=== PATIENT | male | born 1970 | race Caucasian/White ===

== ENCOUNTER 2016-08-14 11:54 | Emergency (ER) | payer SELFPAY ==
[2016-08-14 13:25] LABS: Urine Drugs of Abuse Note Disclamer
[2016-08-14 13:45] LABS: Bilirubin,Urine NEG (Negative); Blood,Urine NEG (Negative); Ketones,Urine TR mg/dL (Negative); Leukocyte Esterase,Urine NEG (Negative); Mucus,Urine FEW /HPF; Nitrite,Urine NEG (Negative); Urobilinogen,Urine < 2.0 mg/dL (<2.0); WBC,Urine < 1.0 /HPF (0.0-6.0)
[2016-08-14 14:01] LABS: Basophils % (Auto) 0.9 % (0.0-1.8); Eosinophils % (Auto) 0.7 % (0.0-4.3); Hematocrit 45.4 % (35.5-45.6); Hemoglobin 14.9 gm/dl (11.8-15.2); Mean Corpuscular HGB Conc 33 % (32-34); Mean Corpuscular Hemoglobin 32 pg (28-32); Mean Corpuscular Volume 98 fl (84-94); Platelet Count 172 K/mm3 (140-440); Red Blood Count 4.63 M/mm3 (3.65-5.03); Red Cell Distribution Width 17.6 % (13.2-15.2); White Blood Count 8.2 K/mm3 (4.5-11.0)
[2016-08-14 14:08] LABS: Anion Gap 23 mmol/L; BUN/Creatinine Ratio 12.22; Blood Urea Nitrogen 11 mg/dL (9-20); Calcium 9.8 mg/dL (8.4-10.2); Carbon Dioxide 26 mmol/L (22-30); Chloride 101.6 mmol/L (98-107); Glucose 112 mg/dL (75-100); Potassium 5.1 mmol/L (3.6-5.0); Sodium 145 mmol/L (137-145)
[2016-08-14] MEDS ORDERED: ATIVAN PO ONE (22:42)
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
[2016-08-14 23:07] VITALS: BP 161/99
== END 2016-08-14 23:35 | disposition home or self-care (01) ==
LOC: ED 11:54
DX: F10.129 Alcohol abuse with intoxication, unspecified (principal); I10 Essential (primary) hypertension; E11.9 Type 2 diabetes mellitus without complications; J45.909 Unspecified asthma, uncomplicated; F17.200 Nicotine dependence, unspecified, uncomplicated
CPT/HCPCS: 36415; 80048; 80307; 81001; 82962; 83735; 85025; 99284; G0480; 80320

== ENCOUNTER 2016-10-24 21:24 | Emergency (ER) | payer SELFPAY ==
[2016-10-24 22:15] LABS: Urine Drugs of Abuse Note Disclamer
[2016-10-24 22:26] LABS: Bilirubin,Urine NEG (Negative); Blood,Urine SM (Negative); Ketones,Urine NEG (Negative); Leukocyte Esterase,Urine NEG (Negative); Mucus,Urine FEW /HPF; Nitrite,Urine NEG (Negative); Urobilinogen,Urine < 2.0 mg/dL (<2.0); WBC,Urine < 1.0 /HPF (0.0-6.0)
[2016-10-24 22:48] LABS: Basophils % (Auto) 0.8 % (0.0-1.8); Eosinophils % (Auto) 1.9 % (0.0-4.3); Hematocrit 43.2 % (35.5-45.6); Hemoglobin 14.7 gm/dl (11.8-15.2); Mean Corpuscular HGB Conc 34 % (32-34); Mean Corpuscular Hemoglobin 34 pg (28-32); Mean Corpuscular Volume 99 fl (84-94); Platelet Count 146 K/mm3 (140-440); Red Blood Count 4.35 M/mm3 (3.65-5.03); Red Cell Distribution Width 14.6 % (13.2-15.2); White Blood Count 6.3 K/mm3 (4.5-11.0)
[2016-10-24 23:06] LABS: Anion Gap 21 mmol/L; BUN/Creatinine Ratio 21.42; Blood Urea Nitrogen 15 mg/dL (9-20); Calcium 8.4 mg/dL (8.4-10.2); Carbon Dioxide 22 mmol/L (22-30); Chloride 100.5 mmol/L (98-107); Glucose 107 mg/dL (75-100); Potassium 3.8 mmol/L (3.6-5.0); Sodium 140 mmol/L (137-145)
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
[2016-10-25 03:18] VITALS: BP 122/74
== END 2016-10-25 03:31 | disposition home or self-care (01) ==
LOC: ED 21:24
DX: F10.129 Alcohol abuse with intoxication, unspecified (principal); I10 Essential (primary) hypertension; E11.9 Type 2 diabetes mellitus without complications; J45.909 Unspecified asthma, uncomplicated; F17.200 Nicotine dependence, unspecified, uncomplicated
CPT/HCPCS: 36415; 80048; 80307; 81001; 85025; 99284; G0480; 80320

== ENCOUNTER 2016-11-05 12:07 | Emergency (ER) | payer SELFPAY ==
--- NOTE | 2016-11-05 12:35 | Emergency Department Report ---
Chief Complaint: Alcohol Stated Complaint: SEIZURE/HALLUECINATING/CHEST PAIN /MH Time Seen by Provider: 11/05/16 12:30 - HPI History of Present Illness: PT states he has a hx of ETOH abuse. PT states he thinks he was going thru withdrawal because his reported that he had a seizure. PT states his last drink of ETOH was 3-4 hours ago. PT states he wants to get help. PT states he will hallucinate if he does not drink. - ROS Review of Systems: + ETOH abuse since 2010 + cp after sz + sz - Exam Physical Exam: pt is alert and oriented in triage, no tremors noted pt denies hallucinations currently MSE screening note: Focused history and physical exam performed. Due to findings the following was ordered: ekg, ct, xr, lab ED Disposition for MSE Condition: Stable
--- NOTE | 2016-11-05 12:50 | XRay Report ---
ROUTINE CHEST, TWO VIEWS: HISTORY: chest pain. The trachea, heart, mediastinal contour, lung cisneros and bony thorax are unremarkable. IMPRESSION: Unremarkable chest x-ray.
--- NOTE | 2016-11-05 13:19 | Cat Scan Report ---
CT HEAD WITHOUT CONTRAST: HISTORY: Alcohol intoxication, mental status changes. Serial contiguous axial images were obtained through the cranium. Intravenous contrast material was not administered. The ventricles are normal in size and appearance. There is no mass effect or midline shift. No areas of abnormally increased or decreased attenuation are seen. No mass lesion is seen. The mastoid air cells and visualized portions of the sinuses are normal. IMPRESSION: Cranial CT scan within normal limits. No change since 05/24/15.
[2016-11-05 14:37] LABS: Basophils % (Auto) 1.5 % (0.0-1.8); Eosinophils % (Auto) 0.6 % (0.0-4.3); Hematocrit 46.5 % (35.5-45.6); Mean Corpuscular HGB Conc 34 % (32-34); Mean Corpuscular Hemoglobin 35 pg (28-32); Mean Corpuscular Volume 100 fl (84-94); Platelet Count 184 K/mm3 (140-440); Red Blood Count 4.63 M/mm3 (3.65-5.03); Red Cell Distribution Width 14.7 % (13.2-15.2); White Blood Count 10.7 K/mm3 (4.5-11.0)
[2016-11-05 14:39] LABS: Urine Drugs of Abuse Note Disclamer
[2016-11-05 14:45] LABS: Alanine Aminotransferase 94 units/L (7-56); Albumin 4.3 g/dL (3.9-5); Albumin/Globulin Ratio 1.2 %; Alkaline Phosphatase 66 units/L (35-129); Anion Gap 21 mmol/L; Blood Urea Nitrogen 9 mg/dL (9-20); Calcium 9.3 mg/dL (8.4-10.2); Carbon Dioxide 26 mmol/L (22-30); Chloride 96.6 mmol/L (98-107); Glucose 147 mg/dL (75-100); INR 0.8 (0.87-1.13); Lipase 144 units/L (13-60); Potassium 4.8 mmol/L (3.6-5.0); Sodium 139 mmol/L (137-145); Total Protein 7.9 g/dL (6.3-8.2)
[2016-11-05 14:52] LABS: Bacteria,Urine 1+ /HPF (Negative); Bilirubin,Urine NEG (Negative); Blood,Urine SM (Negative); Ketones,Urine NEG (Negative); Leukocyte Esterase,Urine NEG (Negative); Nitrite,Urine NEG (Negative); Urobilinogen,Urine < 2.0 mg/dL (<2.0)
[2016-11-05 14:58] LABS: RBC,Urine < 1.0 /HPF (0.0-6.0); WBC,Urine < 1.0 /HPF (0.0-6.0)
[2016-11-05 15:24] VITALS: BP 121/84
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
[2016-11-05] MEDS ORDERED: VITAMIN B-1 100 MG, FOLVITE 1 MG, INFUVITE 10 ML in NACL 0.9% 1000 ML 1,000 ML IV ONE (16:25)
== END 2016-11-05 18:34 | disposition home or self-care (01) ==
LOC: ED 12:07
DX: F10.10 Alcohol abuse, uncomplicated (principal); I10 Essential (primary) hypertension; E11.9 Type 2 diabetes mellitus without complications; J45.909 Unspecified asthma, uncomplicated; E78.00 Pure hypercholesterolemia, unspecified; F17.200 Nicotine dependence, unspecified, uncomplicated
CPT/HCPCS: 36415; 70450; 71020; 80053; 80307; 81001; 83690; 83735; 84484; 85025; 85610; 85730; 93005; 93010; 96365; 96366; 99284; G0480; J3411; J7030; 80320

== ENCOUNTER 2018-04-21 09:14 | Emergency (ER) | payer SELFPAY ==
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
[2018-04-21 10:35] LABS: Basophils # (Auto) 0.1 K/mm3 (0.0-0.1); Basophils % (Auto) 1.3 % (0.0-1.8); Eosinophils % (Auto) 0.3 % (0.0-4.3); Hematocrit 46.6 % (35.5-45.6); Hemoglobin 15.8 gm/dl (11.8-15.2); Lymphocytes # (Auto) 1.8 K/mm3 (1.2-5.4); Lymphocytes % (Auto) 23.7 % (13.4-35.0); Mean Corpuscular HGB Conc 34 % (32-34); Mean Corpuscular Volume 96 fl (84-94); Monocytes # (Auto) 0.6 K/mm3 (0.0-0.8); Monocytes % (Auto) 8.1 % (0.0-7.3); Platelet Count 206 K/mm3 (140-440); Red Blood Count 4.86 M/mm3 (3.65-5.03); Red Cell Distribution Width 14.8 % (13.2-15.2)
[2018-04-21 10:37] LABS: Color,Urine Yellow (Yellow)
[2018-04-21 10:38] LABS: Bilirubin,Urine NEG (Negative); Blood,Urine SM (Negative); Mucus,Urine FEW /HPF; Urobilinogen,Urine < 2.0 mg/dL (<2.0)
[2018-04-21 10:56] LABS: Alanine Aminotransferase 30 units/L (7-56); Albumin 4.1 g/dL (3.9-5); BUN/Creatinine Ratio 19; Blood Urea Nitrogen 17 mg/dL (9-20); Calcium 8.3 mg/dL (8.4-10.2); Hemolysis Index 25
[2018-04-21] MEDS ORDERED: VITAMIN B-1 100 MG, FOLVITE 1 MG, INFUVITE 10 ML in NACL 0.9% 1000 ML 1,000 ML IV ONE (11:06)
[2018-04-21] MEDS ORDERED: LIBRIUM PO PRN ×2 (11:10)
[2018-04-21] MEDS ORDERED: ATIVAN IV PRN (11:10)
[2018-04-21] MEDS ORDERED: ATIVAN PO PRN (11:10)
[2018-04-21 11:16] LABS: Amphetamine Screen,Urine PRESUMPTIVE NEGATIVE; Benzodiazepines Screen,Urine PRESUMPTIVE NEGATIVE; Cannabinoid Screen,Urine PRESUMPTIVE NEGATIVE; Cocaine Screen,Urine PRESUMPTIVE NEGATIVE; Methadone Screen,Urine PRESUMPTIVE NEGATIVE; Opiate Screen,Urine PRESUMPTIVE NEGATIVE
--- NOTE | 2018-04-21 11:50 | XRay Report ---
LEFT ELBOW, 3 views: History: left elbow pain. The bony architecture is intact without evidence of fracture or dislocation. No significant soft tissue abnormality is seen. IMPRESSION: Normal left elbow.
--- NOTE | 2018-04-21 11:50 | XRay Report ---
LEFT KNEE, 3 views: History: Fall, knee pain. Findings: Normal bone mineralization. Mild osteoarthritic changes are identified. No evidence for fracture, osteochondral defect or bone lesion. Large joint effusion is suspected on the lateral image. Bipartite patella is noted. IMPRESSION: Mild degenerative changes. Large joint effusion. Internal derangement is suspected MRI could be obtained. No acute bony injury is detected.
--- NOTE | 2018-04-21 13:50 | Consultation ---
History of Present Illness - Reason for Consult Consult date: 04/21/18 Reason for consult: Mental Health Evaluation Requesting physician: GINNY SAVAGE - Chief Complaint Chief complaint: "I want to stop drinking" - History of Present Psychiatric Illness 47-year-old male whop presented to the ER for ETOH. This patient is known to me. He stated that he started back drinking a couple of days ago because he was "stressed." He stated he isn't making enough money to help his with their financial obligations. He stated working out a plan with his to lessen the financial load on her. He stated that his main issue now is to stay "sober." He stated that he is willing to commit to rehab services once discharged. The patient has a hx of depression and took Remeron. He stated that he don"t like th e side effect of the medication and would like to try another antidepressant. He denies SI/HO's and AVH's. He denies erratic sleep and a poor appetite. He denies recreational drug use. Medications and Allergies Allergies Allergy/AdvReac Type Severity Reaction Status Date / Time No Known Allergies Allergy Verified 04/21/18 09:19 Home Medications Medication Instructions Recorded Confirmed Last Taken Type chlordiazePOXIDE [Librium] 25 mg PO DAILY #20 capsule 08/14/16 Unknown Rx LORazepam [Ativan] 0.5 mg PO BID PRN #14 tablet 11/05/16 Unknown Rx amLODIPine [Norvasc] 5 mg PO DAILY 02/01/18 02/01/18 Unknown History HYDROcodone/APAP 5-325 [[place] 1 each PO Q4HR PRN #12 tablet 03/10/18 Unknown Rx 5/325] Ibuprofen [Motrin] 800 mg PO Q8HR PRN #20 tablet 03/10/18 Unknown Rx Mirtazapine [Remeron] 15 mg PO QHS #20 tablet 03/24/18 Unknown Rx Active Meds: Active Medications Chlordiazepoxide HCl (Librium) 50 mg PO Q1HR PRN PRN Reason: CIWA-Ar 8-15 Chlordiazepoxide HCl (Librium) 100 mg PO Q1HR PRN PRN Reason: CIWA-Ar 16-25 Thiamine HCl 100 mg/ Folic Acid 1 mg/ Multivitamins/Minerals 10 ml/ Sodium Chloride 1,011.2 mls @ 250 mls/hr IV ONCE ONE Stop: 04/21/18 15:08 Last Admin: 04/21/18 11:17 Dose: 250 mls/hr Documented by: Lorazepam (Ativan) 4 mg PO Q1HR PRN PRN Reason: CIWA-Ar 16-25 Lorazepam (Ativan) 4 mg IV Q15MIN PRN PRN Reason: CIWA-Ar >25 Past psychiatric history - Past Medical History Past Medical History: No medical history Past Surgical History: No surgical history - past Psychiatric treatment and history psychiatric treatment history: Inpatient psy setting in the past. Hx of alcohol abuse. Denies a fam psy hx. - Social History Social history: lives with family Mental Status Exam - Vital signs Last Vital Signs Temp 98.4 F 04/21/18 09:19 Pulse 106 H 04/21/18 09:19 Resp 18 04/21/18 09:19 BP 138/85 04/21/18 09:19 Pulse Ox 98 04/21/18 09:19 - Exam Narrative exam: MSE: Appearance: calm, cooperative Behavior: regular eye contact Speech: regular rate and tone Mood: "okay" Affect: congruent to mood Thought Process: circumstantial Thought Content: denies SI/HI's and AVH's Motor Activity: ambulatory Cognition: A/O x3 Insight: fair Judgment: variable Results Result Diagrams: 04/21/18 10:26 04/21/18 10:26 Abnormal lab results 04/21/18 04/21/18 04/21/18 Range/Units 10:26 10:26 10:26 Hgb 15.8 H (11.8-15.2) gm/dl Hct 46.6 H (35.5-45.6) % MCV 96 H (84-94) fl MCH 33 H (28-32) pg [place] % (Auto) 8.1 H (0.0-7.3) % Glucose 159 H (75-100) mg/dL Calcium 8.3 L (8.4-10.2) mg/dL AST 45 H (5-40) units/L Plasma/Serum Alcohol 0.32 H (0-0.07) % All other labs normal. Assessment and Plan Assessment and plan: Impression: Hx of Depression. Alcohol Use DO. Alcohol Intoxication. Today the patient is calm and cooperative during the assessment. Recommendation/Plan: Start Zoloft 50 mg Po daily for depression. Continue CIWA. Discussed possible suicidality/medication induced tonia with the patient reference Zoloft. Discussed the importance to abstain from alcohol consumption (etoh). Dispo: Once the patient is medically clear, he can follow up with [facility] for outpatient psy services. Staffed with Dr Liv Sewell.
[2018-04-21] MEDS ORDERED: ZOLOFT PO SCH (14:00)
[2018-04-21 14:32] VITALS: BP 111/80
== END 2018-04-21 14:00 | disposition left against medical advice (07) ==
LOC: ED 09:14
DX: F32.9 Major depressive disorder, single episode, unspecified (principal); F10.129 Alcohol abuse with intoxication, unspecified; M25.562 Pain in left knee; M79.602 Pain in left arm
CPT/HCPCS: 29505; 36415; 73080; 73564; 80053; 80307; 81001; 83735; 85025; 96365; 96366; 99284; G0480; J3411; J7030; 80320

== ENCOUNTER 2018-04-22 09:07 | Emergency (ER) | payer SELFPAY ==
[2018-04-22] MEDS ORDERED: NACL 0.9% 1000 ML 1,000 ML IV ONE (10:28)
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
[2018-04-22 10:55] LABS: Basophils # (Auto) 0.1 K/mm3 (0.0-0.1); Eosinophils % (Auto) 0.2 % (0.0-4.3); Hemoglobin 15.8 gm/dl (11.8-15.2); Lymphocytes # (Auto) 1.2 K/mm3 (1.2-5.4); Lymphocytes % (Auto) 19.2 % (13.4-35.0); Mean Corpuscular HGB Conc 34 % (32-34); Mean Corpuscular Volume 94 fl (84-94); Monocytes # (Auto) 0.5 K/mm3 (0.0-0.8); Monocytes % (Auto) 8.1 % (0.0-7.3); Platelet Count 194 K/mm3 (140-440); Red Cell Distribution Width 14.6 % (13.2-15.2)
[2018-04-22] MEDS ORDERED: VITAMIN B-1 100 MG, FOLVITE 1 MG, INFUVITE 10 ML in NACL 0.9% 1000 ML 1,000 ML IV ONE (11:00)
[2018-04-22 11:02] LABS: Alanine Aminotransferase 36 units/L (7-56); Albumin 4.2 g/dL (3.9-5); BUN/Creatinine Ratio 21; Blood Urea Nitrogen 15 mg/dL (9-20); Calcium 8.2 mg/dL (8.4-10.2); Hemolysis Index 11
[2018-04-22] MEDS ORDERED: LIBRIUM PO PRN ×2 (13:27)
[2018-04-22] MEDS ORDERED: ATIVAN PO PRN (13:27)
[2018-04-22] MEDS ORDERED: ZOFRAN IV ONE ×2 (13:29→17:47)
[2018-04-22] MEDS ORDERED: TYLENOL PO ONE (13:39)
[2018-04-22 13:57] LABS: Bilirubin,Urine NEG (Negative); Blood,Urine NEG (Negative); Color,Urine Yellow (Yellow); Mucus,Urine FEW /HPF; Urobilinogen,Urine < 2.0 mg/dL (<2.0)
[2018-04-22 14:08] LABS: Amphetamine Screen,Urine PRESUMPTIVE NEGATIVE; Benzodiazepines Screen,Urine PRESUMPTIVE NEGATIVE; Cannabinoid Screen,Urine PRESUMPTIVE NEGATIVE; Cocaine Screen,Urine PRESUMPTIVE NEGATIVE; Methadone Screen,Urine PRESUMPTIVE NEGATIVE; Opiate Screen,Urine PRESUMPTIVE NEGATIVE
[2018-04-22] MEDS ORDERED: ZOFRAN ONE (17:42)
[2018-04-22] MEDS: ATIVAN IV PRN (21:06)
[2018-04-23] MEDS ORDERED: ZOFRAN IV ONE (01:46)
[2018-04-23 01:53] VITALS: BP 130/79
[2018-04-23] MEDS: ATIVAN IV PRN (01:53)
== END 2018-04-23 06:25 | disposition home or self-care (01) ==
LOC: ED 09:07
DX: F10.230 Alcohol dependence with withdrawal, uncomplicated (principal); M25.562 Pain in left knee; I10 Essential (primary) hypertension; E11.9 Type 2 diabetes mellitus without complications; J45.909 Unspecified asthma, uncomplicated; F17.200 Nicotine dependence, unspecified, uncomplicated; E78.00 Pure hypercholesterolemia, unspecified; Z98.890 Other specified postprocedural states; Z79.899 Other long term (current) drug therapy
CPT/HCPCS: 29505; 36415; 80053; 80307; 81001; 85025; 96365; 96366; 96375; 96376; 99284; G0480; J2060; J2405; J3411; J7030; 80320

== ENCOUNTER 2018-05-28 13:06 | Emergency (ER) | payer SELFPAY ==
--- NOTE | 2018-05-28 13:32 | Emergency Department Report ---
Blank Doc - Documentation Documentation: Patient is here for Detox This initial assessment diagnostic orders/clinical plan/treatment (s) is/Are subject change based on patient's health status, clinical progression and re- assessment by fellow clinical providers in the ED. Further treatment and work-up at subsequent clinical providers discretion. Patient/guardians urged not to elope from their condition may be serious if not clinically assessed and managed. Initial order include:
[2018-05-28 13:50] LABS: Basophils # (Auto) 0.1 K/mm3 (0.0-0.1); Basophils % (Auto) 1.3 % (0.0-1.8); Eosinophils # (Auto) 0.1 K/mm3 (0.0-0.4); Eosinophils % (Auto) 0.8 % (0.0-4.3); Hematocrit 42.1 % (35.5-45.6); Hemoglobin 14.4 gm/dl (11.8-15.2); Lymphocytes # (Auto) 1.1 K/mm3 (1.2-5.4); Lymphocytes % (Auto) 14.7 % (13.4-35.0); Mean Corpuscular HGB Conc 34 % (32-34); Mean Corpuscular Hemoglobin 35 pg (28-32); Mean Corpuscular Volume 101 fl (84-94); Monocytes # (Auto) 0.8 K/mm3 (0.0-0.8); Monocytes % (Auto) 10.6 % (0.0-7.3); Platelet Count 274 K/mm3 (140-440); Red Blood Count 4.16 M/mm3 (3.65-5.03); Red Cell Distribution Width 17.1 % (13.2-15.2)
[2018-05-28 14:12] LABS: Alanine Aminotransferase 114 units/L (7-56); Albumin 4.3 g/dL (3.9-5); BUN/Creatinine Ratio 9; Blood Urea Nitrogen 7 mg/dL (9-20); Calcium 9.1 mg/dL (8.4-10.2); Hemolysis Index 9
[2018-05-28] MEDS ORDERED: NACL 0.9% 1000 ML 1,000 ML IV ONE (16:03)
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
[2018-05-28] MEDS ORDERED: VITAMIN B-1 PO ONE (17:00)
[2018-05-28] MEDS ORDERED: FOLVITE 1 MG, INFUVITE 10 ML in NACL 0.9% 1000 ML 1,000 ML IV ONE (17:30)
[2018-05-28] MEDS ORDERED: ATIVAN IV PRN (19:05)
[2018-05-28] MEDS: ATIVAN PO PRN ×3 (19:50→23:36)
[2018-05-29] MEDS: ATIVAN PO PRN (03:05)
[2018-05-29 05:33] VITALS: BP 145/78
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
== END 2018-05-29 08:43 | disposition left against medical advice (07) ==
LOC: ED 13:06
DX: F10.239 Alcohol dependence with withdrawal, unspecified (principal); I10 Essential (primary) hypertension; E11.9 Type 2 diabetes mellitus without complications; E78.00 Pure hypercholesterolemia, unspecified
CPT/HCPCS: 36415; 80053; 85025; 96365; 96375; 99284; G0480; J2060; J7030; 80320

== ENCOUNTER 2018-06-06 09:18 | Emergency (ER) | payer OTHER ==
[2018-06-06 10:37] LABS: Hematocrit 42.6 % (35.5-45.6); Hemoglobin 14.5 gm/dl (11.8-15.2); Mean Corpuscular HGB Conc 34 % (32-34); Mean Corpuscular Volume 103 fl (84-94); Platelet Count 233 K/mm3 (140-440); Red Blood Count 4.13 M/mm3 (3.65-5.03); Red Cell Distribution Width 17.3 % (13.2-15.2)
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
[2018-06-06 10:52] LABS: BUN/Creatinine Ratio 13; Blood Urea Nitrogen 9 mg/dL (9-20); Calcium 8.9 mg/dL (8.4-10.2); Hemolysis Index 18
[2018-06-06] MEDS ORDERED: NACL 0.9% 1000 ML 1,000 ML ONE (11:31)
[2018-06-06 11:39] LABS: Bilirubin,Urine NEG (Negative); Blood,Urine NEG (Negative); Color,Urine Straw (Yellow); Urobilinogen,Urine < 2.0 mg/dL (<2.0); WBC,Urine < 1.0 /HPF (0.0-6.0)
[2018-06-06] MEDS ORDERED: NACL 0.9% IV ONE (11:48)
[2018-06-06 11:55] LABS: Amphetamine Screen,Urine PRESUMPTIVE NEGATIVE; Benzodiazepines Screen,Urine PRESUMPTIVE NEGATIVE; Cannabinoid Screen,Urine PRESUMPTIVE NEGATIVE; Cocaine Screen,Urine PRESUMPTIVE NEGATIVE; Methadone Screen,Urine PRESUMPTIVE NEGATIVE; Opiate Screen,Urine PRESUMPTIVE NEGATIVE
[2018-06-06] MEDS ORDERED: NACL 0.9% 1000 ML 1,000 ML IV ONE (12:12)
[2018-06-06 12:42] LABS: Total Cells Counted 100
[2018-06-06 12:43] LABS: Anisocytosis 1+; Band Neutrophils # (Manual) 0.1 K/mm3; Basophils % (Manual) 0 % (0.0-1.8); Macrocytosis 1+; Platelet Estimate Consistent w Auto
[2018-06-06] MEDS ORDERED: ATIVAN IV ONE (14:37)
[2018-06-06] MEDS ORDERED: ATIVAN ONE (14:41)
[2018-06-06] MEDS ORDERED: ATIVAN IV PRN ×2 (17:27)
[2018-06-06] MEDS: ATIVAN IV PRN ×3 (17:37→22:05)
[2018-06-07] MEDS: ATIVAN IV PRN ×4 (08:22→22:45)
[2018-06-07] MEDS ORDERED: NORVASC PO SCH (10:00)
[2018-06-07 20:04] VITALS: BP 143/97
[2018-06-07] MEDS ORDERED: HABITROL TD ONE (21:00)
[2018-06-08] MEDS: ATIVAN IV PRN (00:43)
== END 2018-06-08 02:37 ==
LOC: ED 09:18
DX: F10.129 Alcohol abuse with intoxication, unspecified (principal); R45.851 Suicidal ideations; F32.9 Major depressive disorder, single episode, unspecified; I10 Essential (primary) hypertension; E11.9 Type 2 diabetes mellitus without complications; J45.909 Unspecified asthma, uncomplicated
CPT/HCPCS: 36415; 80048; 80307; 81001; 82962; 83735; 85007; 85025; 96374; 96376; 99285; G0480; J2060; J7030; 80320

== ENCOUNTER 2018-06-25 19:09 | Emergency (ER) | payer SELFPAY ==
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
[2018-06-25] MEDS ORDERED: NACL 0.9% 1000 ML 1,000 ML IV ONE (20:22)
[2018-06-25] MEDS ORDERED: HALDOL IM ONE (20:47)
[2018-06-25] MEDS ORDERED: BENADRYL IM ONE (20:48)
[2018-06-25] MEDS ORDERED: BENADRYL ONE (20:48)
[2018-06-25] MEDS ORDERED: HALDOL ONE (20:48)
[2018-06-25 20:51] LABS: Bilirubin,Urine NEG (Negative); Blood,Urine NEG (Negative); Color,Urine Straw (Yellow); Protein,Urine <15 mg/dL mg/dL (Negative); Urobilinogen,Urine < 2.0 mg/dL (<2.0)
[2018-06-25 20:59] LABS: Amphetamine Screen,Urine PRESUMPTIVE NEGATIVE; Benzodiazepines Screen,Urine PRESUMPTIVE NEGATIVE; Cannabinoid Screen,Urine PRESUMPTIVE NEGATIVE; Cocaine Screen,Urine PRESUMPTIVE NEGATIVE; Methadone Screen,Urine PRESUMPTIVE NEGATIVE; Opiate Screen,Urine PRESUMPTIVE NEGATIVE
[2018-06-25 20:59] LABS: Basophils # (Auto) 0.1 K/mm3 (0.0-0.1); Basophils % (Auto) 1.1 % (0.0-1.8); Eosinophils # (Auto) 0.1 K/mm3 (0.0-0.4); Eosinophils % (Auto) 1.3 % (0.0-4.3); Hematocrit 43.2 % (35.5-45.6); Lymphocytes # (Auto) 2.1 K/mm3 (1.2-5.4); Lymphocytes % (Auto) 27.3 % (13.4-35.0); Mean Corpuscular HGB Conc 35 % (32-34); Mean Corpuscular Hemoglobin 35 pg (28-32); Mean Corpuscular Volume 101 fl (84-94); Monocytes # (Auto) 0.7 K/mm3 (0.0-0.8); Monocytes % (Auto) 8.5 % (0.0-7.3); Platelet Count 441 K/mm3 (140-440); Red Cell Distribution Width 15.6 % (13.2-15.2)
[2018-06-25] MEDS ORDERED: VITAMIN B-1 PO ONE (21:00)
[2018-06-25 21:14] LABS: BUN/Creatinine Ratio 10; Blood Urea Nitrogen 7 mg/dL (9-20)
[2018-06-25 21:15] LABS: Alanine Aminotransferase 44 units/L (7-56); Albumin 4.4 g/dL (3.9-5); Calcium 9.2 mg/dL (8.4-10.2); Hemolysis Index 13
[2018-06-25] MEDS ORDERED: MAGNESIUM SULFATE IV ONE (21:15)
[2018-06-25] MEDS ORDERED: FOLVITE IV ONE (21:15)
[2018-06-25] MEDS ORDERED: INFUVITE IV ONE (21:15)
[2018-06-25] MEDS ORDERED: VITAMIN B1 IV ONE (21:15)
[2018-06-25] MEDS ORDERED: [UNRECOGNIZED DRUG - OTHER] IV ONE (21:15)
--- NOTE | 2018-06-26 01:25 | XRay Report ---
PROCEDURE: XR RIBS UNI W PA CHEST 3+V RT TECHNIQUE: A PA view of the chest was obtained along with 3 views of the right ribs. HISTORY: right rib pain after fall COMPARISONS: 11/05/2016 FINDINGS: There is no evidence of acute right-sided rib fracture. There is no pneumothorax. There is minimal at electasis versus scarring in the left lung base. The heart size is normal. Pleural fluid is not seen. IMPRESSION: No evidence of acute right-sided rib fracture. Minimal atelectasis versus scarring left lung base. No pneumothorax.. This document is electronically signed by Corey Shaw MD., June 26 2018 01:23:24 AM ET
[2018-06-26] MEDS: BENADRYL IM PRN ×2 (07:25→13:46)
[2018-06-26] MEDS: HALDOL IM PRN ×2 (07:25→16:59)
[2018-06-26] MEDS ORDERED: MOTRIN PO ONE (09:30)
[2018-06-26] MEDS ORDERED: ATIVAN IV PRN ×3 (20:47)
[2018-06-27] MEDS ORDERED: MOTRIN PO ONE ×2 (12:54→13:00)
[2018-06-27] MEDS ORDERED: TYLENOL PO ONE (20:44)
[2018-06-28] MEDS ORDERED: MOTRIN PO ONE (01:19)
[2018-06-28 14:31] VITALS: BP 129/99
--- NOTE | 2018-06-28 14:47 | Consultation ---
History of Present Illness - Reason for Consult Consult date: 06/28/18 Reason for consult: Mental Health Evaluation Requesting physician: UNRULY HERNÁNDEZ - Chief Complaint Chief complaint: "I was never suicidal" - History of Present Psychiatric Illness 48 y.o. male who presented to the ER for SI's. This patient is known to me. Today the patient is calm and cooperative during the assessment. He stated that he was misunderstood when he stated something about "dying." He stated that he told the "doctor" that he was having right side pain. He stated that he said he felt like he was going to "" because of the pain. He is adamant that he didn't say he was suicidal. He stated that he came to the ER for the pain he was experiencing. He stated that he must stop drinking (etoh) and that's a priority. He denies SI/HI's and AVH's. He denies being depressed. He denies recreational drug use. Medications and Allergies Allergies Allergy/AdvReac Type Severity Reaction Status Date / Time No Known Allergies Allergy Verified 04/21/18 09:19 Home Medications Medication Instructions Recorded Confirmed Last Taken Type amLODIPine [Norvasc] 5 mg PO DAILY 02/01/18 06/26/18 Unknown History Active Meds: Active Medications Diphenhydramine HCl (Benadryl) 50 mg IM Q6H PRN PRN Reason: Agitation Last Admin: 06/26/18 13:46 Dose: 50 mg Documented by: Haloperidol Lactate (Haldol) 5 mg IM Q8H PRN PRN Reason: Agitation Last Admin: 06/26/18 16:59 Dose: 5 mg Documented by: Lorazepam (Ativan) 2 mg IV Q1HR PRN PRN Reason: CIWA-Ar 8-15 Last Admin: 06/28/18 01:14 Dose: 2 mg Documented by: Lorazepam (Ativan) 4 mg IV Q1HR PRN PRN Reason: CIWA-Ar 16-25 Last Admin: 06/26/18 21:29 Dose: 4 mg Documented by: Lorazepam (Ativan) 4 mg IV Q15MIN PRN PRN Reason: CIWA-Ar >25 Past psychiatric history - Past Medical History Past Medical History: No medical history Past Surgical History: No surgical history - past Psychiatric treatment and history psychiatric treatment history: Hx of alcohol abuse, depression, and a previous suicide attempt. Denies a fam psy hx. - Social History Social history: lives with family Mental Status Exam - Vital signs Last Vital Signs Temp 98.5 F 06/28/18 14:30 Pulse 100 H 06/28/18 14:30 Resp 17 06/28/18 14:30 BP 129/99 06/28/18 14:30 Pulse Ox 96 06/28/18 14:30 - Exam Narrative exam: MSE: Appearance: calm, cooperative Behavior: regular eye contact Speech: regular rate and tone Mood: "okay" Affect: congruent to mood Thought Process: linear Thought Content: denies SI/HI's with AVH's Motor Activity: ambulatory Cognition: A/Ox 3 Insight: appropriate Judgment: appropriate Results Result Diagrams: 06/25/18 20:52 06/25/18 20:52 All other labs normal. Assessment and Plan Assessment and plan: Impression:Alcohol Use DO. Hx of Depression. Today the patient is calm and cooperative during the assessment. The patient is no threat to self. Recommendation/Plan: Rescind 1013. The do not need a prescription. Discussed the importance to abstain from alcohol consumption (etoh). Dispo: The patient can follow up with [facility] for outpatient psy services. Will staff with Dr Liv Sewell.
== END 2018-06-28 16:53 | disposition home or self-care (01) ==
LOC: ED 19:09 → EEVIPCON 19:09 → ED 06-28 16:53
DX: F10.129 Alcohol abuse with intoxication, unspecified (principal); I10 Essential (primary) hypertension; E11.9 Type 2 diabetes mellitus without complications; J45.909 Unspecified asthma, uncomplicated; F17.200 Nicotine dependence, unspecified, uncomplicated; E78.00 Pure hypercholesterolemia, unspecified
CPT/HCPCS: 36415; 71101; 80053; 80307; 81001; 85025; 96365; 96372; 96375; 96376; 99285; G0480; J1200; J1630; J2060; J3411; J3475; J7030; 80320

== ENCOUNTER 2018-07-08 12:34 | Emergency (ER) | payer SELFPAY ==
[2018-07-08 12:54] VITALS: BP 117/74
--- NOTE | 2018-07-08 12:54 | Emergency Department Report ---
Blank Doc - Documentation Documentation: This is a 48-year-old male that presents with alcohol detox. Denies any SI/HI. This initial assessment/diagnostic orders/clinical plan/treatment(s) is/are subject to change based on patient's health status, clinical progression and re- assessment by fellow clinical providers in the ED. Further treatment and workup at subsequent clinical providers discretion. Patient/guardians urged not to elope from the ED as their condition may be serious if not clinically assessed and managed. Initial orders include: 1- Patient sent to [facility] for further evaluation and treatment 2- labs 3- UA
[2018-07-08 13:16] LABS: Basophils # (Auto) 0.2 K/mm3 (0.0-0.1); Basophils % (Auto) 1.5 % (0.0-1.8); Eosinophils # (Auto) 0.2 K/mm3 (0.0-0.4); Eosinophils % (Auto) 1.6 % (0.0-4.3); Hemoglobin 15.7 gm/dl (11.8-15.2); Lymphocytes % (Auto) 17.7 % (13.4-35.0); Mean Corpuscular HGB Conc 35 % (32-34); Mean Corpuscular Volume 101 fl (84-94); Monocytes # (Auto) 0.7 K/mm3 (0.0-0.8); Monocytes % (Auto) 6.4 % (0.0-7.3); Platelet Count 342 K/mm3 (140-440); Red Blood Count 4.47 M/mm3 (3.65-5.03); Red Cell Distribution Width 14.8 % (13.2-15.2)
[2018-07-08 13:36] LABS: BUN/Creatinine Ratio 13; Blood Urea Nitrogen 9 mg/dL (9-20); Calcium 9.2 mg/dL (8.4-10.2); Hemolysis Index 8
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
== END 2018-07-08 15:25 | disposition home or self-care (01) ==
LOC: ED 12:34
DX: F10.129 Alcohol abuse with intoxication, unspecified (principal); F10.20 Alcohol dependence, uncomplicated; I10 Essential (primary) hypertension; E11.9 Type 2 diabetes mellitus without complications; F32.9 Major depressive disorder, single episode, unspecified; J45.909 Unspecified asthma, uncomplicated; E78.00 Pure hypercholesterolemia, unspecified; F17.200 Nicotine dependence, unspecified, uncomplicated; Y90.1 Blood alcohol level of 20-39 mg/100 ml
CPT/HCPCS: 36415; 80048; 85025; 99284; G0480; 80320

== ENCOUNTER 2018-07-14 10:43 | Emergency (ER) | payer SELFPAY ==
[2018-07-14 11:27] LABS: Basophils # (Auto) 0.1 K/mm3 (0.0-0.1); Basophils % (Auto) 1.4 % (0.0-1.8); Eosinophils % (Auto) 0.6 % (0.0-4.3); Hematocrit 42.5 % (35.5-45.6); Hemoglobin 14.6 gm/dl (11.8-15.2); Lymphocytes # (Auto) 1.1 K/mm3 (1.2-5.4); Lymphocytes % (Auto) 15.4 % (13.4-35.0); Mean Corpuscular HGB Conc 34 % (32-34); Mean Corpuscular Volume 101 fl (84-94); Monocytes # (Auto) 0.5 K/mm3 (0.0-0.8); Monocytes % (Auto) 7.3 % (0.0-7.3); Platelet Count 234 K/mm3 (140-440); Red Blood Count 4.23 M/mm3 (3.65-5.03); Red Cell Distribution Width 14.4 % (13.2-15.2)
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
[2018-07-14 11:52] LABS: Alanine Aminotransferase 33 units/L (7-56); Albumin 3.9 g/dL (3.9-5); BUN/Creatinine Ratio 10; Blood Urea Nitrogen 6 mg/dL (9-20); Calcium 8.8 mg/dL (8.4-10.2); Hemolysis Index 8
[2018-07-14] MEDS ORDERED: VITAMIN B-1 100 MG, FOLVITE 1 MG, INFUVITE 10 ML in NACL 0.9% 1000 ML 1,000 ML IV ONE (12:00)
[2018-07-14] MEDS ORDERED: NACL 0.9% 1000 ML 1,000 ML IV ONE (12:07)
[2018-07-14] MEDS ORDERED: ZOFRAN ONE (13:32)
[2018-07-14] MEDS ORDERED: ZOFRAN IV ONE (13:38)
[2018-07-14 14:39] LABS: Bilirubin,Urine NEG (Negative); Blood,Urine SM (Negative); Color,Urine Straw (Yellow); RBC,Urine < 1.0 /HPF (0.0-6.0); Urobilinogen,Urine < 2.0 mg/dL (<2.0)
[2018-07-14 14:51] LABS: WBC,Urine < 1.0 /HPF (0.0-6.0)
[2018-07-14 14:51] LABS: Amphetamine Screen,Urine PRESUMPTIVE NEGATIVE; Benzodiazepines Screen,Urine PRESUMPTIVE NEGATIVE; Cannabinoid Screen,Urine PRESUMPTIVE NEGATIVE; Cocaine Screen,Urine PRESUMPTIVE NEGATIVE; Methadone Screen,Urine PRESUMPTIVE NEGATIVE; Opiate Screen,Urine PRESUMPTIVE NEGATIVE
[2018-07-14] MEDS ORDERED: ATIVAN IV PRN ×3 (15:54)
[2018-07-14 20:45] VITALS: BP 145/98
--- NOTE | 2018-07-15 13:39 | Consultation ---
History of Present Illness - Reason for Consult Consult date: 07/15/18 Reason for consult: Initial Psychiatric Evaluation - History of Present Psychiatric Illness Patient not seen. Patient transferred to a psychiatric facility. Medications and Allergies Allergies Allergy/AdvReac Type Severity Reaction Status Date / Time No Known Allergies Allergy Verified 07/14/18 11:01 Home Medications Medication Instructions Recorded Confirmed Last Taken Type amLODIPine [Norvasc] 5 mg PO DAILY 02/01/18 06/26/18 Unknown History Mental Status Exam - Vital signs Last Vital Signs Temp 97.6 F 07/14/18 10:59 Pulse 88 07/14/18 17:20 Resp 20 07/14/18 17:20 BP 145/98 07/14/18 17:20 Pulse Ox 96 07/14/18 17:20 Results Result Diagrams: 07/14/18 11:13 07/14/18 11:13 All other labs normal.
== END 2018-07-14 17:35 | disposition home or self-care (01) ==
LOC: ED 10:43
DX: F10.120 Alcohol abuse with intoxication, uncomplicated (principal); J45.909 Unspecified asthma, uncomplicated; I10 Essential (primary) hypertension; E78.00 Pure hypercholesterolemia, unspecified; E11.9 Type 2 diabetes mellitus without complications; F17.200 Nicotine dependence, unspecified, uncomplicated
CPT/HCPCS: 36415; 80048; 80053; 80307; 81001; 83690; 85025; 96365; 96366; 96375; 99284; G0480; J2405; J3411; J7030; 80320

== ENCOUNTER 2018-09-09 21:27 | Emergency (ER) | payer SELFPAY ==
--- NOTE | 2018-09-09 21:35 | Emergency Department Report ---
Blank Doc - Documentation Documentation: This is a 48-year-old male that presents with ETOH. This initial assessment/diagnostic orders/clinical plan/treatment(s) is/are subject to change based on patient's health status, clinical progression and re- assessment by fellow clinical providers in the ED. Further treatment and workup at subsequent clinical providers discretion. Patient/guardians urged not to elope from the ED as their condition may be serious if not clinically assessed and managed. Initial orders include: 1- Patient sent to MAIN ED for further evaluation and treatment 2- labs 3- UA
[2018-09-09 22:18] LABS: Basophils % (Auto) 0.6 % (0.0-1.8); Eosinophils # (Auto) 0.1 K/mm3 (0.0-0.4); Eosinophils % (Auto) 1.1 % (0.0-4.3); Hematocrit 41.2 % (35.5-45.6); Hemoglobin 14.1 gm/dl (11.8-15.2); Lymphocytes % (Auto) 15.6 % (13.4-35.0); Mean Corpuscular HGB Conc 34 % (32-34); Mean Corpuscular Volume 100 fl (84-94); Monocytes # (Auto) 0.3 K/mm3 (0.0-0.8); Monocytes % (Auto) 5.1 % (0.0-7.3); Platelet Count 223 K/mm3 (140-440); Red Blood Count 4.13 M/mm3 (3.65-5.03); Red Cell Distribution Width 16.8 % (13.2-15.2)
[2018-09-09 22:24] LABS: Bilirubin,Urine NEG (Negative); Blood,Urine NEG (Negative); Color,Urine Straw (Yellow); Protein,Urine <15 mg/dL mg/dL (Negative); Urobilinogen,Urine < 2.0 mg/dL (<2.0)
[2018-09-09 22:32] LABS: WBC,Urine < 1.0 /HPF (0.0-6.0)
[2018-09-09 22:33] LABS: Amphetamine Screen,Urine PRESUMPTIVE NEGATIVE; Benzodiazepines Screen,Urine PRESUMPTIVE NEGATIVE; Cannabinoid Screen,Urine PRESUMPTIVE NEGATIVE; Cocaine Screen,Urine PRESUMPTIVE NEGATIVE; Methadone Screen,Urine PRESUMPTIVE NEGATIVE; Opiate Screen,Urine PRESUMPTIVE NEGATIVE
[2018-09-09 22:33] LABS: Alanine Aminotransferase 35 units/L (7-56); Albumin 4.1 g/dL (3.9-5); BUN/Creatinine Ratio 9; Blood Urea Nitrogen 7 mg/dL (9-20); Calcium 9.2 mg/dL (8.4-10.2); Hemolysis Index 4
[2018-09-10] MEDS ORDERED: ATIVAN PO PRN (01:06)
[2018-09-10] MEDS ORDERED: LIBRIUM PO PRN ×2 (01:06)
[2018-09-10] MEDS ORDERED: HALDOL IM PRN (01:08)
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
[2018-09-10] MEDS: ATIVAN PO PRN ×3 (08:26→21:33)
--- NOTE | 2018-09-10 09:33 | Consultation ---
History of Present Illness - Reason for Consult Consult date: 09/10/18 Reason for consult: Mental Health Evaluation Requesting physician: HOLA MARQUEZ - Chief Complaint Chief complaint: "I was drunk" - History of Present Psychiatric Illness 48 y.o. male who presented to the ER for alcohol intoxication. This patient is known to me. Today the patient was calm during the assessment. He stated that he just decided to drink prior to coming to the ER> He denies any triggers why he decided to drink (etoh). He stated that he did a 5 day residential treatment weeks ago. He stated that the treatment went well, but again he relapsed. He denies SI/HI's and AVH's. He denies being depressed, a p oor appetite, and erratic sleep. He denies any side effects of his medication. Medications and Allergies Allergies Allergy/AdvReac Type Severity Reaction Status Date / Time No Known Allergies Allergy Verified 07/14/18 11:01 Home Medications Medication Instructions Recorded Confirmed Last Taken Type amLODIPine [Norvasc] 5 mg PO DAILY 02/01/18 08/15/18 Unknown History FLUoxetine [PROzac] 20 mg PO QDAY #15 capsule 08/18/18 Unknown Rx Active Meds: Active Medications Amlodipine Besylate (Norvasc) 5 mg PO DAILY NICOL Fluoxetine HCl (Prozac) 20 mg PO QDAY NICOL Haloperidol Lactate (Haldol) 5 mg IM Q6HR PRN PRN Reason: Agitation Lorazepam (Ativan) 4 mg PO Q1HR PRN PRN Reason: ZACARIAS-Rustam 16-25 Last Admin: 09/10/18 06:06 Dose: 4 mg Documented by: Lorazepam (Ativan) 2 mg PO Q1HR PRN PRN Reason: DEEPAKWA-Rustam 8-15 Last Admin: 09/10/18 08:26 Dose: 2 mg Documented by: Past psychiatric history - Past Medical History Past Medical History: No medical history Past Surgical History: No surgical history - past Psychiatric treatment and history psychiatric treatment history: Hx of depression and alcohol abuse. Denies a fam psy hx. - Social History Social history: lives with family Mental Status Exam - Vital signs Last Vital Signs Temp 99 F 09/10/18 07:30 Pulse 109 H 09/10/18 07:30 Resp 20 09/10/18 07:30 BP 128/92 09/10/18 07:30 Pulse Ox 98 09/10/18 07:30 - Exam Narrative exam: MSE: Appearance: calm Behavior: regular eye contact Speech: regular rate and loud tone Mood: "okay" Affect: congruent to mood Thought Process: circumstantial Thought Content: denies SI/HI's and AVH's Motor Activity: ambulatory Cognition: A/O x3 Insight: variable to fair Judgment: variable to fair Results Result Diagrams: 09/09/18 21:53 09/09/18 21:53 Abnormal lab results 09/09/18 09/09/18 09/09/18 Range/Units 21:53 21:53 21:53 MCV 100 H (84-94) fl MCH 34 H (28-32) pg RDW 16.8 H (13.2-15.2) % Lymph # 1.0 L (1.2-5.4) K/mm3 Seg Neutrophils % 77.6 H (40.0-70.0) % BUN 7 L (9-20) mg/dL Glucose 156 H (75-100) mg/dL AST 56 H (5-40) units/L Total Creatine Kinase (55-170) units/L Salicylates (2.8-20.0) mg/dL Acetaminophen (10.0-30.0) ug/mL Plasma/Serum Alcohol 0.39 H (0-0.07) % 09/10/18 09/10/18 09/10/18 Range/Units 00:00 00:00 00:00 MCV (84-94) fl MCH (28-32) pg RDW (13.2-15.2) % Lymph # (1.2-5.4) K/mm3 Seg Neutrophils % (40.0-70.0) % BUN (9-20) mg/dL Glucose (75-100) mg/dL AST (5-40) units/L Total Creatine Kinase 765 H (55-170) units/L Salicylates < 0.3 L (2.8-20.0) mg/dL Acetaminophen < 5.0 L (10.0-30.0) ug/mL Plasma/Serum Alcohol (0-0.07) % All other labs normal. Assessment and Plan Assessment and plan: Impression: Alcohol Use DO. Hx of Depression. Today the patient was calm during the assessment. Mild tremors noted (etoh). Recommendation/Plan: Reevaluate the patient's 2013 in 24 hours. Continue CIWA. Continue home medication Prozac 20 mg PO daily for depression. Discussed possible suicidality/medication induced tonia with the patient reference Prozac, he verbalized understanding. Discussed the importance to abstain from alcohol consumption (etoh). Dispo: If the patient's 2013 is rescinded in 24 hours, he can follow up with [facility] for outpatient rehab services. Will staff staff with Dr Liv Sewell.
[2018-09-10] MEDS ORDERED: NORVASC PO SCH (10:00)
[2018-09-10] MEDS ORDERED: PROzac PO SCH (10:00)
[2018-09-11] MEDS ORDERED: ZOFRAN ODT ONE (08:01)
[2018-09-11 08:05] VITALS: BP 140/100
--- NOTE | 2018-09-11 09:47 | Progress Note ---
Subjective - Reason for Consult Consult date: 09/11/18 Reason for consult: Psychiatry Follow-up - Chief Complaint Chief complaint: "I am ready to go" 48 y.o. male who presented to the ER for alcohol intoxication. This patient is known to me. Today the patient was calm during the assessment. he stated that he feel "okay" and plan to stop drinking (etoh). He stated that he is "serious now" and will continue rehab services when discharged. He denies SI/HI's and AVH's. He denies any side effects of his medication. Mental Status Exam - Vital signs Last Vital Signs Temp 98.3 F 09/11/18 08:04 Pulse 87 09/11/18 08:04 Resp 16 09/11/18 08:04 BP 140/100 09/11/18 08:04 Pulse Ox 99 09/11/18 08:04 - Exam Narrative exam: MSE: Appearance: calm, cooperative Behavior: regular eye contact Speech: regular rate and loud tone Mood: "okay" Affect: congruent to mood Thought Process: linear Thought Content: denies SI/HI's and AVH's Motor Activity: ambulatory Cognition: A/O x3 Insight: appropriate Judgment: appropriate Assessment and Plan Impression: Alcohol Use DO. Hx of Depression. Today the patient was calm during the assessment. Mild tremors noted (etoh). Recommendation/Plan: Rescind 2012. Continue Prozac 20 mg PO daily for d epression. Discussed possible suicidality/medication induced tonia with the patient reference Prozac, he verbalized understanding. Discussed the importance to abstain from alcohol consumption (etoh), he verbalized understanding. Dispo: The patient cam follow up at [facility] for outpatient rehab services. Will staff with Dr Liv Sewell.
--- NOTE | 2018-09-11 09:57 | Event Note ---
Date: 09/11/18 Clinical course is reviewed and appreciated. The patient does not appear to be in any acute distress. He is walking with a steady gait, alert and oriented, clinically sober at this time, and exhibits decision-making capacity. Psychiatric recommendations are reviewed and appreciated. I will discharge patient with as needed Librium, multivitamins with folic acid, we'll defer to outpatient primary care doctor to continue Prozac. Vital Signs 09/09/18 09/10/18 09/10/18 21:34 02:04 02:31 Temperature 98.1 F 98 F Pulse Rate 106 H 96 H Respiratory 18 16 20 Rate Blood Pressure 116/81 Blood Pressure 122/83 [Right] O2 Sat by Pulse 98 99 97 Oximetry 09/10/18 09/10/18 09/10/18 06:05 07:30 09:38 Temperature 99 F Pulse Rate 118 H 109 H 105 H Respiratory 18 20 Rate Blood Pressure 150/95 Blood Pressure 137/89 128/92 [Right] O2 Sat by Pulse 98 98 Oximetry 09/10/18 09/10/18 09/10/18 10:04 14:09 16:00 Temperature 98.8 F Pulse Rate 97 H 99 H Respiratory 20 20 18 Rate Blood Pressure Blood Pressure 158/97 124/74 [Right] O2 Sat by Pulse 98 94 99 Oximetry 09/10/18 09/10/18 09/11/18 18:15 20:00 02:00 Temperature 98.5 F 98.8 F 98.7 F Pulse Rate 107 H 98 H 100 H Respiratory 16 16 16 Rate Blood Pressure Blood Pressure 128/79 145/102 158/103 [Right] O2 Sat by Pulse 99 96 98 Oximetry 09/11/18 08:04 Temperature 98.3 F Pulse Rate 87 Respiratory 16 Rate Blood Pressure Blood Pressure 140/100 [Right] O2 Sat by Pulse 99 Oximetry Lab Results 09/09/18 09/09/18 09/09/18 Range/Units 21:53 21:53 21:53 WBC 6.1 (4.5-11.0) K/mm3 RBC 4.13 (3.65-5.03) M/mm3 Hgb 14.1 (11.8-15.2) gm/dl Hct 41.2 (35.5-45.6) % MCV 100 H (84-94) fl MCH 34 H (28-32) pg MCHC 34 (32-34) % RDW 16.8 H (13.2-15.2) % Plt Count 223 (140-440) K/mm3 Lymph % (Auto) 15.6 (13.4-35.0) % [place] % (Auto) 5.1 (0.0-7.3) % Eos % (Auto) 1.1 (0.0-4.3) % Baso % (Auto) 0.6 (0.0-1.8) % Lymph # 1.0 L (1.2-5.4) K/mm3 [place] # 0.3 (0.0-0.8) K/mm3 Eos # 0.1 (0.0-0.4) K/mm3 Baso # 0.0 (0.0-0.1) K/mm3 Seg Neutrophils % 77.6 H (40.0-70.0) % Seg Neutrophils # 4.8 (1.8-7.7) K/mm3 Sodium 140 (137-145) mmol/L Potassium 4.1 (3.6-5.0) mmol/L Chloride 99.5 (98-107) mmol/L Carbon Dioxide 28 (22-30) mmol/L Anion Gap 17 mmol/L BUN 7 L (9-20) mg/dL Creatinine 0.8 (0.8-1.5) mg/dL Estimated GFR > 60 ml/min BUN/Creatinine Ratio 9 % Glucose 156 H (75-100) mg/dL Calcium 9.2 (8.4-10.2) mg/dL Magnesium (1.7-2.3) mg/dL Total Bilirubin 0.20 (0.1-1.2) mg/dL AST 56 H (5-40) units/L ALT 35 (7-56) units/L Alkaline Phosphatase 86 (35-129) units/L Total Creatine Kinase (55-170) units/L Total Protein 8.1 (6.3-8.2) g/dL Albumin 4.1 (3.9-5) g/dL Albumin/Globulin Ratio 1.0 % Urine Color (Yellow) Urine Turbidity (Clear) Urine pH (5.0-7.0) Ur Specific [place] (1.003-1.030) Urine Protein (Negative) mg/dL Urine Glucose (UA) (Negative) mg/dL Urine Ketones (Negative) mg/dL Urine Blood (Negative) Urine Nitrite (Negative) Urine Bilirubin (Negative) Urine Urobilinogen (<2.0) mg/dL Ur Leukocyte Esterase (Negative) Urine WBC (Auto) (0.0-6.0) /HPF Urine RBC (Auto) (0.0-6.0) /HPF Salicylates (2.8-20.0) mg/dL Urine Opiates Screen Urine Methadone Screen Acetaminophen (10.0-30.0) ug/mL Ur Barbiturates Screen Ur Phencyclidine Scrn Ur Amphetamines Screen U Benzodiazepines Scrn Urine Cocaine Screen U Marijuana (THC) Screen Drugs of Abuse Note Plasma/Serum Alcohol 0.39 H (0-0.07) % 09/09/18 09/09/18 09/10/18 Range/Units 22:05 22:05 00:00 WBC (4.5-11.0) K/mm3 RBC (3.65-5.03) M/mm3 Hgb (11.8-15.2) gm/dl Hct (35.5-45.6) % MCV (84-94) fl MCH (28-32) pg MCHC (32-34) % RDW (13.2-15.2) % Plt Count (140-440) K/mm3 Lymph % (Auto) (13.4-35.0) % [place] % (Auto) (0.0-7.3) % Eos % (Auto) (0.0-4.3) % Baso % (Auto) (0.0-1.8) % Lymph # (1.2-5.4) K/mm3 [place] # (0.0-0.8) K/mm3 Eos # (0.0-0.4) K/mm3 Baso # (0.0-0.1) K/mm3 Seg Neutrophils % (40.0-70.0) % Seg Neutrophils # (1.8-7.7) K/mm3 Sodium (137-145) mmol/L Potassium (3.6-5.0) mmol/L Chloride (98-107) mmol/L Carbon Dioxide (22-30) mmol/L Anion Gap mmol/L BUN (9-20) mg/dL Creatinine (0.8-1.5) mg/dL Estimated GFR ml/min BUN/Creatinine Ratio % Glucose (75-100) mg/dL Calcium (8.4-10.2) mg/dL Magnesium 2.10 (1.7-2.3) mg/dL Total Bilirubin (0.1-1.2) mg/dL AST (5-40) units/L ALT (7-56) units/L Alkaline Phosphatase (35-129) units/L Total Creatine Kinase 765 H (55-170) units/L Total Protein (6.3-8.2) g/dL Albumin (3.9-5) g/dL Albumin/Globulin Ratio % Urine Color Straw (Yellow) Urine Turbidity Clear (Clear) Urine pH 6.0 (5.0-7.0) Ur Specific [place] 1.004 (1.003-1.030) Urine Protein <15 mg/dl (Negative) mg/dL Urine Glucose (UA) Neg (Negative) mg/dL Urine Ketones Neg (Negative) mg/dL Urine Blood Neg (Negative) Urine Nitrite Neg (Negative) Urine Bilirubin Neg (Negative) Urine Urobilinogen < 2.0 (<2.0) mg/dL Ur Leukocyte Esterase Neg (Negative) Urine WBC (Auto) < 1.0 (0.0-6.0) /HPF Urine RBC (Auto) 2.0 (0.0-6.0) /HPF Salicylates (2.8-20.0) mg/dL Urine Opiates Screen Presumptive negative Urine Methadone Screen Presumptive negative Acetaminophen (10.0-30.0) ug/mL Ur Barbiturates Screen Presumptive negative Ur Phencyclidine Scrn Presumptive negative Ur Amphetamines Screen Presumptive negative U Benzodiazepines Scrn Presumptive negative Urine Cocaine Screen Presumptive negative U Marijuana (THC) Screen Presumptive negative Drugs of Abuse Note Disclamer Plasma/Serum Alcohol (0-0.07) % 09/10/18 09/10/18 09/11/18 Range/Units 00:00 00:00 08:36 WBC (4.5-11.0) K/mm3 RBC (3.65-5.03) M/mm3 Hgb (11.8-15.2) gm/dl Hct (35.5-45.6) % MCV (84-94) fl MCH (28-32) pg MCHC (32-34) % RDW (13.2-15.2) % Plt Count (140-440) K/mm3 Lymph % (Auto) (13.4-35.0) % [place] % (Auto) (0.0-7.3) % Eos % (Auto) (0.0-4.3) % Baso % (Auto) (0.0-1.8) % Lymph # (1.2-5.4) K/mm3 [place] # (0.0-0.8) K/mm3 Eos # (0.0-0.4) K/mm3 Baso # (0.0-0.1) K/mm3 Seg Neutrophils % (40.0-70.0) % Seg Neutrophils # (1.8-7.7) K/mm3 Sodium (137-145) mmol/L Potassium (3.6-5.0) mmol/L Chloride (98-107) mmol/L Carbon Dioxide (22-30) mmol/L Anion Gap mmol/L BUN (9-20) mg/dL Creatinine (0.8-1.5) mg/dL Estimated GFR ml/min BUN/Creatinine Ratio % Glucose (75-100) mg/dL Calcium (8.4-10.2) mg/dL Magnesium (1.7-2.3) mg/dL Total Bilirubin (0.1-1.2) mg/dL AST (5-40) units/L ALT (7-56) units/L Alkaline Phosphatase (35-129) units/L Total Creatine Kinase (55-170) units/L Total Protein (6.3-8.2) g/dL Albumin (3.9-5) g/dL Albumin/Globulin Ratio % Urine Color (Yellow) Urine Turbidity (Clear) Urine pH (5.0-7.0) Ur Specific [place] (1.003-1.030) Urine Protein (Negative) mg/dL Urine Glucose (UA) (Negative) mg/dL Urine Ketones (Negative) mg/dL Urine Blood (Negative) Urine Nitrite (Negative) Urine Bilirubin (Negative) Urine Urobilinogen (<2.0) mg/dL Ur Leukocyte Esterase (Negative) Urine WBC (Auto) (0.0-6.0) /HPF Urine RBC (Auto) (0.0-6.0) /HPF Salicylates < 0.3 L (2.8-20.0) mg/dL Urine Opiates Screen Urine Methadone Screen Acetaminophen < 5.0 L (10.0-30.0) ug/mL Ur Barbiturates Screen Ur Phencyclidine Scrn Ur Amphetamines Screen U Benzodiazepines Scrn Urine Cocaine Screen U Marijuana (THC) Screen Drugs of Abuse Note Plasma/Serum Alcohol < 0.01 (0-0.07) %
== END 2018-09-11 10:20 | disposition home or self-care (01) ==
LOC: EEVIPCON 21:27 → ED 21:27
DX: F10.129 Alcohol abuse with intoxication, unspecified (principal); M79.662 Pain in left lower leg; M79.661 Pain in right lower leg; I10 Essential (primary) hypertension; E11.9 Type 2 diabetes mellitus without complications; J45.909 Unspecified asthma, uncomplicated; E78.00 Pure hypercholesterolemia, unspecified; F17.200 Nicotine dependence, unspecified, uncomplicated; Z98.890 Other specified postprocedural states
CPT/HCPCS: 36415; 80053; 80307; 81001; 82550; 83735; 85025; G0480; 80320; Q0162

== ENCOUNTER 2018-09-27 13:16 | Emergency (ER) | payer OTHER ==
[2018-09-27] MEDS ORDERED: ZOFRAN IV ONE (13:51)
[2018-09-27] MEDS ORDERED: NACL 0.9% 1000 ML 1,000 ML IV ONE (13:51)
[2018-09-27] MEDS ORDERED: ATIVAN PO ONE (13:51)
[2018-09-27] MEDS ORDERED: KEPPRA 1,000 MG/NS 0.75% 100ML 1,000 MG/100 ML BAG IV ONE (14:02)
[2018-09-27 15:07] LABS: Basophils # (Auto) 0.1 K/mm3 (0.0-0.1); Basophils % (Auto) 0.6 % (0.0-1.8); Eosinophils % (Auto) 0.2 % (0.0-4.3); Hematocrit 40.8 % (35.5-45.6); Hemoglobin 13.9 gm/dl (11.8-15.2); Lymphocytes # (Auto) 0.6 K/mm3 (1.2-5.4); Lymphocytes % (Auto) 5.7 % (13.4-35.0); Mean Corpuscular HGB Conc 34 % (32-34); Mean Corpuscular Volume 101 fl (84-94); Monocytes # (Auto) 0.8 K/mm3 (0.0-0.8); Monocytes % (Auto) 7.7 % (0.0-7.3); Platelet Count 203 K/mm3 (140-440); Red Blood Count 4.04 M/mm3 (3.65-5.03); Red Cell Distribution Width 16.5 % (13.2-15.2)
[2018-09-27 15:24] LABS: BUN/Creatinine Ratio 14; Blood Urea Nitrogen 13 mg/dL (9-20); Calcium 8.7 mg/dL (8.4-10.2); Hemolysis Index 17
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
[2018-09-27 18:42] VITALS: BP 137/91
== END 2018-09-27 18:42 | disposition home or self-care (01) ==
LOC: ED 13:16
DX: F10.230 Alcohol dependence with withdrawal, uncomplicated (principal); I10 Essential (primary) hypertension; F17.200 Nicotine dependence, unspecified, uncomplicated; E11.9 Type 2 diabetes mellitus without complications; J45.909 Unspecified asthma, uncomplicated; E78.00 Pure hypercholesterolemia, unspecified; Z98.890 Other specified postprocedural states; Z79.899 Other long term (current) drug therapy
CPT/HCPCS: 36415; 80048; 85025; 96374; 96375; 99284; G0480; J1953; J2405; J7030; 80320

== ENCOUNTER 2019-03-12 03:46 | Emergency (ER) | payer SELFPAY ==
[2019-03-12] MEDS ORDERED: LORazepam 2 MG/ML VIAL IV PRN ×2 (04:28)
[2019-03-12] MEDS ORDERED: THIAMINE 100 MG, FOLIC ACID 1 MG, MULTIPLE VITAMIN INJ, ADULT 10 ML in SODIUM CHLORIDE ... IV ONE (04:29)
[2019-03-12] MEDS ORDERED: ONDANSETRON 4 MG/2 ML INJ IV ONE (04:29)
[2019-03-12] MEDS ORDERED: PANTOPRAZOLE 40 MG INJ IV ONE (04:29)
[2019-03-12 04:38] LABS: Hematocrit 43.2 % (35.5-45.6); Hemoglobin 14.7 gm/dl (11.8-15.2); Mean Corpuscular HGB Conc 34 % (32-34); Mean Corpuscular Volume 101 fl (84-94); Platelet Count 203 K/mm3 (140-440); Red Blood Count 4.28 M/mm3 (3.65-5.03)
[2019-03-12 04:49] LABS: BUN/Creatinine Ratio 16; Blood Urea Nitrogen 13 mg/dL (9-20); Calcium 8.4 mg/dL (8.4-10.2); Hemolysis Index 6
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
[2019-03-12 05:52] LABS: Alanine Aminotransferase 67 units/L (7-56); Albumin 3.9 g/dL (3.9-5)
[2019-03-12 06:00] LABS: Bilirubin,Direct < 0.2 mg/dL (0-0.2)
[2019-03-12] MEDS: LORazepam 2 MG/ML VIAL IV PRN ×3 (06:25→12:24)
[2019-03-12] MEDS ORDERED: METOCLOPRAMIDE 10 MG/2 ML INJ IV ONE (14:54)
[2019-03-12 14:55] VITALS: BP 137/100
== END 2019-03-12 17:44 | disposition left against medical advice (07) ==
LOC: ED 03:46
DX: F10.10 Alcohol abuse, uncomplicated (principal); I10 Essential (primary) hypertension; E11.9 Type 2 diabetes mellitus without complications; J45.909 Unspecified asthma, uncomplicated; F17.200 Nicotine dependence, unspecified, uncomplicated; Z98.890 Other specified postprocedural states; Z79.899 Other long term (current) drug therapy
CPT/HCPCS: 36415; 80048; 80076; 83690; 85027; 96365; 96366; 96375; 99284; J2060; J2765; J3411; J7030; 80320; G0480

== ENCOUNTER 2019-05-07 06:21 | Emergency (ER) | payer SELFPAY ==
[2019-05-07 06:37] VITALS: BP 134/90
[2019-05-07] MEDS ORDERED: LORazepam 2 MG/ML VIAL IV ONE (07:47)
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
[2019-05-07] MEDS ORDERED: THIAMINE 100 MG, FOLIC ACID 1 MG, MULTIPLE VITAMIN INJ, ADULT 10 ML in SODIUM CHLORIDE ... IV ONE (08:00)
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
[2019-05-07 09:04] LABS: Basophils % (Auto) 0.9 % (0.0-1.8); Eosinophils # (Auto) 0.1 K/mm3 (0.0-0.4); Eosinophils % (Auto) 1.2 % (0.0-4.3); Hematocrit 42.8 % (35.5-45.6); Hemoglobin 14.4 gm/dl (11.8-15.2); Lymphocytes # (Auto) 0.6 K/mm3 (1.2-5.4); Lymphocytes % (Auto) 11.1 % (13.4-35.0); Mean Corpuscular HGB Conc 34 % (32-34); Mean Corpuscular Volume 101 fl (84-94); Monocytes # (Auto) 0.6 K/mm3 (0.0-0.8); Platelet Count 282 K/mm3 (140-440); Red Blood Count 4.22 M/mm3 (3.65-5.03); Red Cell Distribution Width 15.3 % (13.2-15.2)
[2019-05-07 09:22] LABS: BUN/Creatinine Ratio 11; Blood Urea Nitrogen 9 mg/dL (9-20); Calcium 9.3 mg/dL (8.4-10.2); Hemolysis Index 14
[2019-05-07 09:23] LABS: INR 0.85 (0.87-1.13)
[2019-05-07 09:24] LABS: Partial Thromboplastin Time 26.4 Sec. (24.2-36.6)
[2019-05-07 09:25] LABS: Creatine Kinase MB 7.3 ng/mL (0.0-4.0)
[2019-05-07 09:28] LABS: Alanine Aminotransferase 48 units/L (7-56); Albumin 4.3 g/dL (3.9-5)
[2019-05-07 09:37] LABS: Bilirubin,Direct < 0.2 mg/dL (0-0.2)
[2019-05-07] MEDS ORDERED: ONDANSETRON 4 MG/2 ML INJ ONE (11:19)
[2019-05-07] MEDS ORDERED: ONDANSETRON 4 MG/2 ML INJ IV ONE (11:19)
== END 2019-05-07 13:03 | disposition home or self-care (01) ==
LOC: ED 06:21
DX: S02.2XXA Fracture of nasal bones, initial encounter for closed fracture (principal); F10.239 Alcohol dependence with withdrawal, unspecified; F19.230 Other psychoactive substance dependence with withdrawal, uncomplicated; I10 Essential (primary) hypertension; E11.9 Type 2 diabetes mellitus without complications; J45.909 Unspecified asthma, uncomplicated; E78.5 Hyperlipidemia, unspecified; F17.200 Nicotine dependence, unspecified, uncomplicated; X58.XXXA Exposure to other specified factors, initial encounter; Y93.89 Activity, other specified; Y92.89 Other specified places as the place of occurrence of the external cause; Y99.8 Other external cause status
CPT/HCPCS: 36415; 70450; 70486; 72125; 80048; 80076; 82550; 82553; 83735; 85025; 85610; 85730; 96365; 96366; 96375; 99284; J2060; J2405; J3411; J7030; 80320; G0480

== ENCOUNTER 2019-07-24 15:47 | Emergency (ER) | payer SELFPAY ==
[2019-07-24] MEDS ORDERED: SODIUM CHLORIDE 0.9% 1000 ML 1,000 ML IV ONE (16:32)
[2019-07-24] MEDS ORDERED: diazePAM 10 MG/2 ML SYRINGE IV ONE (16:33)
[2019-07-24] MEDS ORDERED: SODIUM CHLORIDE 0.9% IRR 500 ML BOTTLE IR ONE (16:33)
[2019-07-24] MEDS ORDERED: BACITRACIN ZINC OINT 28.4 GM TP STA (16:33)
[2019-07-24] MEDS ORDERED: DEXTROSE 50% IN WATER (25GM) 50 ML SYRINGE IV PRN (16:33)
[2019-07-24] MEDS ORDERED: DEXTROSE 50% IN WATER (25GM) 50 ML VIAL IV PRN (16:33)
[2019-07-24] MEDS ORDERED: LORazepam 2 MG/ML VIAL IV PRN ×2 (16:33)
[2019-07-24] MEDS ORDERED: TETANUS,DIPH,PERTUSS(ACELL) VACCINE 0.5 ML SYRINGE IM ONE (16:33)
[2019-07-24] MEDS ORDERED: levETIRAcetam 1000 MG/NS 0.75% 1,000 MG/100 ML BAG IV ONE (16:35)
[2019-07-24] MEDS ORDERED: ONDANSETRON 4 MG ODT TAB PO PRN (16:35)
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
[2019-07-24] MEDS ORDERED: RABIES VACCINE, HUMAN DIPLOID/PF 2.5 UNIT/ML VIAL IM ONE (16:41)
[2019-07-24 16:52] LABS: Bilirubin,Urine NEG (Negative); Blood,Urine SM (Negative); Color,Urine Straw (Yellow); Mucus,Urine FEW /HPF; Urobilinogen,Urine < 2.0 mg/dL (<2.0)
[2019-07-24] MEDS ORDERED: LORazepam 2 MG/ML VIAL IM PRN (16:54)
[2019-07-24] MEDS ORDERED: HALOPERIDOL LACTATE 5 MG/1 ML INJ IM PRN (16:54)
[2019-07-24 16:59] LABS: Amphetamine Screen,Urine PRESUMPTIVE NEGATIVE; Benzodiazepines Screen,Urine PRESUMPTIVE NEGATIVE; Cannabinoid Screen,Urine PRESUMPTIVE NEGATIVE; Cocaine Screen,Urine PRESUMPTIVE NEGATIVE; Methadone Screen,Urine PRESUMPTIVE NEGATIVE; Opiate Screen,Urine PRESUMPTIVE NEGATIVE
[2019-07-24] MEDS: LORazepam 2 MG/ML VIAL IV PRN ×2 (17:00→20:11)
[2019-07-24] MEDS ORDERED: D5W/0.45% NACL 1,000 ML IV SCH (17:00)
[2019-07-24] MEDS ORDERED: RABIES IMMUNE GLOBULIN P/F 300 UNIT/ML INJ 5 ML IM ONE (17:04)
[2019-07-24 17:06] LABS: BUN/Creatinine Ratio 13; Blood Urea Nitrogen 9 mg/dL (9-20); Calcium 8.9 mg/dL (8.4-10.2); Hemolysis Index 8
[2019-07-24 17:07] LABS: Hematocrit 39.3 % (35.5-45.6); Hemoglobin 13.5 gm/dl (11.8-15.2); Mean Corpuscular HGB Conc 34 % (32-34); Mean Corpuscular Volume 102 fl (84-94); Platelet Count 169 K/mm3 (140-440); Red Blood Count 3.85 M/mm3 (3.65-5.03); Red Cell Distribution Width 15.3 % (13.2-15.2)
--- NOTE | 2019-07-24 17:11 | XRay Report ---
CHEST 1 VIEW INDICATION / CLINICAL INFORMATION: History of seizure, alcohol intoxication, altered. COMPARISON: 11/05/2016 FINDINGS: SUPPORT DEVICES: None. HEART / MEDIASTINUM: No significant abnormality. LUNGS / PLEURA: No significant pulmonary or pleural abnormality. No pneumothorax. ADDITIONAL FINDINGS: No significant additional findings. IMPRESSION: 1. No acute findings. Signer Name: Contreras Latham MD Signed: 07/24/2019 5:07 PM Workstation Name: [id number]
--- NOTE | 2019-07-24 17:13 | XRay Report ---
BILATERAL HANDS, 6 VIEWS 07/24/2019 INDICATION / CLINICAL INFORMATION: Bilateral hand wound. COMPARISON: None available. FINDINGS: No skeletal abnormality. No radiopaque soft tissue foreign bodies. Signer Name: Contreras Latham MD Signed: 07/24/2019 5:09 PM Workstation Name: [id number]
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
[2019-07-24] MEDS ORDERED: levETIRAcetam 500 MG TAB PO SCH (22:00)
[2019-07-25 01:28] VITALS: BP 123/78
[2019-07-25] MEDS ORDERED: amLODIPine 5 MG TAB PO SCH (10:00)
[2019-07-25] MEDS ORDERED: MULTIVITAMINS ,THERAPEUTIC TAB PO SCH (10:00)
== END 2019-07-25 01:30 | disposition home or self-care (01) ==
LOC: ED 15:47
DX: S61.239A Puncture wound without foreign body of unspecified finger without damage to nail, initial encounter (principal); F10.129 Alcohol abuse with intoxication, unspecified; I10 Essential (primary) hypertension; E11.9 Type 2 diabetes mellitus without complications; E78.00 Pure hypercholesterolemia, unspecified; F17.200 Nicotine dependence, unspecified, uncomplicated; Z98.890 Other specified postprocedural states; Z79.899 Other long term (current) drug therapy; W54.0XXA Bitten by dog, initial encounter; Y93.89 Activity, other specified; Y92.89 Other specified places as the place of occurrence of the external cause; Y99.8 Other external cause status
CPT/HCPCS: 36415; 70450; 71045; 72125; 73130; 80048; 80307; 81001; 82550; 82962; 83735; 85027; 90375; 90471; 90472; 90675; 90715; 93005; 96365; 96372; 96375; 99285; J1630; J1953; J2060; J3360; J7030; 80320; G0480; Q0162

== ENCOUNTER 2020-07-17 10:50 | Inpatient (IN) | payer OTHER ==
[2020-07-17] MEDS ORDERED: LORazepam 2 MG/ML VIAL IV PRN ×3 (11:12)
[2020-07-17] MEDS ORDERED: chlordiazePOXIDE 25 MG CAP PO PRN (11:12)
[2020-07-17] MEDS ORDERED: dexAMETHasone 4 MG/ML VIAL IV ONE (11:14)
[2020-07-17] MEDS ORDERED: levETIRAcetam 1000 MG/NS 0.75% 1,000 MG/100 ML BAG IV ONE ×2 (11:15→22:40)
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
[2020-07-17] MEDS ORDERED: THIAMINE 100 MG, FOLIC ACID 1 MG, MULTIPLE VITAMIN INJ, ADULT 10 ML in SODIUM CHLORIDE ... IV ONE (12:00)
[2020-07-17 12:23] LABS: Basophils % (Auto) 0.3 % (0.0-1.8); Hematocrit 34.7 % (35.5-45.6); Hemoglobin 11.9 gm/dl (11.8-15.2); Lymphocytes # (Auto) 0.6 K/mm3 (1.2-5.4); Lymphocytes % (Auto) 9.5 % (13.4-35.0); Mean Corpuscular HGB Conc 34 % (32-34); Mean Corpuscular Volume 89 fl (84-94); Monocytes # (Auto) 0.7 K/mm3 (0.0-0.8); Monocytes % (Auto) 11.5 % (0.0-7.3); Platelet Count 227 K/mm3 (140-440); Red Blood Count 3.89 M/mm3 (3.65-5.03); Red Cell Distribution Width 13.7 % (13.2-15.2)
[2020-07-17 12:33] LABS: INR 0.98 (0.87-1.13)
[2020-07-17 12:36] LABS: Partial Thromboplastin Time 35.3 Sec. (24.2-36.6)
--- NOTE | 2020-07-17 12:49 | XRay Report ---
XR chest 1V ap INDICATION / CLINICAL INFORMATION: Dyspnea COMPARISON: 10/23/2019 FINDINGS: SUPPORT DEVICES: None. HEART / MEDIASTINUM: No significant abnormality. LUNGS / PLEURA: Peribronchial no other septal thickening. Costophrenic sulci are sharp. No pneumothor ax. ADDITIONAL FINDINGS: No significant additional findings. IMPRESSION: 1. Findings most consistent with interstitial edema. Signer Name: Tristan Concepcion MD Signed: 07/17/2020 12:45 PM Workstation Name: [employer]
[2020-07-17 13:06] LABS: Alanine Aminotransferase 21 units/L (7-56); Albumin 3.6 g/dL (3.9-5); BUN/Creatinine Ratio 11; Blood Urea Nitrogen 10 mg/dL (9-20); Hemolysis Index 5
--- NOTE | 2020-07-17 13:07 | History and Physical Report ---
History of Present Illness Chief complaint: I am having problems breathing History of present illness: 50 YO Male with HTN, HLD, ETOH Dependence, Nicotine Dependence, Seizure Disorder, DM, Mild Intermittent Asthma presents to ED for evaluation. Patient reports "I am having problems breathing". Patient states that he had experienced fatigue, malaise, generalized weakness, shortness of breath, decreased exercise tolerance over the past 1 week with persistently worsening symptoms over the same timeframe. Patient is currently in the custody of law enforcement and was transported to [facility] for further care and evaluation of the aforementioned symptoms. The patient was seen and evaluated in the emergency department. All lab and imaging studies reviewed. Patient found to have a pulse oximetry of 86% on room air which is consistent with acute hypoxemic respiratory failure. Patient underwent chest x-ray which revealed bilateral pneumonia. Patient found to have sepsis. Patient admitted to medical floor and initiated on sepsis protocol as well as pneumonia protocol, as well as coronavirus protocol. Patient knowledges subjective fever but denies chills, chest pain, palpitation, skin rash, recent ill contacts. Patient underwent coronavirus test and was found to be positive. Prior admission on 11/11/2019 reviewed. All medication listed at time of admission has been reconciled. Past History Past Medical History: hypertension, hyperlipidemia, other (See HPI) Past Surgical History: Other (Leg surgery) Social history: , smoking, alcohol abuse Family history: diabetes, hypertension Medications and Allergies Allergies Allergy/AdvReac Type Severity Reaction Status Date / Time No Known Allergies Allergy Verified 07/14/18 11:01 Home Medications Medication Instructions Recorded Confirmed Last Taken Type FLUoxetine [PROzac] 20 mg PO QDAY #15 capsule 08/18/18 11/10/19 Unknown Rx diazePAM TAB [Valium] 5 mg PO TID PRN #10 tablet 09/27/18 11/10/19 Unknown Rx Lisa Root [Lisa] 250 mg PO QID PRN #30 capsule 03/12/19 11/10/19 Unknown Rx Ondansetron [Zofran Odt] 4 mg PO Q8HR PRN #20 tab.rapdis 03/12/19 11/10/19 Unknown Rx Multivitamin with Folic Acid [[facility]vs 400 mcg PO QDAY #30 tablet 07/24/19 11/10/19 Unknown Rx One Daily Essential Tablet] amLODIPine 5 mg PO DAILY #30 07/24/19 11/10/19 Unknown Rx chlordiazePOXIDE [Librium] 25 mg PO Q6H PRN #30 capsule 07/24/19 11/10/19 U nknown Rx levETIRAcetam [Keppra TAB] 500 mg PO BID #30 tablet 07/24/19 11/10/19 Unknown Rx levETIRAcetam [Keppra TAB] 500 mg PO BID #60 tablet 09/23/19 11/10/19 Unknown Rx Amoxicillin/Potassium Clav 1 each PO BID #14 tablet 11/12/19 Unknown Rx [Augmentin 875-125 Tablet] Rabies Vacc, Human Diploid/Pf 2.5 unit IM ONCE #3 vial 11/12/19 Unknown Rx [Imovax Rabies Vaccine Vial] Active Meds: Active Medications Chlordiazepoxide HCl (Chlordiazepoxide 25 Mg Cap) 50 mg PO Q1HR PRN PRN Reason: CIWA-Ar 8-15 Thiamine HCl 100 mg/ Folic Acid 1 mg/ Multivitamins/Minerals 10 ml/ Sodium Chloride 1,011.2 mls @ 250 mls/hr IV ONCE ONE Stop: 07/17/20 16:02 Lorazepam (Lorazepam 2 Mg/Ml Vial) 2 mg IV Q1HR PRN PRN Reason: CIWA-Ar 8-15 Lorazepam (Lorazepam 2 Mg/Ml Vial) 4 mg IV Q1HR PRN PRN Reason: CIWA-Ar 16-25 Lorazepam (Lorazepam 2 Mg/Ml Vial) 4 mg IV Q15MIN PRN PRN Reason: CIWA-Ar >25 Review of Systems Constitutional: fever, fatigue, weakness, malaise, no weight loss, no weight gain Ears, nose, mouth and throat: no ear pain, no ear discharge, no tinnitis, no decreased hearing, no nasal congestion, no nasal discharge Cardiovascular: no chest pain, no orthopnea, no palpitations, no edema Respiratory: cough, shortness of breath Gastrointestinal: no abdominal pain, no nausea, no vomiting, no diarrhea, no change in bowel habits Genitourinary Male: no hematuria, no flank pain, no discharge, no urinary frequency, no urinary hesitancy, no genital pain Rectal: no pain, no incontinence, no bleeding Musculoskeletal: no neck stiffness, no neck pain, no arm numbness/tingling, no low back pain, no shooting leg pain Integumentary: no rash, no pruritis, no redness, no sores, no wounds, no boils Neurological: no head injury, no transient paralysis, no weakness, no numbness, no tingling Psychiatric: no anxiety, no change in sleep habits, no sleep disturbances, no hypersomnia, no change in appetite, no suicidal ideation, no disorientation Endocrine: no cold intolerance, no heat intolerance, no polyphagia, no excessive thirst, no polydipsia, no polyuria, no nocturia, no excessive sweating Hematologic/Lymphatic: no easy bruising, no easy bleeding Allergic/Immunologic: no allergic rhinitis, no wheezing Exam - Constitutional Vitals: Temp Pulse Resp BP Pulse Ox 100.8 F H 105 H 28 H 112/77 93 07/17/20 11:00 07/17/20 11:00 07/17/20 12:40 07/17/20 11:00 07/17/20 12:40 General appearance: Present: mild distress - EENT Eyes: Present: PERRL ENT: hearing intact, clear oral mucosa - Neck Neck: Present: supple, normal ROM - Respiratory Respiratory effort: normal Respiratory: bilateral: CTA - Cardiovascular Heart Sounds: Present: S1 & S2. Absent: rub, click - Extremities Extremities: pulses symmetrical, No edema Peripheral Pulses: within normal limits - Abdominal General gastrointestinal: Present: soft, non-tender, non-distended, normal bowel sounds Male genitourinary: Present: normal - Integumentary Integumentary: Present: clear, warm, dry - Musculoskeletal Musculoskeletal: gait normal, strength equal bilaterally - Psychiatric Psychiatric: appropriate mood/affect, intact judgment & insight - Neurologic Neurologic: CNII-XII intact, moves all extremities HEART Score - HEART Score Troponin: Troponin T < 0.010 ng/mL (0.00-0.029) 07/17/20 11:41 Results - Labs CBC & Chem 7: 07/17/20 11:41 07/17/20 11:41 Labs: Abnormal lab results 07/17/20 07/17/20 Range/Units 11:41 11:41 Hct 34.7 L (35.5-45.6) % Lymph % (Auto) 9.5 L (13.4-35.0) % [place] % (Auto) 11.5 H (0.0-7.3) % Lymph # (Auto) 0.6 L (1.2-5.4) K/mm3 Seg Neutrophils % 78.7 H (40.0-70.0) % D-Dimer 1683.35 H (0-234) ng/mlDDU Assessment and Plan - Patient Problems (1) Sepsis Current Visit: Yes Status: Acute Plan to address problem: Sepsis protocol: Chest x-ray, CBC, CMP, urinalysis, blood culture, IV antibiotic therapy, monitor urine output every shift, monitor fluid balance, serial lactic acid level, maintain mean arterial pressure greater than or equal to 65, encourage free water intake. Hold IV fluid resuscitation due to suspected coronavirus infection in an effort to avoid flash pulmonary edema and worsening respiratory function. (2) Acute hypoxemic respiratory failure Current Visit: Yes Status: Acute Plan to address problem: Supplemental oxygen, pulse oximetry, chest x-ray, nebulizer therapy, prone positioning while in bed, early ambulation. (3) Nicotine dependence Current Visit: Yes Status: Acute Qualifiers: Nicotine product type: cigarettes Substance use status: in withdrawal Qualified Code(s): F17.213 - Nicotine dependence, cigarettes, with withdrawal Plan to address problem: Smoking cessation counseling, supportive care, behavior change counseling, +15 minutes. (4) Alcohol dependence Current Visit: Yes Status: Acute Plan to address problem: Thiamine, folic acid, multivitamin therapy, patient does not exhibit signs or symptoms of withdrawal. Patient last ingestion of alcohol was over 10 days ago. Behavior change counseling, +15 minutes. (5) Pneumonia Current Visit: Yes Status: Acute Plan to address problem: Pneumonia protocol: Chest x-ray, CBC, CMP, IV antibiotic therapy. Supplemental oxygen, pulse oximetry, nebulizer therapy, blood culture. (6) Suspected 2019 novel coronavirus infection Current Visit: Yes Status: Acute Plan to address problem: Coronavirus protocol: Contact precautions, aspiration precautions, supplemental oxygen, pulse oximetry, nebulizer therapy, IV steroid therapy, IV antibiotic therapy, vitamin C therapy, vitamin D therapy, zinc therapy, prophylactic anticoagulation (7) Hypertension Current Visit: Yes Status: Acute Qualifiers: Hypertension type: essential hypertension Qualified Code(s): I10 - Essential (primary) hypertension Plan to address problem: Monitor blood pressure every shift, continue medical management. (8) Diabetes Current Visit: Yes Status: Acute Plan to address problem: Consistent carbohydrate diet, insulin protocol, hypoglycemia protocol, Accu- Chek, (9) Hyperlipidemia Current Visit: Yes Status: Acute Qualifiers: Hyperlipidemia type: mixed hyperlipidemia Qualified Code(s): E78.2 - Mixed hyperlipidemia Plan to address problem: Low-cholesterol diet, supportive care. Continue medical management (10) Seizure disorder Current Visit: Yes Status: Acute Plan to address problem: Continue antiepileptic therapy. Seizure precaution. Supportive care. (11) DVT prophylaxis Current Visit: Yes Status: Acute Plan to address problem: SCD to bilateral lower extremities while in bed, continue prophylactic anticoagulation
[2020-07-17] MEDS ORDERED: ONDANSETRON 4 MG/2 ML INJ IV PRN (13:10)
[2020-07-17] MEDS ORDERED: SODIUM CHLORIDE 0.9% 1000 ML IV SOLN IV ONE (13:10)
[2020-07-17] MEDS ORDERED: ALBUTEROL 2.5 MG/3 ML NEBU IH PRN (13:10)
[2020-07-17] MEDS ORDERED: ACETAMINOPHEN 325 MG TAB PO PRN ×2 (13:10)
[2020-07-17] MEDS ORDERED: ACETAMINOPHEN 325 MG TAB PO ONE (13:14)
[2020-07-17] MEDS ORDERED: MULTIVITAMINS ,THERAPEUTIC TAB PO ONE (13:14)
[2020-07-17] MEDS ORDERED: THIAMINE 100 MG TAB PO ONE (13:14)
[2020-07-17] MEDS ORDERED: cefTRIAXone/NS 2 GM/100 ML 2 GM/100 ML BAG IV SCH (14:00)
[2020-07-17] MEDS ORDERED: AZITHROMYCIN/NS 500 MG/250 ML 500 MG/250 ML BAG IV SCH (14:00)
--- NOTE | 2020-07-17 14:39 | Consultation ---
History of Present Illness - Reason for Consult Consult date: 07/17/20 - History of Present Illness 50-year-old man past medical history hypertension, hyperlipidemia, alcohol dependence, seizures, diabetes, asthma presented to the hospital with shortness of breath. He also notes associated cough, chest wall tightness, fatigue. He tested positive for Covid as an outpatient. Otherwise no acute issues. Required oxygen on presentation. Febrile to 100.8 with a white count 6.4. Normal renal function, normal procalcitonin. Blood cultures no growth so far. Currently on ceftriaxone and azithromycin. On 5 L nasal cannula. Imaging personally reviewed: Chest x-ray: Possible interstitial edema. Review of systems: Deferred to reduce to the risk of transmission of COVID-19 Past History Past Medical History: diabetes, hypertension, hyperlipidemia Past Surgical History: No surgical history Social history: no significant social history Family history: no significant family history Medications and Allergies Allergies Allergy/AdvReac Type Severity Reaction Status Date / Time No Known Allergies Allergy Verified 07/14/18 11:01 Home Medications Medication Instructions Recorded Confirmed Last Taken Type FLUoxetine [PROzac] 20 mg PO QDAY #15 capsule 08/18/18 11/10/19 Unknown Rx diazePAM TAB [Valium] 5 mg PO TID PRN #10 tablet 09/27/18 11/10/19 Unknown Rx Lisa Root [Lisa] 250 mg PO QID PRN #30 capsule 03/12/19 11/10/19 Unknown Rx Ondansetron [Zofran Odt] 4 mg PO Q8HR PRN #20 tab.rapdis 03/12/19 11/10/19 Unknown Rx Multivitamin with Folic Acid [[facility]vs 400 mcg PO QDAY #30 tablet 07/24/19 11/10/19 Unknown Rx One Daily Essential Tablet] amLODIPine 5 mg PO DAILY #30 07/24/19 11/10/19 Unknown Rx chlordiazePOXIDE [Librium] 25 mg PO Q6H PRN #30 capsule 07/24/19 11/10/19 Unknown Rx levETIRAcetam [Keppra TAB] 500 mg PO BID #30 tablet 07/24/19 11/10/19 Unknown Rx levETIRAcetam [Keppra TAB] 500 mg PO BID #60 tablet 09/23/19 11/10/19 Unknown Rx Amoxicillin/Potassium Clav 1 each PO BID #14 tablet 11/12/19 Unknown Rx [Augmentin 875-870 Tablet] Rabies Vacc, Human Diploid/Pf 2.5 unit IM ONCE #3 vial 11/12/19 Unknown Rx [Imovax Rabies Vaccine Vial] Active Meds: Active Medications Acetaminophen (Acetaminophen 325 Mg Tab) 650 mg PO Q4H PRN PRN Reason: Pain MILD(1-3)/Fever >100.5/RUCKER Albuterol (Albuterol 2.5 Mg/3 Ml Nebu) 2.5 mg IH Q4HRT PRN PRN Reason: Shortness Of Breath Ascorbic Acid (Ascorbic Acid 500 Mg Tab) 500 mg PO BID NICOL Chlordiazepoxide HCl (Chlordiazepoxide 25 Mg Cap) 50 mg PO Q1HR PRN PRN Reason: CIWA-Ar 8-15 Cholecalciferol (Cholecalciferol (Vit D3) 1000 Unit (25 Mcg) Tab) 1,000 unit PO QDAY NICOL Famotidine (Famotidine 10 Mg Tab) 10 mg PO BID NICOL Folic Acid (Folic Acid 1 Mg Tab) 1 mg PO QDAY NICOL Heparin Sodium (Porcine) (Heparin 5,000 Unit/1 Ml Vial) 5,000 unit SUB-Q Q12HR NICOL Hydromorphone HCl (Hydromorphone 1 Mg/1 Ml Inj) 0.25 mg IV Q4H PRN PRN Reason: Pain, Moderate (4-6) Thiamine HCl 100 mg/ Folic Acid 1 mg/ Multivitamins/Minerals 10 ml/ Sodium Chloride 1,011.2 mls @ 250 mls/hr IV ONCE ONE Stop: 07/17/20 16:02 Ceftriaxone Sodium (Rocephin/Ns 2 Gm/100 Ml) 2 gm in 100 mls @ 200 mls/hr IV Q24H NICOL; Protocol Azithromycin (Zithromax/Ns) 500 mg in 250 mls @ 250 mls/hr IV Q24H NICOL; Protocol Lorazepam (Lorazepam 2 Mg/Ml Vial) 2 mg IV Q1HR PRN PRN Reason: CIWA-Ar 8-15 Lorazepam (Lorazepam 2 Mg/Ml Vial) 4 mg IV Q1HR PRN PRN Reason: CIWA-Ar 16-25 Lorazepam (Lorazepam 2 Mg/Ml Vial) 4 mg IV Q15MIN PRN PRN Reason: CIWA-Ar >25 Methylprednisolone Sodium Succinate (Methylprednisolone Sod Succinate 40 Mg/1 Ml Inj) 40 mg IV Q8H NICOL Ondansetron HCl (Ondansetron 4 Mg/2 Ml Inj) 4 mg IV Q8H PRN PRN Reason: Nausea And Vomiting Sodium Chloride (Sodium Chloride 0.9% 10 Ml Flush Syringe) 10 ml IV BID NICOL Sodium Chloride (Sodium Chloride 0.9% 10 Ml Flush Syringe) 10 ml IV PRN PRN PRN Reason: LINE FLUSH Zinc Sulfate (Zinc Sulfate 220 Mg Cap) 220 mg PO BID NICOL Physical Examination - Physical Exam Narrative exam: Physical exam deferred to reduce risk of transmission of COVID-19. Please refer to primary team's note. - Constitutional Vitals: Vital Signs Temp Pulse Resp BP Pulse Ox 100.8 F H 105 H 28 H 112/77 93 07/17/20 11:00 07/17/20 11:00 07/17/20 12:40 07/17/20 11:00 07/17/20 12:40 Temperature -Last 24 Hours Temperature 100.8 F Temperature 100.8 F Results - Labs CBC & Chem 7: 07/17/20 11:41 07/17/20 11:41 Labs: Abnormal lab results 07/17/20 07/17/20 07/17/20 Range/Units 11:41 11:41 11:41 Hct 34.7 L (35.5-45.6) % Lymph % (Auto) 9.5 L (13.4-35.0) % [place] % (Auto) 11.5 H (0.0-7.3) % Lymph # (Auto) 0.6 L (1.2-5.4) K/mm3 Seg Neutrophils % 78.7 H (40.0-70.0) % D-Dimer (0-234) ng/mlDDU Sodium 134 L (137-145) mmol/L Carbon Dioxide 19 L (22-30) mmol/L Ferritin (30.0-300.0) ng/mL Lactate Dehydrogenase (91-180) units/L C-Reactive Protein (0.00-1.30) mg/dL Albumin 3.6 L (3.9-5) g/dL Salicylates < 0.3 L (2.8-20.0) mg/dL Acetaminophen (10.0-30.0) ug/mL Valproic Acid < 2.8 L (50-100) ug/mL 07/17/20 07/17/20 07/17/20 Range/Units 11:41 11:41 11:41 Hct (35.5-45.6) % Lymph % (Auto) (13.4-35.0) % [place] % (Auto) (0.0-7.3) % Lymph # (Auto) (1.2-5.4) K/mm3 Seg Neutrophils % (40.0-70.0) % D-Dimer 1683.35 H (0-234) ng/mlDDU Sodium (137-145) mmol/L Carbon Dioxide (22-30) mmol/L Ferritin 694.9 H (30.0-300.0) ng/mL Lactate Dehydrogenase 391 H (91-180) units/L C-Reactive Protein 19.10 H (0.00-1.30) mg/dL Albumin (3.9-5) g/dL Salicylates (2.8-20.0) mg/dL Acetaminophen (10.0-30.0) ug/mL Valproic Acid (50-100) ug/mL 07/17/20 Range/Units 11:41 Hct (35.5-45.6) % Lymph % (Auto) (13.4-35.0) % [place] % (Auto) (0.0-7.3) % Lymph # (Auto) (1.2-5.4) K/mm3 Seg Neutrophils % (40.0-70.0) % D-Dimer (0-234) ng/mlDDU Sodium (137-145) mmol/L Carbon Dioxide (22-30) mmol/L Ferritin (30.0-300.0) ng/mL Lactate Dehydrogenase (91-180) units/L C-Reactive Protein (0.00-1.30) mg/dL Albumin (3.9-5) g/dL Salicylates (2.8-20.0) mg/dL Acetaminophen 5.0 L (10.0-30.0) ug/mL Valproic Acid (50-100) ug/mL Assessment and Plan Cultures: Blood culture no growth so far Covid PCR: Positive as outpatient, pending as inpatient. A/P: 50-year-old man past medical history hypertension, hyperlipidemia, alcohol dependence, seizures, diabetes, asthma admitted with COVID-19. #COVID-19 pneumonia: Patient presented with a week of symptoms, chest x-ray with diffuse bilateral infiltrates. Inflammatory markers elevated. #Acute hypoxemic respiratory failure: Likely secondary to COVID-19 infection. Currently on 5L NC #Diabetes: tight glycemic control for best outcomes. #Asthma Recs: -Dexamethasone 6 mg IV/PO daily for 10 days -Remdesivir 200 mg IV q day x 1 followed by 100 mg IV q day x 4 days -Obtain q48-72h inflammatory markers - ferritin, Ddimer, CRP, LDH -Stopped empiric antibiotics given normal procalcitonin -Anticoagulation per hospital protocol -Proning as able Thank you for the consult, we will continue to follow. MD [facility] ([facility] O: [phone] F: [phone]
[2020-07-17] MEDS ORDERED: REMDESIVIR 100 MG VIAL IV ONE (16:00)
[2020-07-17] MEDS ORDERED: REMDESIVIR 200 MG in SODIUM CHLORIDE 0.9% 250ML 250 ML IV ONE (16:00)
[2020-07-17] MEDS: FOLIC ACID 1 MG TAB PO SCH (17:55)
[2020-07-17] MEDS: SODIUM CHLORIDE 0.9% 50 ML IVPB IV SCH (17:56)
[2020-07-17] MEDS: methylPREDNISolone Sod Succinate 40 MG/1 ML INJ IV SCH ×2 (18:45→21:40)
[2020-07-17] MEDS: HEPARIN 5,000 UNIT/1 ML VIAL SUB-Q SCH (21:40)
[2020-07-17] MEDS: ASCORBIC ACID 500 MG TAB PO SCH (21:41)
[2020-07-17] MEDS: FAMOTIDINE 10 MG TAB PO SCH (21:41)
[2020-07-17] MEDS: ZINC SULFATE 220 MG CAP PO SCH (21:41)
[2020-07-18] MEDS: guaiFENesin DM 200/20 MG ORAL LIQD 10 ML PO PRN ×4 (01:20→21:58)
[2020-07-18 03:58] LABS: Basophils % (Auto) 0.1 % (0.0-1.8); Hemoglobin 11.8 gm/dl (11.8-15.2); Lymphocytes # (Auto) 0.3 K/mm3 (1.2-5.4); Lymphocytes % (Auto) 7.9 % (13.4-35.0); Mean Corpuscular HGB Conc 36 % (32-34); Mean Corpuscular Volume 88 fl (84-94); Monocytes # (Auto) 0.3 K/mm3 (0.0-0.8); Monocytes % (Auto) 6.4 % (0.0-7.3); Platelet Count 249 K/mm3 (140-440); Red Blood Count 3.77 M/mm3 (3.65-5.03); Red Cell Distribution Width 13.7 % (13.2-15.2)
[2020-07-18 04:24] LABS: Alanine Aminotransferase 31 units/L (7-56); Albumin 3.8 g/dL (3.9-5); BUN/Creatinine Ratio 18; Blood Urea Nitrogen 14 mg/dL (9-20); Calcium 8.8 mg/dL (8.4-10.2); Hemolysis Index 5
[2020-07-18] MEDS ORDERED: FUROSEMIDE 40 MG/4 ML INJ IV NR (08:30)
[2020-07-18] MEDS: FAMOTIDINE 10 MG TAB PO SCH ×2 (09:06→21:58)
[2020-07-18] MEDS: CHOLECALCIFEROL (VIT D3) 1000 UNIT (25 mcg) TAB PO SCH (09:06)
[2020-07-18] MEDS: ASCORBIC ACID 500 MG TAB PO SCH ×2 (09:06→21:59)
[2020-07-18] MEDS: HEPARIN 5,000 UNIT/1 ML VIAL SUB-Q SCH ×2 (09:06→21:58)
[2020-07-18] MEDS: dexAMETHasone 4 MG/ML VIAL IV SCH (09:06)
[2020-07-18] MEDS: ZINC SULFATE 220 MG CAP PO SCH ×2 (09:06→21:58)
[2020-07-18] MEDS: FOLIC ACID 1 MG TAB PO SCH (09:06)
--- NOTE | 2020-07-18 09:09 | Consultation ---
History of Present Illness Consult date: 07/18/20 Requesting physician: CHERI CORTES Reason for consult: hypoxemia, other (COVID 19) History of present illness: 50 y/o male admitted via ED for acute respiratory failure. History is obtained from chart, but based on information, patient has a known positive test that was done at a correctional facility as an outpatient. It is not documented if steroids were started then or not, but patient started having chest tightness and shortness of breath. Found to be hypoxic with EMS and despite oxygen hypoxic in the ED as well. Started on steroids and Remdesivir by ID on yesterday. IMS consult states possible COVID. Per documentation, patient is currently on 4 liters with last documented sats in the 's. Past History Past Medical History: hypertension, hyperlipidemia, other (See HPI) Past Surgical History: Other (Leg surgery) Social history: , smoking, alcohol abuse Family history: diabetes, hypertension Medications and Allergies Allergies Allergy/AdvReac Type Severity Reaction Status Date / Time No Known Allergies Allergy Verified 07/14/18 11:01 Home Medications Medication Instructions Recorded Confirmed Last Taken Type FLUoxetine [PROzac] 20 mg PO QDAY #15 capsule 08/18/18 07/18/20 Unknown Rx diazePAM TAB [Valium] 5 mg PO TID PRN #10 tablet 09/27/18 07/18/20 Unknown Rx Lisa Root [Lisa] 250 mg PO QID PRN #30 capsule 03/12/19 07/18/20 Unknown Rx Ondansetron [Zofran Odt] 4 mg PO Q8HR PRN #20 tab.rapdis 03/12/19 07/18/20 Unknown Rx Multivitamin with Folic Acid [Cvs 400 mcg PO QDAY #30 tablet 07/24/19 07/18/20 Unknown Rx One Daily Essential Tablet] amLODIPine 5 mg PO DAILY #30 07/24/19 07/18/20 Unknown Rx chlordiazePOXIDE [Librium] 25 mg PO Q6H PRN #30 capsule 07/24/19 07/18/20 Unknown Rx levETIRAcetam [Keppra TAB] 500 mg PO BID #60 tablet 09/23/19 07/18/20 Unknown Rx Amoxicillin/Potassium Clav 1 each PO BID #14 tablet 11/12/19 07/18/20 Unknown Rx [Augmentin 875-125 Tablet] Rabies Vacc, Human Diploid/Pf 2.5 unit IM ONCE #3 vial 11/12/19 07/18/20 Unknown Rx [Imovax Rabies Vaccine Vial] Active Meds: Active Medications Acetaminophen (Acetaminophen 325 Mg Tab) 650 mg PO Q4H PRN PRN Reason: Pain MILD(1-3)/Fever >100.5/RUCKER Last Admin: 07/18/20 01:20 Dose: 650 mg Documented by: Albuterol (Albuterol 2.5 Mg/3 Ml Nebu) 2.5 mg IH Q4HRT PRN PRN Reason: Shortness Of Breath Ascorbic Acid (Ascorbic Acid 500 Mg Tab) 500 mg PO BID [facility] Last Admin: 07/17/20 21:41 Dose: 500 mg Documented by: Chlordiazepoxide HCl (Chlordiazepoxide 25 Mg Cap) 50 mg PO Q1HR PRN PRN Reason: CIWA-Ar 8-15 Cholecalciferol (Cholecalciferol (Vit D3) 1000 Unit (25 Mcg) Tab) 1,000 unit PO QDAY [facility] Dexamethasone (Dexamethasone 4 Mg/Ml Vial) 6 mg IV DAILY [facility] Stop: 07/26/20 10:01 Famotidine (Famotidine 10 Mg Tab) 10 mg PO BID [facility] Last Admin: 07/17/20 21:41 Dose: 10 mg Documented by: Folic Acid (Folic Acid 1 Mg Tab) 1 mg PO QDAY [facility] Last Admin: 07/17/20 17:55 Dose: 1 mg Documented by: Furosemide (Furosemide 40 Mg/4 Ml Inj) 40 mg IV ONCE@0830 NR Stop: 07/18/20 11:00 Guaifenesin (Guaifenesin Dm 200/20 Mg Oral Liqd 10 Ml) 10 ml PO Q4H PRN PRN Reason: Cough Last Admin: 07/18/20 06:09 Dose: 10 ml Documented by: Heparin Sodium (Porcine) (Heparin 5,000 Unit/1 Ml Vial) 5,000 unit SUB-Q Q12HR [facility] Last Admin: 07/17/20 21:40 Dose: 5,000 unit Documented by: Hydromorphone HCl (Hydromorphone 1 Mg/1 Ml Inj) 0.25 mg IV Q4H PRN PRN Reason: Pain, Moderate (4-6) REMDESIVIR 100 mg/ Sodium (Chloride) 250 mls @ 500 mls/hr IV Q24HR@2100 [facility] Stop: 07/21/20 21:29 Lorazepam (Lorazepam 2 Mg/Ml Vial) 2 mg IV Q1HR PRN PRN Reason: CIWA-Ar 8-15 Lorazepam (Lorazepam 2 Mg/Ml Vial) 4 mg IV Q1HR PRN PRN Reason: CIWA-Ar 16-25 Lorazepam (Lorazepam 2 Mg/Ml Vial) 4 mg IV Q15MIN PRN PRN Reason: CIWA-Ar >25 Ondansetron HCl (Ondansetron 4 Mg/2 Ml Inj) 4 mg IV Q8H PRN PRN Reason: Nausea And Vomiting Sodium Chloride (Sodium Chloride 0.9% 10 Ml Flush Syringe) 10 ml IV BID [facility] Last Admin: 07/17/20 22:03 Dose: Not Given Documented by: Sodium Chloride (Sodium Chloride 0.9% 10 Ml Flush Syringe) 10 ml IV PRN PRN PRN Reason: LINE FLUSH Sodium Chloride (Sodium Chloride 0.9% 50 Ml Ivpb) 50 ml IV Q24HR@2100 [facility] Stop: 07/21/20 21:01 Last Admin: 07/17/20 17:56 Dose: 50 ml Documented by: Zinc Sulfate (Zinc Sulfate 220 Mg Cap) 220 mg PO BID [facility] Last Admin: 07/17/20 21:41 Dose: 220 mg Documented by: Review of Systems All systems: negative Physical Examination Vital signs: Vital Signs Temp Pulse Resp BP Pulse Ox 100.8 F H 105 H 28 H 112/77 93 07/17/20 11:00 07/17/20 11:00 07/17/20 11:00 07/17/20 11:00 07/17/20 11:00 Results - Laboratory Findings CBC and BMP: 07/18/20 03:48 07/18/20 03:48 PT/INR, D-dimer PT 12.9 Sec. (12.2-14.9) 07/17/20 11:41 INR 0.98 (0.87-1.13) 07/17/20 11:41 D-Dimer 1683.35 ng/mlDDU (0-234) H 07/17/20 11:41 Abnormal lab findings: Abnormal Labs 07/17/20 07/17/20 07/17/20 11:41 11:41 11:41 WBC Hct 34.7 L MCHC Lymph % (Auto) 9.5 L [place] % (Auto) 11.5 H Lymph # (Auto) 0.6 L Seg Neutrophils % 78.7 H D-Dimer Sodium 134 L Carbon Dioxide 19 L Glucose Ferritin AST Lactate Dehydrogenase C-Reactive Protein Albumin 3.6 L Salicylates < 0.3 L Acetaminophen Valproic Acid < 2.8 L 07/17/20 07/17/20 07/17/20 11:41 11:41 11:41 WBC Hct MCHC Lymph % (Auto) [place] % (Auto) Lymph # (Auto) Seg Neutrophils % D-Dimer 1683.35 H Sodium Carbon Dioxide Glucose Ferritin 694.9 H AST Lactate Dehydrogenase 391 H C-Reactive Protein 19.10 H Albumin Salicylates Acetaminophen Valproic Acid 07/17/20 07/18/20 07/18/20 11:41 03:48 03:48 WBC 4.2 L Hct 33.0 L MCHC 36 H Lymph % (Auto) 7.9 L [place] % (Auto) Lymph # (Auto) 0.3 L Seg Neutrophils % 85.6 H D-Dimer Sodium Carbon Dioxide 21 L Glucose 150 H Ferritin AST 41 H Lactate Dehydrogenase C-Reactive Protein Albumin 3.8 L Salicylates Acetaminophen 5.0 L Valproic Acid - Diagnostic Findings Chest x-ray: image reviewed Assessment and Plan 50 y/o male with acute respiratory failure secondary to COVID 19 1. Proning as tolerated during the day and sleep prone at night 2. Agree with steroids for 10 days 3. Remdesivir per ID. 4. Does not appear to be a candidate for Actemra 5. Keep as dry as possible 6. Will give a trial of lasix therapy Guarded prognosis.
--- NOTE | 2020-07-18 09:47 | Progress Note ---
Assessment and Plan Assessment and plan: #Acute upper respiratory failure Continue oxygen supplementation On 4 L of oxygen Pulmonology consult #Sepsis Antibiotics ID evaluation #COVID-19 infection Dexamethasone Antibiotics discontinued as procalcitonin is less than 0.25 Remdesivir ID evaluation Pulmonology evaluation Trend inflammatory markers #Nicotine dependence Smoking cessation counseling #Alcohol dependence CIWA protocol Folic acid #Hypertension Continue home medications Monitor blood pressure closely #DM mellitus Lantus and lispro Monitor blood glucose as patient is on dexamethasone #Seizure disorder Continue antiepileptic medication #DVT prophylaxis-Lovenox #Discharge planning-likely home when stable ( History Interval history: 07/18. Patient is having coughing spells. awaiting COVID-19 test. Remains on 4 L of oxygen. Pulmonology consulted for respiratory failure. ID on board. Febrile overnight Hospitalist Physical - Physical exam Narrative exam: VITAL SIGNS: Reviewed. GENERAL: Awake HEAD: No signs of head trauma. EYES: Pupils are equal. Extraocular motions intact. MOUTH: Oropharynx is normal. NECK: No adenopathy, no JVD. CHEST: Chest with diminished breath sounds bilaterally. No wheezes, rales, or rhonchi. CARDIAC: normal S1 and S2, without murmurs, gallops, or rubs. ABDOMEN: Soft, non tender and non distended. No rebound or guarding, and no masses palpated. Bowel Sounds normal. MUSCULOSKELETAL: No edema NEUROLOGIC EXAM: Alert and oriented x3. No focal neurologic deficits SKIN: No obvious lesions - Constitutional Vitals: Temp Pulse Resp BP Pulse Ox 100.9 F H 106 H 20 122/80 93 07/17/20 23:39 07/17/20 23:39 07/17/20 23:39 07/17/20 23:39 07/17/20 23:39 HEART Score - HEART Score Troponin: Troponin T < 0.010 ng/mL (0.00-0.029) 07/17/20 11:41 Results - Labs CBC & Chem 7: 07/18/20 03:48 07/18/20 03:48 Labs: Laboratory Last Values WBC 4.2 K/mm3 (4.5-11.0) L 07/18/20 03:48 RBC 3.77 M/mm3 (3.65-5.03) 07/18/20 03:48 Hgb 11.8 gm/dl (11.8-15.2) 07/18/20 03:48 Hct 33.0 % (35.5-45.6) L 07/18/20 03:48 MCV 88 fl (84-94) 07/18/20 03:48 MCH 31 pg (28-32) 07/18/20 03:48 MCHC 36 % (32-34) H 07/18/20 03:48 RDW 13.7 % (13.2-15.2) 07/18/20 03:48 Plt Count 249 K/mm3 (140-440) 07/18/20 03:48 Lymph % (Auto) 7.9 % (13.4-35.0) L 07/18/20 03:48 [place] % (Auto) 6.4 % (0.0-7.3) 07/18/20 03:48 Eos % (Auto) 0.0 % (0.0-4.3) 07/18/20 03:48 Baso % (Auto) 0.1 % (0.0-1.8) 07/18/20 03:48 Lymph # (Auto) 0.3 K/mm3 (1.2-5.4) L 07/18/20 03:48 [place] # (Auto) 0.3 K/mm3 (0.0-0.8) 07/18/20 03:48 Eos # (Auto) 0.0 K/mm3 (0.0-0.4) 07/18/20 03:48 Baso # (Auto) 0.0 K/mm3 (0.0-0.1) 07/18/20 03:48 Seg Neutrophils % 85.6 % (40.0-70.0) H 07/18/20 03:48 Seg Neutrophils # 3.6 K/mm3 (1.8-7.7) 07/18/20 03:48 PT 12.9 Sec. (12.2-14.9) 07/17/20 11:41 INR 0.98 (0.87-1.13) 07/17/20 11:41 APTT 35.3 Sec. (24.2-36.6) 07/17/20 11:41 D-Dimer 1683.35 ng/mlDDU (0-234) H 07/17/20 11:41 Sodium 139 mmol/L (137-145) 07/18/20 03:48 Potassium 4.4 mmol/L (3.6-5.0) 07/18/20 03:48 Chloride 105.0 mmol/L (98-107) 07/18/20 03:48 Carbon Dioxide 21 mmol/L (22-30) L 07/18/20 03:48 Anion Gap 17 mmol/L 07/18/20 03:48 BUN 14 mg/dL (9-20) 07/18/20 03:48 Creatinine 0.8 mg/dL (0.8-1.3) 07/18/20 03:48 Estimated GFR > 60 ml/min 07/18/20 03:48 BUN/Creatinine Ratio 18 % 07/18/20 03:48 Glucose 150 mg/dL (75-100) H 07/18/20 03:48 Lactic Acid 1.10 mmol/L (0.7-2.0) 07/18/20 03:48 Calcium 8.8 mg/dL (8.4-10.2) 07/18/20 03:48 Phosphorus 3.30 mg/dL (2.5-4.5) 07/17/20 11:41 Magnesium 1.90 mg/dL (1.7-2.3) 07/17/20 11:41 Ferritin 694.9 ng/mL (30.0-300.0) H 07/17/20 11:41 Total Bilirubin 0.20 mg/dL (0.1-1.2) 07/18/20 03:48 AST 41 units/L (5-40) H 07/18/20 03:48 ALT 31 units/L (7-56) 07/18/20 03:48 Alkaline Phosphatase 61 units/L (35-129) 07/18/20 03:48 Lactate Dehydrogenase 391 units/L (91-180) H 07/17/20 11:41 Troponin T < 0.010 ng/mL (0.00-0.029) 07/17/20 11:41 C-Reactive Protein 19.10 mg/dL (0.00-1.30) H 07/17/20 11:41 NT-Pro-B Natriuret Pep 113.4 pg/mL (0-450) 07/18/20 Unknown Total Protein 6.7 g/dL (6.3-8.2) 07/18/20 03:48 Albumin 3.8 g/dL (3.9-5) L 07/18/20 03:48 Albumin/Globulin Ratio 1.3 % 07/18/20 03:48 Procalcitonin 0.10 ng/mL (<0.15) 07/17/20 11:41 Salicylates < 0.3 mg/dL (2.8-20.0) L 07/17/20 11:41 Acetaminophen 5.0 ug/mL (10.0-30.0) L 07/17/20 11:41 Valproic Acid < 2.8 ug/mL (50-100) L 07/17/20 11:41 [place] 0.1 mmol/L (0.0-1.2) 07/17/20 11:41 Plasma/Serum Alcohol < 0.01 % (0-0.07) 07/17/20 11:41 Microbiology: Microbiology 07/17/20 11:41 Peripheral/Venous Blood Culture - Preliminary Culture in Progress 07/17/20 11:41 Peripheral/Venous Blood Culture - Preliminary Culture in Progress Young/IV: Voiding Method Toilet Active Medications - Current Medications Current Medications: Generic Name Dose Route Start Last Admin Trade Name Freq PRN Reason Stop Dose Admin Acetaminophen 650 mg 07/17/20 13:10 07/18/20 01:20 Acetaminophen 325 Mg Tab PO 650 mg Q4H PRN Administration Pain MILD(1-3)/Fever >100.5/RUCKER Albuterol 2.5 mg 07/17/20 13:10 Albuterol 2.5 Mg/3 Ml Nebu IH Q4HRT PRN Shortness Of Breath Ascorbic Acid 500 mg 07/17/20 22:00 07/18/20 09:06 Ascorbic Acid 500 Mg Tab PO 500 mg BID NICOL Administration Chlordiazepoxide HCl 50 mg 07/17/20 11:12 Chlordiazepoxide 25 Mg Cap PO Q1HR PRN CIWA-Ar 8-15 Cholecalciferol 1,000 unit 07/18/20 10:00 07/18/20 09:06 Cholecalciferol (Vit D3) 1000 Unit (25 Mcg) Tab PO 1,000 unit QDAY NICOL Administration Dexamethasone 6 mg 07/18/20 10:00 07/18/20 09:06 Dexamethasone 4 Mg/Ml Vial IV 07/26/20 10:01 6 mg DAILY NICOL Administration Famotidine 10 mg 07/17/20 22:00 07/18/20 09:06 Famotidine 10 Mg Tab PO 10 mg BID NICOL Administration Folic Acid 1 mg 07/17/20 13:14 07/18/20 09:06 Folic Acid 1 Mg Tab PO 1 mg QDAY NICOL Administration Furosemide 40 mg 07/18/20 08:30 07/18/20 09:06 Furosemide 40 Mg/4 Ml Inj IV 07/18/20 11:00 40 mg ONCE@0830 NR Administration Guaifenesin 10 ml 07/18/20 01:00 07/18/20 06:09 Guaifenesin Dm 200/20 Mg Oral Liqd 10 Ml PO 10 ml Q4H PRN Administration Cough Heparin Sodium (Porcine) 5,000 unit 07/17/20 22:00 07/18/20 09:06 Heparin 5,000 Unit/1 Ml Vial SUB-Q 5,000 unit Q12HR NICOL Administration Hydromorphone HCl 0.25 mg 07/17/20 13:10 Hydromorphone 1 Mg/1 Ml Inj IV Q4H PRN Pain, Moderate (4-6) REMDESIVIR 100 mg/ Sodium 250 mls @ 500 mls/hr 07/18/20 21:00 Chloride IV 07/21/20 21:29 Q24HR@2100 NICOL Lorazepam 2 mg 07/17/20 11:12 Lorazepam 2 Mg/Ml Vial IV Q1HR PRN CIWA-Ar 8-15 Lorazepam 4 mg 07/17/20 11:12 Lorazepam 2 Mg/Ml Vial IV Q1HR PRN CIWA-Ar 16-25 Lorazepam 4 mg 07/17/20 11:12 Lorazepam 2 Mg/Ml Vial IV Q15MIN PRN CIWA-Ar >25 Ondansetron HCl 4 mg 07/17/20 13:10 Ondansetron 4 Mg/2 Ml Inj IV Q8H PRN Nausea And Vomiting Sodium Chloride 10 ml 07/17/20 22:00 07/18/20 09:07 Sodium Chloride 0.9% 10 Ml Flush Syringe IV 10 ml BID NICOL Administration Sodium Chloride 10 ml 07/17/20 13:10 Sodium Chloride 0.9% 10 Ml Flush Syringe IV PRN PRN LINE FLUSH Sodium Chloride 50 ml 07/17/20 16:00 07/17/20 17:56 Sodium Chloride 0.9% 50 Ml Ivpb IV 07/21/20 21:01 50 ml Q24HR@2100 NICOL Administration Zinc Sulfate 220 mg 07/17/20 22:00 07/18/20 09:06 Zinc Sulfate 220 Mg Cap PO 220 mg BID NICOL Administration
--- NOTE | 2020-07-18 11:27 | Progress Note ---
Assessment and Plan Cultures: Blood culture no growth so far Covid PCR: Positive as outpatient, pending as inpatient. A/P: 50-year-old man past medical history hypertension, hyperlipidemia, alcohol dependence, seizures, diabetes, asthma admitted with COVID-19. #COVID-19 pneumonia: Patient presented with a week of symptoms, chest x-ray with diffuse bilateral infiltrates. Inflammatory markers elevated. #Acute hypoxemic respiratory failure: Likely secondary to COVID-19 infection. Currently on 4L NC #Diabetes: tight glycemic control for best outcomes. #Asthma #Leukopenia: likely secondary to COVID Recs: -Dexamethasone 6 mg IV/PO daily for 10 days -Remdesivir 200 mg IV q day x 1 followed by 100 mg IV q day x 4 days. D2 of 5 -Obtain q48-72h inflammatory markers - ferritin, Ddimer, CRP, LDH -Anticoagulation per hospital protocol -Proning as able Thank you for the consult, we will continue to follow. Huyen Tellez MD [facility] ([facility] O: [phone] F: [phone] Subjective Date of service: 07/18/20 Interval history: Persistently febrile, white count now 4.2 Objective - Exam Narrative Exam: Physical exam deferred to reduce risk of transmission of COVID-19. Please refer to primary team's note. - Constitutional Vitals: Vital Signs Temp Pulse Resp BP Pulse Ox 100.9 F H 106 H 20 122/80 93 07/17/20 23:39 07/17/20 23:39 07/17/20 23:39 07/17/20 23:39 07/17/20 23:39 Temperature -Last 24 Hours Temperature 100.9 F Temperature 100.5 F - Labs CBC & Chem 7: 07/18/20 03:48 07/18/20 03:48 Labs: Abnormal lab results 07/17/20 07/17/20 07/17/20 Range/Units 11:41 11:41 11:41 WBC (4.5-11.0) K/mm3 Hct 34.7 L (35.5-45.6) % MCHC (32-34) % Lymph % (Auto) 9.5 L (13.4-35.0) % [place] % (Auto) 11.5 H (0.0-7.3) % Lymph # (Auto) 0.6 L (1.2-5.4) K/mm3 Seg Neutrophils % 78.7 H (40.0-70.0) % D-Dimer (0-234) ng/mlDDU Sodium 134 L (137-145) mmol/L Carbon Dioxide 19 L (22-30) mmol/L Glucose (75-100) mg/dL Ferritin (30.0-300.0) ng/mL AST (5-40) units/L Lactate Dehydrogenase (91-180) units/L C-Reactive Protein (0.00-1.30) mg/dL Albumin 3.6 L (3.9-5) g/dL Salicylates < 0.3 L (2.8-20.0) mg/dL Acetaminophen (10.0-30.0) ug/mL Valproic Acid < 2.8 L (50-100) ug/mL 07/17/20 07/17/20 07/17/20 Range/Units 11:41 11:41 11:41 WBC (4.5-11.0) K/mm3 Hct (35.5-45.6) % MCHC (32-34) % Lymph % (Auto) (13.4-35.0) % [place] % (Auto) (0.0-7.3) % Lymph # (Auto) (1.2-5.4) K/mm3 Seg Neutrophils % (40.0-70.0) % D-Dimer 1683.35 H (0-234) ng/mlDDU Sodium (137-145) mmol/L Carbon Dioxide (22-30) mmol/L Glucose (75-100) mg/dL Ferritin 694.9 H (30.0-300.0) ng/mL AST (5-40) units/L Lactate Dehydrogenase 391 H (91-180) units/L C-Reactive Protein 19.10 H (0.00-1.30) mg/dL Albumin (3.9-5) g/dL Salicylates (2.8-20.0) mg/dL Acetaminophen (10.0-30.0) ug/mL Valproic Acid (50-100) ug/mL 07/17/20 07/18/20 07/18/20 Range/Units 11:41 03:48 03:48 WBC 4.2 L (4.5-11.0) K/mm3 Hct 33.0 L (35.5-45.6) % MCHC 36 H (32-34) % Lymph % (Auto) 7.9 L (13.4-35.0) % [place] % (Auto) (0.0-7.3) % Lymph # (Auto) 0.3 L (1.2-5.4) K/mm3 Seg Neutrophils % 85.6 H (40.0-70.0) % D-Dimer (0-234) ng/mlDDU Sodium (137-145) mmol/L Carbon Dioxide 21 L (22-30) mmol/L Glucose 150 H (75-100) mg/dL Ferritin (30.0-300.0) ng/mL AST 41 H (5-40) units/L Lactate Dehydrogenase (91-180) units/L C-Reactive Protein (0.00-1.30) mg/dL Albumin 3.8 L (3.9-5) g/dL Salicylates (2.8-20.0) mg/dL Acetaminophen 5.0 L (10.0-30.0) ug/mL Valproic Acid (50-100) ug/mL
[2020-07-18] MEDS: SODIUM CHLORIDE 0.9% 50 ML IVPB IV SCH (21:58)
[2020-07-18] MEDS: REMDESIVIR 100 MG in SODIUM CHLORIDE 0.9% 250ML 250 ML IV SCH (21:58)
[2020-07-19] MEDS: BENZONATATE 100 MG CAP PO SCH ×5 (00:07→22:06)
[2020-07-19 09:04] LABS: Alanine Aminotransferase 52 units/L (7-56); Albumin 3.2 g/dL (3.9-5); BUN/Creatinine Ratio 26; Blood Urea Nitrogen 21 mg/dL (9-20); Calcium 9.1 mg/dL (8.4-10.2); Hemolysis Index 12
--- NOTE | 2020-07-19 09:21 | Progress Note ---
Assessment and Plan Assessment and plan: #Acute upper respiratory failure Continue oxygen supplementation On 4 L of oxygen Pulmonology consult #Sepsis POA #COVID-19 infection Dexamethasone Antibiotics discontinued as procalcitonin is less than 0.25 Remdesivir ID evaluation Pulmonology evaluation Trend inflammatory markers # Elevated d-dimer US doppler LE ordered. #Nicotine dependence Smoking cessation counseling #Alcohol dependence [facility] protocol Folic acid #Hypertension Continue home medications Monitor blood pressure closely #DM mellitus Lantus and lispro Monitor blood glucose as patient is on dexamethasone #Seizure disorder Continue antiepileptic medication #DVT prophylaxis-Lovenox #Discharge planning-likely home when stable History Interval history: 07/18. Patient is having coughing spells. awaiting COVID-19 test. Remains on 4 L of oxygen. Pulmonology consulted for respiratory failure. ID on board. Febrile overnight. 07/19. On 6L oxygen. COVID-19 positive. On remdesivir and dexamethasone. Doppler LE ordered. Hospitalist Physical - Physical exam Narrative exam: VITAL SIGNS: Reviewed. GENERAL: Awake HEAD: No signs of head trauma. EYES: Pupils are equal. Extraocular motions intact. MOUTH: Oropharynx is normal. NECK: No adenopathy, no JVD. CHEST: Rales CARDIAC: normal S1 and S2, without murmurs, gallops, or rubs. ABDOMEN: Soft, non tender and non distended. No rebound or guarding, and no masses palpated. Bowel Sounds normal. MUSCULOSKELETAL: No edema NEUROLOGIC EXAM: Alert and oriented x3. No focal neurologic deficits SKIN: No obvious lesions - Constitutional Vitals: Temp Pulse Resp BP Pulse Ox 98.6 F 89 18 112/76 92 07/18/20 23:05 07/19/20 04:35 07/19/20 04:35 07/19/20 04:35 07/19/20 08:39 HEART Score - HEART Score Troponin: Troponin T < 0.010 ng/mL (0.00-0.029) 07/17/20 11:41 Results - Labs CBC & Chem 7: 07/18/20 03:48 07/19/20 06:49 Labs: Laboratory Last Values WBC 4.2 K/mm3 (4.5-11.0) L 07/18/20 03:48 RBC 3.77 M/mm3 (3.65-5.03) 07/18/20 03:48 Hgb 11.8 gm/dl (11.8-15.2) 07/18/20 03:48 Hct 33.0 % (35.5-45.6) L 07/18/20 03:48 MCV 88 fl (84-94) 07/18/20 03:48 MCH 31 pg (28-32) 07/18/20 03:48 MCHC 36 % (32-34) H 07/18/20 03:48 RDW 13.7 % (13.2-15.2) 07/18/20 03:48 Plt Count 249 K/mm3 (140-440) 07/18/20 03:48 Lymph % (Auto) 7.9 % (13.4-35.0) L 07/18/20 03:48 [place] % (Auto) 6.4 % (0.0-7.3) 07/18/20 03:48 Eos % (Auto) 0.0 % (0.0-4.3) 07/18/20 03:48 Baso % (Auto) 0.1 % (0.0-1.8) 07/18/20 03:48 Lymph # (Auto) 0.3 K/mm3 (1.2-5.4) L 07/18/20 03:48 [place] # (Auto) 0.3 K/mm3 (0.0-0.8) 07/18/20 03:48 Eos # (Auto) 0.0 K/mm3 (0.0-0.4) 07/18/20 03:48 Baso # (Auto) 0.0 K/mm3 (0.0-0.1) 07/18/20 03:48 Seg Neutrophils % 85.6 % (40.0-70.0) H 07/18/20 03:48 Seg Neutrophils # 3.6 K/mm3 (1.8-7.7) 07/18/20 03:48 PT 12.9 Sec. (12.2-14.9) 07/17/20 11:41 INR 0.98 (0.87-1.13) 07/17/20 11:41 APTT 35.3 Sec. (24.2-36.6) 07/17/20 11:41 D-Dimer 1602.42 ng/mlDDU (0-234) H 07/19/20 06:49 Sodium 141 mmol/L (137-145) 07/19/20 06:49 Potassium 3.9 mmol/L (3.6-5.0) 07/19/20 06:49 Chloride 108.0 mmol/L (98-107) H 07/19/20 06:49 Carbon Dioxide 23 mmol/L (22-30) 07/19/20 06:49 Anion Gap 14 mmol/L 07/19/20 06:49 BUN 21 mg/dL (9-20) H 07/19/20 06:49 Creatinine 0.8 mg/dL (0.8-1.3) 07/19/20 06:49 Estimated GFR > 60 ml/min 07/19/20 06:49 BUN/Creatinine Ratio 26 % 07/19/20 06:49 Glucose 126 mg/dL (75-100) H 07/19/20 06:49 POC Glucose 119 mg/dL (70-105) H 07/19/20 08:21 Lactic Acid 1.10 mmol/L (0.7-2.0) 07/18/20 03:48 Calcium 9.1 mg/dL (8.4-10.2) 07/19/20 06:49 Phosphorus 3.30 mg/dL (2.5-4.5) 07/17/20 11:41 Magnesium 1.90 mg/dL (1.7-2.3) 07/17/20 11:41 Ferritin 694.9 ng/mL (30.0-300.0) H 07/17/20 11:41 Total Bilirubin 0.20 mg/dL (0.1-1.2) 07/19/20 06:49 AST 59 units/L (5-40) H 07/19/20 06:49 ALT 52 units/L (7-56) 07/19/20 06:49 Alkaline Phosphatase 55 units/L (35-129) 07/19/20 06:49 Lactate Dehydrogenase 448 units/L (91-180) H 07/19/20 06:49 Troponin T < 0.010 ng/mL (0.00-0.029) 07/17/20 11:41 C-Reactive Protein 10.70 mg/dL (0.00-1.30) H 07/19/20 06:49 NT-Pro-B Natriuret Pep 113.4 pg/mL (0-450) 07/18/20 Unknown Total Protein 6.9 g/dL (6.3-8.2) 07/19/20 06:49 Albumin 3.2 g/dL (3.9-5) L 07/19/20 06:49 Albumin/Globulin Ratio 0.9 % 07/19/20 06:49 Procalcitonin 0.10 ng/mL (<0.15) 07/17/20 11:41 Salicylates < 0.3 mg/dL (2.8-20.0) L 07/17/20 11:41 Acetaminophen 5.0 ug/mL (10.0-30.0) L 07/17/20 11:41 Valproic Acid < 2.8 ug/mL (50-100) L 07/17/20 11:41 [place] 0.1 mmol/L (0.0-1.2) 07/17/20 11:41 Plasma/Serum Alcohol < 0.01 % (0-0.07) 07/17/20 11:41 Coronavirus (PCR) Positive (Negative) A 07/17/20 09:30 Microbiology: Microbiology 07/17/20 11:41 Peripheral/Venous Blood Culture - Preliminary NO GROWTH AFTER 24 HOURS 07/17/20 11:41 Peripheral/Venous Blood Culture - Preliminary NO GROWTH AFTER 24 HOURS Young/IV: Voiding Method Toilet Active Medications - Current Medications Current Medications: Generic Name Dose Route Start Last Admin Trade Name Freq PRN Reason Stop Dose Admin Acetaminophen 650 mg 07/17/20 13:10 07/18/20 01:20 Acetaminophen 325 Mg Tab PO 650 mg Q4H PRN Administration Pain MILD(1-3)/Fever >100.5/RUCKER Albuterol 2.5 mg 07/17/20 13:10 Albuterol 2.5 Mg/3 Ml Nebu IH Q4HRT PRN Shortness Of Breath Ascorbic Acid 500 mg 07/17/20 22:00 07/18/20 21:59 Ascorbic Acid 500 Mg Tab PO 500 mg BID NICOL Administration Benzonatate 100 mg 07/18/20 22:00 07/19/20 02:22 Benzonatate 100 Mg Cap PO 100 mg Q8HR NICOL Administration Chlordiazepoxide HCl 50 mg 07/17/20 11:12 Chlordiazepoxide 25 Mg Cap PO Q1HR PRN CIWA-Ar 8-15 Cholecalciferol 1,000 unit 07/18/20 10:00 07/18/20 09:06 Cholecalciferol (Vit D3) 1000 Unit (25 Mcg) Tab PO 1,000 unit QDAY NICOL Administration Dexamethasone 6 mg 07/18/20 10:00 07/18/20 09:06 Dexamethasone 4 Mg/Ml Vial IV 07/26/20 10:01 6 mg DAILY NICOL Administration Famotidine 10 mg 07/17/20 22:00 07/18/20 21:58 Famotidine 10 Mg Tab PO 10 mg BID NICOL Administration Folic Acid 1 mg 07/17/20 13:14 07/18/20 09:06 Folic Acid 1 Mg Tab PO 1 mg QDAY NICOL Administration Guaifenesin 10 ml 07/18/20 01:00 07/18/20 21:58 Guaifenesin Dm 200/20 Mg Oral Liqd 10 Ml PO 10 ml Q4H PRN Administration Cough Heparin Sodium (Porcine) 5,000 unit 07/17/20 22:00 07/18/20 21:58 Heparin 5,000 Unit/1 Ml Vial SUB-Q 5,000 unit Q12HR NICOL Administration Hydromorphone HCl 0.25 mg 07/17/20 13:10 Hydromorphone 1 Mg/1 Ml Inj IV Q4H PRN Pain, Moderate (4-6) REMDESIVIR 100 mg/ Sodium 250 mls @ 500 mls/hr 07/18/20 21:00 07/18/20 21:58 Chloride IV 07/21/20 21:29 500 mls/hr Q24HR@2100 NICOL Administration Lorazepam 2 mg 07/17/20 11:12 Lorazepam 2 Mg/Ml Vial IV Q1HR PRN CIWA-Ar 8-15 Lorazepam 4 mg 07/17/20 11:12 Lorazepam 2 Mg/Ml Vial IV Q1HR PRN CIWA-Ar 16-25 Lorazepam 4 mg 07/17/20 11:12 Lorazepam 2 Mg/Ml Vial IV Q15MIN PRN CIWA-Ar >25 Ondansetron HCl 4 mg 07/17/20 13:10 Ondansetron 4 Mg/2 Ml Inj IV Q8H PRN Nausea And Vomiting Sodium Chloride 10 ml 07/17/20 22:00 07/18/20 21:59 Sodium Chloride 0.9% 10 Ml Flush Syringe IV 10 ml BID NICOL Administration Sodium Chloride 10 ml 07/17/20 13:10 Sodium Chloride 0.9% 10 Ml Flush Syringe IV PRN PRN LINE FLUSH Sodium Chloride 50 ml 07/17/20 16:00 07/18/20 21:58 Sodium Chloride 0.9% 50 Ml Ivpb IV 07/21/20 21:01 50 ml Q24HR@2100 NICOL Administration Zinc Sulfate 220 mg 07/17/20 22:00 07/18/20 21:58 Zinc Sulfate 220 Mg Cap PO 220 mg BID NICOL Administration
[2020-07-19] MEDS: FAMOTIDINE 10 MG TAB PO SCH ×2 (09:49→22:06)
[2020-07-19] MEDS: FOLIC ACID 1 MG TAB PO SCH (09:49)
[2020-07-19] MEDS: ZINC SULFATE 220 MG CAP PO SCH ×2 (09:49→22:06)
[2020-07-19] MEDS: ASCORBIC ACID 500 MG TAB PO SCH ×2 (09:49→22:06)
[2020-07-19] MEDS: dexAMETHasone 4 MG/ML VIAL IV SCH (09:49)
[2020-07-19] MEDS: CHOLECALCIFEROL (VIT D3) 1000 UNIT (25 mcg) TAB PO SCH (09:50)
--- NOTE | 2020-07-19 13:27 | Progress Note ---
Assessment and Plan Cultures: Blood culture no growth so far Covid PCR: Positive as outpatient, pending as inpatient. A/P: 50-year-old man past medical history hypertension, hyperlipidemia, alcohol dependence, seizures, diabetes, asthma admitted with COVID-19. #COVID-19 pneumonia: Patient presented with a week of symptoms, chest x-ray with diffuse bilateral infiltrates. Inflammatory markers elevated. #Acute hypoxemic respiratory failure: Likely secondary to COVID-19 infection. Currently on 4L NC #Diabetes: tight glycemic control for best outcomes. #Asthma #Leukopenia: likely secondary to COVID Recs: -Dexamethasone 6 mg IV/PO daily for 10 days -Remdesivir 200 mg IV q day x 1 followed by 100 mg IV q day x 4 days. D3 of 5 -Obtain q48-72h inflammatory markers - ferritin, Ddimer, CRP, LDH -Anticoagulation per hospital protocol -Proning as able Thank you for the consult, we will continue to follow. Huyen Tellez MD [facility] ([facility] O: [phone] F: [phone] Subjective Date of service: 07/19/20 Interval history: Afebrile now, on 3L NC. No acute changes. Objective - Exam Narrative Exam: Physical exam deferred to reduce risk of transmission of COVID-19. Please refer to primary team's note. - Constitutional Vitals: Vital Signs Temp Pulse Resp BP Pulse Ox 98.6 F 89 18 112/76 92 07/18/20 23:05 07/19/20 04:35 07/19/20 04:35 07/19/20 04:35 07/19/20 08:39 Temperature -Last 24 Hours Temperature 98.6 F Temperature 98.2 F - Labs CBC & Chem 7: 07/18/20 03:48 07/19/20 06:49 Labs: Abnormal lab results 07/17/20 07/18/20 07/19/20 Range/Units 09:30 23:08 06:49 D-Dimer (0-234) ng/mlDDU Chloride 108.0 H (98-107) mmol/L BUN 21 H (9-20) mg/dL Glucose 126 H (75-100) mg/dL POC Glucose 151 H (70-105) mg/dL Ferritin (30.0-300.0) ng/mL AST 59 H (5-40) units/L Lactate Dehydrogenase 448 H (91-180) units/L C-Reactive Protein 10.70 H (0.00-1.30) mg/dL Albumin 3.2 L (3.9-5) g/dL Coronavirus (PCR) Positive A (Negative) 07/19/20 07/19/20 07/19/20 Range/Units 06:49 06:49 08:21 D-Dimer 1602.42 H (0-234) ng/mlDDU Chloride (98-107) mmol/L BUN (9-20) mg/dL Glucose (75-100) mg/dL POC Glucose 119 H (70-105) mg/dL Ferritin 967.0 H (30.0-300.0) ng/mL AST (5-40) units/L Lactate Dehydrogenase (91-180) units/L C-Reactive Protein (0.00-1.30) mg/dL Albumin (3.9-5) g/dL Coronavirus (PCR) (Negative) 07/19/20 Range/Units 11:20 D-Dimer (0-234) ng/mlDDU Chloride (98-107) mmol/L BUN (9-20) mg/dL Glucose (75-100) mg/dL POC Glucose 117 H (70-105) mg/dL Ferritin (30.0-300.0) ng/mL AST (5-40) units/L Lactate Dehydrogenase (91-180) units/L C-Reactive Protein (0.00-1.30) mg/dL Albumin (3.9-5) g/dL Coronavirus (PCR) (Negative)
--- NOTE | 2020-07-19 14:12 | Vascular Lab Report ---
DUPLEX DOPPLER LOWER EXTREMITY VEINS, BILATERAL INDICATION / CLINICAL INFORMATION: Rule out DVT. TECHNIQUE: Duplex doppler imaging was performed through the veins of both lower extremities using venous sue jonathan and other maneuvers. COMPARISON: None available. FINDINGS: RIGHT COMMON FEMORAL VEIN: Negative. RIGHT FEMORAL VEIN: Negative. RIGHT POPLITEAL VEIN: Negative. RIGHT CALF VEINS: Negative. LEFT COMMON FEMORAL VEIN: Negative. LEFT FEMORAL VEIN: Negative. LEFT POPLITEAL VEIN: Negative. LEFT CALF VEINS: Negative. ADDITIONAL FINDINGS: None. IMPRESSION: 1. No sonographic evidence for DVT in either lower extremity. Signer Name: Mack Napier MD Signed: 07/19/2020 1:24 PM Workstation Name: [id number]
[2020-07-19] MEDS ORDERED: FUROSEMIDE 40 MG/4 ML INJ IV ONE (14:54)
--- NOTE | 2020-07-19 16:08 | Progress Note ---
Assessment and Plan 50 y/o male with acute respiratory failure secondary to COVID 19 1. Proning as tolerated during the day and sleep prone at night 2. Agree with steroids for 10 days 3. Remdesivir per ID. 4. Does not appear to be a candidate for Actemra 5. Keep as dry as possible Guarded prognosis. Subjective Date of service: 07/19/20 Interval history: No acute events. Still on 3 liters. Good sats. Objective Vital Signs - 12hr 07/19/20 07/19/20 04:35 08:39 Pulse Rate 89 Respiratory 18 Rate Blood Pressure 112/76 O2 Sat by Pulse 92 92 Oximetry CBC and BMP: 07/18/20 03:48 07/19/20 06:49 ABG, PT/INR, D-dimer: PT/INR, D-dimer PT 12.9 Sec. (12.2-14.9) 07/17/20 11:41 INR 0.98 (0.87-1.13) 07/17/20 11:41 D-Dimer 1602.42 ng/mlDDU (0-234) H 07/19/20 06:49 Abnormal lab findings: Abnormal Labs 07/17/20 07/17/20 07/17/20 09:30 11:41 11:41 WBC Hct MCHC Lymph % (Auto) [place] % (Auto) Lymph # (Auto) Seg Neutrophils % D-Dimer Sodium 134 L Chloride Carbon Dioxide 19 L BUN Glucose POC Glucose Ferritin AST Lactate Dehydrogenase C-Reactive Protein Albumin 3.6 L Salicylates < 0.3 L Acetaminophen Valproic Acid < 2.8 L Coronavirus (PCR) Positive A 07/17/20 07/17/20 07/17/20 11:41 11:41 11:41 WBC Hct 34.7 L MCHC Lymph % (Auto) 9.5 L [place] % (Auto) 11.5 H Lymph # (Auto) 0.6 L Seg Neutrophils % 78.7 H D-Dimer 1683.35 H Sodium Chloride Carbon Dioxide BUN Glucose POC Glucose Ferritin AST Lactate Dehydrogenase 391 H C-Reactive Protein 19.10 H Albumin Salicylates Acetaminophen Valproic Acid Coronavirus (PCR) 07/17/20 07/17/20 07/18/20 11:41 11:41 03:48 WBC 4.2 L Hct 33.0 L MCHC 36 H Lymph % (Auto) 7.9 L [place] % (Auto) Lymph # (Auto) 0.3 L Seg Neutrophils % 85.6 H D-Dimer Sodium Chloride Carbon Dioxide BUN Glucose POC Glucose Ferritin 694.9 H AST Lactate Dehydrogenase C-Reactive Protein Albumin Salicylates Acetaminophen 5.0 L Valproic Acid Coronavirus (PCR) 07/18/20 07/18/20 07/19/20 03:48 23:08 06:49 WBC Hct MCHC Lymph % (Auto) [place] % (Auto) Lymph # (Auto) Seg Neutrophils % D-Dimer Sodium Chloride 108.0 H Carbon Dioxide 21 L BUN 21 H Glucose 150 H 126 H POC Glucose 151 H Ferritin AST 41 H 59 H Lactate Dehydrogenase 448 H C-Reactive Protein 10.70 H Albumin 3.8 L 3.2 L Salicylates Acetaminophen Valproic Acid Coronavirus (PCR) 07/19/20 07/19/20 07/19/20 06:49 06:49 08:21 WBC Hct MCHC Lymph % (Auto) [place] % (Auto) Lymph # (Auto) Seg Neutrophils % D-Dimer 1602.42 H Sodium Chloride Carbon Dioxide BUN Glucose POC Glucose 119 H Ferritin 967.0 H AST Lactate Dehydrogenase C-Reactive Protein Albumin Salicylates Acetaminophen Valproic Acid Coronavirus (PCR) 07/19/20 11:20 WBC Hct MCHC Lymph % (Auto) [place] % (Auto) Lymph # (Auto) Seg Neutrophils % D-Dimer Sodium Chloride Carbon Dioxide BUN Glucose POC Glucose 117 H Ferritin AST Lactate Dehydrogenase C-Reactive Protein Albumin Salicylates Acetaminophen Valproic Acid Coronavirus (PCR)
[2020-07-19] MEDS: guaiFENesin DM 200/20 MG ORAL LIQD 10 ML PO PRN (16:34)
[2020-07-19] MEDS: REMDESIVIR 100 MG in SODIUM CHLORIDE 0.9% 250ML 250 ML IV SCH (22:05)
[2020-07-19] MEDS: SODIUM CHLORIDE 0.9% 50 ML IVPB IV SCH (22:06)
[2020-07-19] MEDS: ENOXAPARIN 40 MG/0.4 ML INJ SUB-Q SCH (22:06)
[2020-07-20] MEDS: BENZONATATE 100 MG CAP PO SCH ×3 (05:42→21:15)
[2020-07-20 07:24] LABS: Alanine Aminotransferase 213 units/L (7-56); Albumin 3.4 g/dL (3.9-5); BUN/Creatinine Ratio 30; Blood Urea Nitrogen 27 mg/dL (9-20); Calcium 9.3 mg/dL (8.4-10.2); Hemolysis Index 4
--- NOTE | 2020-07-20 09:17 | Progress Note ---
Assessment and Plan Assessment and plan: #Acute upper respiratory failure Continue oxygen supplementation #Sepsis POA #COVID-19 infection Dexamethasone Antibiotics discontinued as procalcitonin is less than 0.25 Remdesivir ID and pulmonology evaluation Trend inflammatory markers #Elevated LFTs AST/ALT trending up. Likely effect of remdesivir # Elevated d-dimer US doppler LE negative for PE #Nicotine dependence Smoking cessation counseling #Alcohol dependence [facility] protocol Folic acid #Hypertension Continue home medications Monitor blood pressure closely #DM mellitus Lantus and lispro Monitor blood glucose as patient is on dexamethasone #Seizure disorder Continue antiepileptic medication #DVT prophylaxis-Lovenox #Discharge planning-Home. Will get a walk test today History Interval history: 07/18. Patient is having coughing spells. awaiting COVID-19 test. Remains on 4 L of oxygen. Pulmonology consulted for respiratory failure. ID on board. Febrile overnight. 07/19. On 6L oxygen. COVID-19 positive. On remdesivir and dexamethasone. Doppler LE ordered. 07/20. Doppler negative. Feels great. No complaints. Will get exercise oximetry. Hospitalist Physical - Physical exam Narrative exam: VITAL SIGNS: Reviewed. GENERAL: Awake HEAD: No signs of head trauma. EYES: Pupils are equal. Extraocular motions intact. MOUTH: Oropharynx is normal. NECK: No adenopathy, no JVD. CHEST: Rales CARDIAC: normal S1 and S2, without murmurs, gallops, or rubs. ABDOMEN: Soft, non tender and non distended. No rebound or guarding, and no masses palpated. Bowel Sounds normal. MUSCULOSKELETAL: No edema NEUROLOGIC EXAM: Alert and oriented x3. No focal neurologic deficits SKIN: No obvious lesions - Constitutional Vitals: Temp Pulse Resp BP Pulse Ox 97.9 F 71 18 119/74 93 07/20/20 04:51 07/20/20 04:51 07/20/20 04:51 07/20/20 04:51 07/20/20 08:18 HEART Score - HEART Score Troponin: Troponin T < 0.010 ng/mL (0.00-0.029) 07/17/20 11:41 Results - Labs CBC & Chem 7: 07/18/20 03:48 07/20/20 05:52 Labs: Laboratory Last Values WBC 4.2 K/mm3 (4.5-11.0) L 07/18/20 03:48 RBC 3.77 M/mm3 (3.65-5.03) 07/18/20 03:48 Hgb 11.8 gm/dl (11.8-15.2) 07/18/20 03:48 Hct 33.0 % (35.5-45.6) L 07/18/20 03:48 MCV 88 fl (84-94) 07/18/20 03:48 MCH 31 pg (28-32) 07/18/20 03:48 MCHC 36 % (32-34) H 07/18/20 03:48 RDW 13.7 % (13.2-15.2) 07/18/20 03:48 Plt Count 249 K/mm3 (140-440) 07/18/20 03:48 Lymph % (Auto) 7.9 % (13.4-35.0) L 07/18/20 03:48 [place] % (Auto) 6.4 % (0.0-7.3) 07/18/20 03:48 Eos % (Auto) 0.0 % (0.0-4.3) 07/18/20 03:48 Baso % (Auto) 0.1 % (0.0-1.8) 07/18/20 03:48 Lymph # (Auto) 0.3 K/mm3 (1.2-5.4) L 07/18/20 03:48 [place] # (Auto) 0.3 K/mm3 (0.0-0.8) 07/18/20 03:48 Eos # (Auto) 0.0 K/mm3 (0.0-0.4) 07/18/20 03:48 Baso # (Auto) 0.0 K/mm3 (0.0-0.1) 07/18/20 03:48 Seg Neutrophils % 85.6 % (40.0-70.0) H 07/18/20 03:48 Seg Neutrophils # 3.6 K/mm3 (1.8-7.7) 07/18/20 03:48 PT 12.9 Sec. (12.2-14.9) 07/17/20 11:41 INR 0.98 (0.87-1.13) 07/17/20 11:41 APTT 35.3 Sec. (24.2-36.6) 07/17/20 11:41 D-Dimer 1602.42 ng/mlDDU (0-234) H 07/19/20 06:49 Sodium 136 mmol/L (137-145) L 07/20/20 05:52 Potassium 3.8 mmol/L (3.6-5.0) 07/20/20 05:52 Chloride 100.9 mmol/L (98-107) 07/20/20 05:52 Carbon Dioxide 25 mmol/L (22-30) 07/20/20 05:52 Anion Gap 14 mmol/L 07/20/20 05:52 BUN 27 mg/dL (9-20) H 07/20/20 05:52 Creatinine 0.9 mg/dL (0.8-1.3) 07/20/20 05:52 Estimated GFR > 60 ml/min 07/20/20 05:52 BUN/Creatinine Ratio 30 % 07/20/20 05:52 Glucose 139 mg/dL (75-100) H 07/20/20 05:52 POC Glucose 133 mg/dL (70-105) H 07/19/20 21:15 Lactic Acid 1.10 mmol/L (0.7-2.0) 07/18/20 03:48 Calcium 9.3 mg/dL (8.4-10.2) 07/20/20 05:52 Phosphorus 3.30 mg/dL (2.5-4.5) 07/17/20 11:41 Magnesium 1.90 mg/dL (1.7-2.3) 07/17/20 11:41 Ferritin 967.0 ng/mL (30.0-300.0) H 07/19/20 06:49 Total Bilirubin 0.40 mg/dL (0.1-1.2) 07/20/20 05:52 AST 134 units/L (5-40) H 07/20/20 05:52 ALT 213 units/L (7-56) H 07/20/20 05:52 Alkaline Phosphatase 72 units/L (35-129) 07/20/20 05:52 Lactate Dehydrogenase 448 units/L (91-180) H 07/19/20 06:49 Troponin T < 0.010 ng/mL (0.00-0.029) 07/17/20 11:41 C-Reactive Protein 10.70 mg/dL (0.00-1.30) H 07/19/20 06:49 NT-Pro-B Natriuret Pep 113.4 pg/mL (0-450) 07/18/20 Unknown Total Protein 6.7 g/dL (6.3-8.2) 07/20/20 05:52 Albumin 3.4 g/dL (3.9-5) L 07/20/20 05:52 Albumin/Globulin Ratio 1.0 % 07/20/20 05:52 Procalcitonin 0.10 ng/mL (<0.15) 07/17/20 11:41 Salicylates < 0.3 mg/dL (2.8-20.0) L 07/17/20 11:41 Acetaminophen 5.0 ug/mL (10.0-30.0) L 07/17/20 11:41 Valproic Acid < 2.8 ug/mL (50-100) L 07/17/20 11:41 [place] 0.1 mmol/L (0.0-1.2) 07/17/20 11:41 Plasma/Serum Alcohol < 0.01 % (0-0.07) 07/17/20 11:41 Coronavirus (PCR) Positive (Negative) A 07/17/20 09:30 Microbiology: Microbiology 07/17/20 11:41 Peripheral/Venous Blood Culture - Preliminary NO GROWTH AFTER 48 HOURS 07/17/20 11:41 Peripheral/Venous Blood Culture - Preliminary NO GROWTH AFTER 48 HOURS [place]/IV: Voiding Method Toilet Active Medications - Current Medications Current Medications: Generic Name Dose Route Start Last Admin Trade Name Freq PRN Reason Stop Dose Admin Acetaminophen 650 mg 07/17/20 13:10 07/18/20 01:20 Acetaminophen 325 Mg Tab PO 650 mg Q4H PRN Administration Pain MILD(1-3)/Fever >100.5/RUCKER Albuterol 2.5 mg 07/17/20 13:10 Albuterol 2.5 Mg/3 Ml Nebu IH Q4HRT PRN Shortness Of Breath Ascorbic Acid 500 mg 07/17/20 22:00 07/19/20 22:06 Ascorbic Acid 500 Mg Tab PO 500 mg BID NICOL Administration Benzonatate 100 mg 07/18/20 22:00 07/20/20 05:42 Benzonatate 100 Mg Cap PO 100 mg Q8HR NICOL Administration Chlordiazepoxide HCl 50 mg 07/17/20 11:12 Chlordiazepoxide 25 Mg Cap PO Q1HR PRN CIWA-Ar 8-15 Cholecalciferol 1,000 unit 07/18/20 10:00 07/19/20 09:50 Cholecalciferol (Vit D3) 1000 Unit (25 Mcg) Tab PO 1,000 unit QDAY NICOL Administration Dexamethasone 6 mg 07/18/20 10:00 07/19/20 09:49 Dexamethasone 4 Mg/Ml Vial IV 07/26/20 10:01 6 mg DAILY NICOL Administration Enoxaparin Sodium 40 mg 07/19/20 22:00 07/19/20 22:06 Enoxaparin 40 Mg/0.4 Ml Inj SUB-Q 40 mg QDAY@2200 NICOL Administration Protocol Famotidine 10 mg 07/17/20 22:00 07/19/20 22:06 Famotidine 10 Mg Tab PO 10 mg BID NIOCL Administration Folic Acid 1 mg 07/17/20 13:14 07/19/20 09:49 Folic Acid 1 Mg Tab PO 1 mg QDAY NICOL Administration Guaifenesin 10 ml 07/18/20 01:00 07/19/20 16:34 Guaifenesin Dm 200/20 Mg Oral Liqd 10 Ml PO 10 ml Q4H PRN Administration Cough Hydromorphone HCl 0.25 mg 07/17/20 13:10 Hydromorphone 1 Mg/1 Ml Inj IV Q4H PRN Pain, Moderate (4-6) REMDESIVIR 100 mg/ Sodium 250 mls @ 500 mls/hr 07/18/20 21:00 07/20/20 01:55 Chloride IV 07/21/20 21:29 Infused Q24HR@2100 NICOL Infusion Lorazepam 2 mg 07/17/20 11:12 Lorazepam 2 Mg/Ml Vial IV Q1HR PRN CIWA-Ar 8-15 Lorazepam 4 mg 07/17/20 11:12 Lorazepam 2 Mg/Ml Vial IV Q1HR PRN CIWA-Ar 16-25 Lorazepam 4 mg 07/17/20 11:12 Lorazepam 2 Mg/Ml Vial IV Q15MIN PRN CIWA-Ar >25 Ondansetron HCl 4 mg 07/17/20 13:10 Ondansetron 4 Mg/2 Ml Inj IV Q8H PRN Nausea And Vomiting Sodium Chloride 10 ml 07/17/20 22:00 07/20/20 01:57 Sodium Chloride 0.9% 10 Ml Flush Syringe IV 10 ml BID NICOL Administration Sodium Chloride 10 ml 07/17/20 13:10 Sodium Chloride 0.9% 10 Ml Flush Syringe IV PRN PRN LINE FLUSH Sodium Chloride 50 ml 07/17/20 16:00 07/19/20 22:06 Sodium Chloride 0.9% 50 Ml Ivpb IV 07/21/20 21:01 50 ml Q24HR@2100 NICOL Administration Zinc Sulfate 220 mg 07/17/20 22:00 07/19/20 22:06 Zinc Sulfate 220 Mg Cap PO 220 mg BID NICOL Administration
--- NOTE | 2020-07-20 09:28 | Electrocardiograph Report ---
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
[2020-07-20] MEDS: FOLIC ACID 1 MG TAB PO SCH (09:53)
[2020-07-20] MEDS: ZINC SULFATE 220 MG CAP PO SCH ×2 (09:53→21:15)
[2020-07-20] MEDS: CHOLECALCIFEROL (VIT D3) 1000 UNIT (25 mcg) TAB PO SCH (09:53)
[2020-07-20] MEDS: ASCORBIC ACID 500 MG TAB PO SCH ×2 (09:53→21:16)
[2020-07-20] MEDS: FAMOTIDINE 10 MG TAB PO SCH ×2 (09:54→21:15)
[2020-07-20] MEDS: dexAMETHasone 4 MG/ML VIAL IV SCH (10:03)
--- NOTE | 2020-07-20 13:42 | Progress Note ---
Assessment and Plan Cultures: Blood culture no growth so far Covid PCR: Positive as outpatient, pending as inpatient. A/P: 50-year-old man past medical history hypertension, hyperlipidemia, alcohol dependence, seizures, diabetes, asthma admitted with COVID-19. #COVID-19 pneumonia: Patient presented with a week of symptoms, chest x-ray with diffuse bilateral infiltrates. Inflammatory markers elevated. #Acute hypoxemic respiratory failure: Likely secondary to COVID-19 infection. Currently on 4L NC #Diabetes: tight glycemic control for best outcomes. #Asthma #Leukopenia: likely secondary to COVID Recs: -Dexamethasone 6 mg IV/PO daily for 10 days -Remdesivir 200 mg IV q day x 1 followed by 100 mg IV q day x 4 days. D4 of 5 -Obtain q48-72h inflammatory markers - ferritin, Ddimer, CRP, LDH -Anticoagulation per hospital protocol -Proning as able Thank you for the consult, we will continue to follow. Huyen Tellez MD [facility] ([facility] O: [phone] F: [phone] Subjective Date of service: 07/20/20 Interval history: Afebrile, no acute change. Currently on 3 L nasal cannula. Objective - Exam Narrative Exam: Physical exam deferred to reduce risk of transmission of COVID-19. Please refer to primary team's note. - Constitutional Vitals: Vital Signs Temp Pulse Resp BP Pulse Ox 97.9 F 71 22 123/81 96 07/20/20 11:12 07/20/20 11:12 07/20/20 11:12 07/20/20 11:12 07/20/20 11:12 Temperature -Last 24 Hours Temperature 97.9 F Temperature 97.9 F Temperature 97.7 F Temperature 97.9 F - Labs CBC & Chem 7: 07/18/20 03:48 07/20/20 05:52 Labs: Abnormal lab results 07/19/20 07/19/20 07/20/20 Range/Units 17:20 21:15 05:52 Sodium 136 L (137-145) mmol/L BUN 27 H (9-20) mg/dL Glucose 139 H (75-100) mg/dL POC Glucose 155 H 133 H (70-105) mg/dL AST 134 H (5-40) units/L ALT 213 H (7-56) units/L Albumin 3.4 L (3.9-5) g/dL
--- NOTE | 2020-07-20 14:04 | Progress Note ---
Assessment and Plan 50 y/o male with acute respiratory failure secondary to COVID 19 07/20/20: Hold on any further lasix therapy. Steroids for a total of 10 days to end on the 28 based on MAY. Remdesivir for 5. Prone as tolerated. Will continue to follow. 1. Proning as tolerated during the day and sleep prone at night 2. Agree with steroids for 10 days 3. Remdesivir per ID. 4. Does not appear to be a candidate for Actemra 5. Keep as dry as possible Guarded prognosis. Subjective Date of service: 07/20/20 Interval history: Remains on 3 liters. Sats still in the low to mid 90's Objective Vital Signs - 12hr 07/20/20 07/20/20 07/20/20 04:51 08:18 11:12 Temperature 97.9 F 97.9 F Pulse Rate 71 71 Respiratory 18 22 Rate Blood Pressure 119/74 123/81 O2 Sat by Pulse 91 93 96 Oximetry CBC and BMP: 07/18/20 03:48 07/20/20 05:52 ABG, PT/INR, D-dimer: PT/INR, D-dimer PT 12.9 Sec. (12.2-14.9) 07/17/20 11:41 INR 0.98 (0.87-1.13) 07/17/20 11:41 D-Dimer 1602.42 ng/mlDDU (0-234) H 07/19/20 06:49 Abnormal lab findings: Abnormal Labs 07/17/20 07/17/20 07/17/20 09:30 11:41 11:41 WBC Hct MCHC Lymph % (Auto) [place] % (Auto) Lymph # (Auto) Seg Neutrophils % D-Dimer Sodium 134 L Chloride Carbon Dioxide 19 L BUN Glucose POC Glucose Ferritin AST ALT Lactate Dehydrogenase C-Reactive Protein Albumin 3.6 L Salicylates < 0.3 L Acetaminophen Valproic Acid < 2.8 L Coronavirus (PCR) Positive A 07/17/20 07/17/20 07/17/20 11:41 11:41 11:41 WBC Hct 34.7 L MCHC Lymph % (Auto) 9.5 L [place] % (Auto) 11.5 H Lymph # (Auto) 0.6 L Seg Neutrophils % 78.7 H D-Dimer 1683.35 H Sodium Chloride Carbon Dioxide BUN Glucose POC Glucose Ferritin AST ALT Lactate Dehydrogenase 391 H C-Reactive Protein 19.10 H Albumin Salicylates Acetaminophen Valproic Acid Coronavirus (PCR) 07/17/20 07/17/20 07/18/20 11:41 11:41 03:48 WBC 4.2 L Hct 33.0 L MCHC 36 H Lymph % (Auto) 7.9 L [place] % (Auto) Lymph # (Auto) 0.3 L Seg Neutrophils % 85.6 H D-Dimer Sodium Chloride Carbon Dioxide BUN Glucose POC Glucose Ferritin 694.9 H AST ALT Lactate Dehydrogenase C-Reactive Protein Albumin Salicylates Acetaminophen 5.0 L Valproic Acid Coronavirus (PCR) 07/18/20 07/18/20 07/19/20 03:48 23:08 06:49 WBC Hct MCHC Lymph % (Auto) [place] % (Auto) Lymph # (Auto) Seg Neutrophils % D-Dimer Sodium Chloride 108.0 H Carbon Dioxide 21 L BUN 21 H Glucose 150 H 126 H POC Glucose 151 H Ferritin AST 41 H 59 H ALT Lactate Dehydrogenase 448 H C-Reactive Protein 10.70 H Albumin 3.8 L 3.2 L Salicylates Acetaminophen Valproic Acid Coronavirus (PCR) 07/19/20 07/19/20 07/19/20 06:49 06:49 08:21 WBC Hct MCHC Lymph % (Auto) [place] % (Auto) Lymph # (Auto) Seg Neutrophils % D-Dimer 1602.42 H Sodium Chloride Carbon Dioxide BUN Glucose POC Glucose 119 H Ferritin 967.0 H AST ALT Lactate Dehydrogenase C-Reactive Protein Albumin Salicylates Acetaminophen Valproic Acid Coronavirus (PCR) 07/19/20 07/19/20 07/19/20 11:20 17:20 21:15 WBC Hct MCHC Lymph % (Auto) [place] % (Auto) Lymph # (Auto) Seg Neutrophils % D-Dimer Sodium Chloride Carbon Dioxide BUN Glucose POC Glucose 117 H 155 H 133 H Ferritin AST ALT Lactate Dehydrogenase C-Reactive Protein Albumin Salicylates Acetaminophen Valproic Acid Coronavirus (PCR) 07/20/20 05:52 WBC Hct MCHC Lymph % (Auto) [place] % (Auto) Lymph # (Auto) Seg Neutrophils % D-Dimer Sodium 136 L Chloride Carbon Dioxide BUN 27 H Glucose 139 H POC Glucose Ferritin AST 134 H ALT 213 H Lactate Dehydrogenase C-Reactive Protein Albumin 3.4 L Salicylates Acetaminophen Valproic Acid Coronavirus (PCR)
[2020-07-20] MEDS: ENOXAPARIN 40 MG/0.4 ML INJ SUB-Q SCH (21:16)
[2020-07-20] MEDS: SODIUM CHLORIDE 0.9% 50 ML IVPB IV SCH (21:16)
[2020-07-20] MEDS: REMDESIVIR 100 MG in SODIUM CHLORIDE 0.9% 250ML 250 ML IV SCH (21:16)
[2020-07-21] MEDS: BENZONATATE 100 MG CAP PO SCH ×3 (05:21→22:12)
[2020-07-21 08:33] LABS: C-Reactive Protein 3.9 mg/dL (0.00-1.30)
[2020-07-21] MEDS: CHOLECALCIFEROL (VIT D3) 1000 UNIT (25 mcg) TAB PO SCH (09:29)
[2020-07-21] MEDS: FOLIC ACID 1 MG TAB PO SCH (09:29)
[2020-07-21] MEDS: ASCORBIC ACID 500 MG TAB PO SCH ×2 (09:29→22:12)
[2020-07-21] MEDS: FAMOTIDINE 10 MG TAB PO SCH ×2 (09:29→22:12)
[2020-07-21] MEDS: ZINC SULFATE 220 MG CAP PO SCH ×2 (09:30→22:12)
[2020-07-21] MEDS: dexAMETHasone 4 MG/ML VIAL IV SCH (09:30)
--- NOTE | 2020-07-21 10:25 | Progress Note ---
Assessment and Plan Assessment and plan: #Acute upper respiratory failure Continue oxygen supplementation #Sepsis POA #COVID-19 infection Dexamethasone Antibiotics discontinued as procalcitonin is less than 0.25 Remdesivir ID and pulmonology evaluation Trend inflammatory markers #Elevated LFTs AST/ALT trending up. We will monitor Likely effect of remdesivir # Elevated d-dimer US doppler LE negative for PE #Nicotine dependence Smoking cessation counseling #Alcohol dependence CIOR protocol Folic acid #Hypertension Continue home medications Monitor blood pressure closely #DM mellitus Lantus and lispro Monitor blood glucose as patient is on dexamethasone #Seizure disorder Continue antiepileptic medication #DVT prophylaxis-Lovenox #Discharge planning-Home. Will most likely need oxygen at discharge History Interval history: 07/18. Patient is having coughing spells. awaiting COVID-19 test. Remains on 4 L of oxygen. Pulmonology consulted for respiratory failure. ID on board. May overnight. 07/19. On 6L oxygen. COVID-19 positive. On remdesivir and dexamethasone. Doppler LE ordered. 07/20. Doppler negative. Feels great. No complaints. He is oxygen level desaturated to low 80s with ambulation. 07/21. His oxygen level desaturated to low 80s with ambulation yesterday. Remains on 5 L of oxygen. Pulmonology and ID on board Hospitalist Physical - Physical exam Narrative exam: VITAL SIGNS: Reviewed. GENERAL: Awake HEAD: No signs of head trauma. EYES: Pupils are equal. Extraocular motions intact. MOUTH: Oropharynx is normal. NECK: No adenopathy, no JVD. CHEST: Rales CARDIAC: normal S1 and S2, without murmurs, gallops, or rubs. ABDOMEN: Soft, non tender and non distended. No rebound or guarding, and no masses palpated. Bowel Sounds normal. MUSCULOSKELETAL: No edema NEUROLOGIC EXAM: Alert and oriented x3. No focal neurologic deficits SKIN: No obvious lesions - Constitutional Vitals: Temp Pulse Resp BP Pulse Ox 98.4 F 91 H 18 120/77 91 07/21/20 04:54 07/21/20 04:54 07/21/20 04:54 07/21/20 04:54 07/21/20 09:47 HEART Score - HEART Score Troponin: Troponin T < 0.010 ng/mL (0.00-0.029) 07/17/20 11:41 Results - Labs CBC & Chem 7: 07/18/20 03:48 07/20/20 05:52 Labs: Laboratory Last Values WBC 4.2 K/mm3 (4.5-11.0) L 07/18/20 03:48 RBC 3.77 M/mm3 (3.65-5.03) 07/18/20 03:48 Hgb 11.8 gm/dl (11.8-15.2) 07/18/20 03:48 Hct 33.0 % (35.5-45.6) L 07/18/20 03:48 MCV 88 fl (84-94) 07/18/20 03:48 MCH 31 pg (28-32) 07/18/20 03:48 MCHC 36 % (32-34) H 07/18/20 03:48 RDW 13.7 % (13.2-15.2) 07/18/20 03:48 Plt Count 249 K/mm3 (140-440) 07/18/20 03:48 Lymph % (Auto) 7.9 % (13.4-35.0) L 07/18/20 03:48 [place] % (Auto) 6.4 % (0.0-7.3) 07/18/20 03:48 Eos % (Auto) 0.0 % (0.0-4.3) 07/18/20 03:48 Baso % (Auto) 0.1 % (0.0-1.8) 07/18/20 03:48 Lymph # (Auto) 0.3 K/mm3 (1.2-5.4) L 07/18/20 03:48 [place] # (Auto) 0.3 K/mm3 (0.0-0.8) 07/18/20 03:48 Eos # (Auto) 0.0 K/mm3 (0.0-0.4) 07/18/20 03:48 Baso # (Auto) 0.0 K/mm3 (0.0-0.1) 07/18/20 03:48 Seg Neutrophils % 85.6 % (40.0-70.0) H 07/18/20 03:48 Seg Neutrophils # 3.6 K/mm3 (1.8-7.7) 07/18/20 03:48 PT 12.9 Sec. (12.2-14.9) 07/17/20 11:41 INR 0.98 (0.87-1.13) 07/17/20 11:41 APTT 35.3 Sec. (24.2-36.6) 07/17/20 11:41 D-Dimer 1081.57 ng/mlDDU (0-234) H 07/21/20 07:24 Sodium 136 mmol/L (137-145) L 07/20/20 05:52 Potassium 3.8 mmol/L (3.6-5.0) 07/20/20 05:52 Chloride 100.9 mmol/L (98-107) 07/20/20 05:52 Carbon Dioxide 25 mmol/L (22-30) 07/20/20 05:52 Anion Gap 14 mmol/L 07/20/20 05:52 BUN 27 mg/dL (9-20) H 07/20/20 05:52 Creatinine 0.9 mg/dL (0.8-1.3) 07/20/20 05:52 Estimated GFR > 60 ml/min 07/20/20 05:52 BUN/Creatinine Ratio 30 % 07/20/20 05:52 Glucose 139 mg/dL (75-100) H 07/20/20 05:52 POC Glucose 114 mg/dL (70-105) H 07/21/20 07:44 Lactic Acid 1.10 mmol/L (0.7-2.0) 07/18/20 03:48 Calcium 9.3 mg/dL (8.4-10.2) 07/20/20 05:52 Phosphorus 3.30 mg/dL (2.5-4.5) 07/17/20 11:41 Magnesium 1.90 mg/dL (1.7-2.3) 07/17/20 11:41 Ferritin 472.5 ng/mL (30.0-300.0) H 07/21/20 07:24 Total Bilirubin 0.40 mg/dL (0.1-1.2) 07/20/20 05:52 AST 134 units/L (5-40) H 07/20/20 05:52 ALT 213 units/L (7-56) H 07/20/20 05:52 Alkaline Phosphatase 72 units/L (35-129) 07/20/20 05:52 Lactate Dehydrogenase 361 units/L (91-180) H 07/21/20 07:24 Troponin T < 0.010 ng/mL (0.00-0.029) 07/17/20 11:41 C-Reactive Protein 3.90 mg/dL (0.00-1.30) H 07/21/20 07:24 NT-Pro-B Natriuret Pep 113.4 pg/mL (0-450) 07/18/20 Unknown Total Protein 6.7 g/dL (6.3-8.2) 07/20/20 05:52 Albumin 3.4 g/dL (3.9-5) L 07/20/20 05:52 Albumin/Globulin Ratio 1.0 % 07/20/20 05:52 Procalcitonin 0.10 ng/mL (<0.15) 07/17/20 11:41 Salicylates < 0.3 mg/dL (2.8-20.0) L 07/17/20 11:41 Acetaminophen 5.0 ug/mL (10.0-30.0) L 07/17/20 11:41 Valproic Acid < 2.8 ug/mL (50-100) L 07/17/20 11:41 [place]in 0.1 mmol/L (0.0-1.2) 07/17/20 11:41 Plasma/Serum Alcohol < 0.01 % (0-0.07) 07/17/20 11:41 Coronavirus (PCR) Positive (Negative) A 07/17/20 09:30 Microbiology: Microbiology 07/17/20 11:41 Peripheral/Venous Blood Culture - Preliminary NO GROWTH AFTER 72 HOURS 07/17/20 11:41 Peripheral/Venous Blood Culture - Preliminary NO GROWTH AFTER 72 HOURS Young/IV: Voiding Method Toilet Active Medications - Current Medications Current Medications: Generic Name Dose Route Start Last Admin Trade Name Freq PRN Reason Stop Dose Admin Acetaminophen 650 mg 07/17/20 13:10 07/18/20 01:20 Acetaminophen 325 Mg Tab PO 650 mg Q4H PRN Administration Pain MILD(1-3)/Fever >100.5/RUCKER Albuterol 2.5 mg 07/17/20 13:10 Albuterol 2.5 Mg/3 Ml Nebu IH Q4HRT PRN Shortness Of Breath Ascorbic Acid 500 mg 07/17/20 22:00 07/21/20 09:29 Ascorbic Acid 500 Mg Tab PO 500 mg BID NICOL Administration Benzonatate 100 mg 07/18/20 22:00 07/21/20 05:21 Benzonatate 100 Mg Cap PO 100 mg Q8HR NICOL Administration Chlordiazepoxide HCl 50 mg 07/17/20 11:12 Chlordiazepoxide 25 Mg Cap PO Q1HR PRN CIWA-Ar 8-15 Cholecalciferol 1,000 unit 07/18/20 10:00 07/21/20 09:29 Cholecalciferol (Vit D3) 1000 Unit (25 Mcg) Tab PO 1,000 unit QDAY NICOL Administration Dexamethasone 6 mg 07/18/20 10:00 07/21/20 09:30 Dexamethasone 4 Mg/Ml Vial IV 07/26/20 10:01 6 mg DAILY NICOL Administration Enoxaparin Sodium 40 mg 07/19/20 22:00 07/20/20 21:16 Enoxaparin 40 Mg/0.4 Ml Inj SUB-Q 40 mg QDAY@2200 [facility] Administration Protocol Famotidine 10 mg 07/17/20 22:00 07/21/20 09:29 Famotidine 10 Mg Tab PO 10 mg BID NICOL Administration Folic Acid 1 mg 07/17/20 13:14 07/21/20 09:29 Folic Acid 1 Mg Tab PO 1 mg QDAY NICOL Administration Guaifenesin 10 ml 07/18/20 01:00 07/19/20 16:34 Guaifenesin Dm 200/20 Mg Oral Liqd 10 Ml PO 10 ml Q4H PRN Administration Cough Hydromorphone HCl 0.25 mg 07/17/20 13:10 Hydromorphone 1 Mg/1 Ml Inj IV Q4H PRN Pain, Moderate (4-6) REMDESIVIR 100 mg/ Sodium 250 mls @ 500 mls/hr 07/18/20 21:00 07/20/20 21:16 Chloride IV 07/21/20 21:29 500 mls/hr Q24HR@2100 NICOL Administration Lorazepam 2 mg 07/17/20 11:12 Lorazepam 2 Mg/Ml Vial IV Q1HR PRN CIWA-Ar 8-15 Lorazepam 4 mg 07/17/20 11:12 Lorazepam 2 Mg/Ml Vial IV Q1HR PRN CIWA-Ar 16-25 Lorazepam 4 mg 07/17/20 11:12 Lorazepam 2 Mg/Ml Vial IV Q15MIN PRN CIWA-Ar >25 Ondansetron HCl 4 mg 07/17/20 13:10 Ondansetron 4 Mg/2 Ml Inj IV Q8H PRN Nausea And Vomiting Sodium Chloride 10 ml 07/17/20 22:00 07/21/20 09:30 Sodium Chloride 0.9% 10 Ml Flush Syringe IV 10 ml BID NICOL Administration Sodium Chloride 10 ml 07/17/20 13:10 Sodium Chloride 0.9% 10 Ml Flush Syringe IV PRN PRN LINE FLUSH Sodium Chloride 50 ml 07/17/20 16:00 07/20/20 21:16 Sodium Chloride 0.9% 50 Ml Ivpb IV 07/21/20 21:01 50 ml Q24HR@2100 NICOL Administration Zinc Sulfate 220 mg 07/17/20 22:00 07/21/20 09:30 Zinc Sulfate 220 Mg Cap PO 220 mg BID NICOL Administration
--- NOTE | 2020-07-21 10:33 | Progress Note ---
Assessment and Plan Cultures: Blood culture no growth so far Covid PCR: Positive as outpatient, pending as inpatient. A/P: 50-year-old man past medical history hypertension, hyperlipidemia, alcohol dependence, seizures, diabetes, asthma admitted with COVID-19. #COVID-19 pneumonia: Patient presented with a week of symptoms, chest x-ray with diffuse bilateral infiltrates. Inflammatory markers elevated. #Acute hypoxemic respiratory failure: Likely secondary to COVID-19 infection. Currently on 6L NC #Diabetes: tight glycemic control for best outcomes. #Asthma #Leukopenia: likely secondary to COVID Recs: -Dexamethasone 6 mg IV/PO daily for 10 days -Remdesivir 200 mg IV q day x 1 followed by 100 mg IV q day x 4 days. D5 of 5 -Obtain q48-72h inflammatory markers - ferritin, Ddimer, CRP, LDH -Anticoagulation per hospital protocol -Proning as able Thank you for the consult, we will continue to follow. Huyen Tellez MD [facility] ([facility] O: [phone] F: [phone] Subjective Date of service: 07/21/20 Interval history: Afebrile, no acute changes. Currently on 6 L nasal cannula. Objective - Exam Narrative Exam: Physical exam deferred to reduce risk of transmission of COVID-19. Please refer to primary team's note. - Constitutional Vitals: Vital Signs Temp Pulse Resp BP Pulse Ox 98.4 F 91 H 18 120/77 91 07/21/20 04:54 07/21/20 04:54 07/21/20 04:54 07/21/20 04:54 07/21/20 09:47 Temperature -Last 24 Hours Temperature 98.4 F Temperature 98.8 F Temperature 98.8 F Temperature 98.7 F Temperature 98.1 F Temperature 97.9 F - Labs CBC & Chem 7: 07/18/20 03:48 07/20/20 05:52 Labs: Abnormal lab results 07/20/20 07/20/20 07/20/20 Range/Units 11:16 17:07 22:02 D-Dimer (0-234) ng/mlDDU POC Glucose 109 H 157 H 117 H (70-105) mg/dL Ferritin (30.0-300.0) ng/mL Lactate Dehydrogenase (91-180) units/L C-Reactive Protein (0.00-1.30) mg/dL 07/21/20 07/21/20 07/21/20 Range/Units 07:24 07:24 07:24 D-Dimer 1081.57 H (0-234) ng/mlDDU POC Glucose (70-105) mg/dL Ferritin 472.5 H (30.0-300.0) ng/mL Lactate Dehydrogenase 361 H (91-180) units/L C-Reactive Protein 3.90 H (0.00-1.30) mg/dL 07/21/20 Range/Units 07:44 D-Dimer (0-234) ng/mlDDU POC Glucose 114 H (70-105) mg/dL Ferritin (30.0-300.0) ng/mL Lactate Dehydrogenase (91-180) units/L C-Reactive Protein (0.00-1.30) mg/dL
[2020-07-21] MEDS: HYDROmorphone 1 MG/1 ML INJ IV PRN (10:56)
--- NOTE | 2020-07-21 13:09 | Progress Note ---
Assessment and Plan 50 y/o male with acute respiratory failure secondary to COVID 19 07/21/20: Will give lasix today IV . Prone as tolerated. Continue steroids and Remdesivir. Guarded prognosis. Not ready for discharge. 07/20/20: Hold on any further lasix therapy. Steroids for a total of 10 days to end on the 28 based on MAY. Remdesivir for 5. Prone as tolerated. Will continue to follow. 1. Proning as tolerated during the day and sleep prone at night 2. Agree with steroids for 10 days 3. Remdesivir per ID. 4. Does not appear to be a candidate for Actemra 5. Keep as dry as possible Guarded prognosis. Subjective Date of service: 07/21/20 Interval history: O2 requirement increased overnight/am to 6 liters with marginal sats. patient walked yesterday but took six liters to keep sat above 88. Maybe the 3 liters documented earlier on yesterday were incorrect. Objective Vital Signs - 12hr 07/21/20 07/21/20 07/21/20 04:54 09:47 11:46 Temperature 98.4 F 98.0 F Pulse Rate 91 H 84 Respiratory 18 22 Rate Blood Pressure 120/77 Blood Pressure 110/77 [Right] O2 Sat by Pulse 89 91 96 Oximetry CBC and BMP: 07/18/20 03:48 07/20/20 05:52 ABG, PT/INR, D-dimer: PT/INR, D-dimer PT 12.9 Sec. (12.2-14.9) 07/17/20 11:41 INR 0.98 (0.87-1.13) 07/17/20 11:41 D-Dimer 1081.57 ng/mlDDU (0-234) H 07/21/20 07:24 Abnormal lab findings: Abnormal Labs 07/17/20 07/17/20 07/17/20 09:30 11:41 11:41 WBC Hct MCHC Lymph % (Auto) [place] % (Auto) Lymph # (Auto) Seg Neutrophils % D-Dimer Sodium 134 L Chloride Carbon Dioxide 19 L BUN Glucose POC Glucose Ferritin AST ALT Lactate Dehydrogenase C-Reactive Protein Albumin 3.6 L Salicylates < 0.3 L Acetaminophen Valproic Acid < 2.8 L Coronavirus (PCR) Positive A 07/17/20 07/17/20 07/17/20 11:41 11:41 11:41 WBC Hct 34.7 L MCHC Lymph % (Auto) 9.5 L [place] % (Auto) 11.5 H Lymph # (Auto) 0.6 L Seg Neutrophils % 78.7 H D-Dimer 1683.35 H Sodium Chloride Carbon Dioxide BUN Glucose POC Glucose Ferritin AST ALT Lactate Dehydrogenase 391 H C-Reactive Protein 19.10 H Albumin Salicylates Acetaminophen Valproic Acid Coronavirus (PCR) 07/17/20 07/17/20 07/18/20 11:41 11:41 03:48 WBC 4.2 L Hct 33.0 L MCHC 36 H Lymph % (Auto) 7.9 L [place] % (Auto) Lymph # (Auto) 0.3 L Seg Neutrophils % 85.6 H D-Dimer Sodium Chloride Carbon Dioxide BUN Glucose POC Glucose Ferritin 694.9 H AST ALT Lactate Dehydrogenase C-Reactive Protein Albumin Salicylates Acetaminophen 5.0 L Valproic Acid Coronavirus (PCR) 07/18/20 07/18/20 07/19/20 03:48 23:08 06:49 WBC Hct MCHC Lymph % (Auto) [place] % (Auto) Lymph # (Auto) Seg Neutrophils % D-Dimer Sodium Chloride 108.0 H Carbon Dioxide 21 L BUN 21 H Glucose 150 H 126 H POC Glucose 151 H Ferritin AST 41 H 59 H ALT Lactate Dehydrogenase 448 H C-Reactive Protein 10.70 H Albumin 3.8 L 3.2 L Salicylates Acetaminophen Valproic Acid Coronavirus (PCR) 07/19/20 07/19/20 07/19/20 06:49 06:49 08:21 WBC Hct MCHC Lymph % (Auto) [place] % (Auto) Lymph # (Auto) Seg Neutrophils % D-Dimer 1602.42 H Sodium Chloride Carbon Dioxide BUN Glucose POC Glucose 119 H Ferritin 967.0 H AST ALT Lactate Dehydrogenase C-Reactive Protein Albumin Salicylates Acetaminophen Valproic Acid Coronavirus (PCR) 07/19/20 07/19/20 07/19/20 11:20 17:20 21:15 WBC Hct MCHC Lymph % (Auto) [place] % (Auto) Lymph # (Auto) Seg Neutrophils % D-Dimer Sodium Chloride Carbon Dioxide BUN Glucose POC Glucose 117 H 155 H 133 H Ferritin AST ALT Lactate Dehydrogenase C-Reactive Protein Albumin Salicylates Acetaminophen Valproic Acid Coronavirus (PCR) 04/07/20/20 07/20/20 05:52 11:16 17:07 WBC Hct MCHC Lymph % (Auto) [place] % (Auto) Lymph # (Auto) Seg Neutrophils % D-Dimer Sodium 136 L Chloride Carbon Dioxide BUN 27 H Glucose 139 H POC Glucose 109 H 157 H Ferritin AST 134 H ALT 213 H Lactate Dehydrogenase C-Reactive Protein Albumin 3.4 L Salicylates Acetaminophen Valproic Acid Coronavirus (PCR) 07/20/20 07/21/20 07/21/20 22:02 07:24 07:24 WBC Hct MCHC Lymph % (Auto) [place] % (Auto) Lymph # (Auto) Seg Neutrophils % D-Dimer 1081.57 H Sodium Chloride Carbon Dioxide BUN Glucose POC Glucose 117 H Ferritin 472.5 H AST ALT Lactate Dehydrogenase C-Reactive Protein Albumin Salicylates Acetaminophen Valproic Acid Coronavirus (PCR) 07/21/20 07/21/20 07:24 07:44 WBC Hct MCHC Lymph % (Auto) [place] % (Auto) Lymph # (Auto) Seg Neutrophils % D-Dimer Sodium Chloride Carbon Dioxide BUN Glucose POC Glucose 114 H Ferritin AST ALT Lactate Dehydrogenase 361 H C-Reactive Protein 3.90 H Albumin Salicylates Acetaminophen Valproic Acid Coronavirus (PCR)
[2020-07-21] MEDS ORDERED: FUROSEMIDE 20 MG/2 ML INJ IV NR (13:10)
[2020-07-21] MEDS: REMDESIVIR 100 MG in SODIUM CHLORIDE 0.9% 250ML 250 ML IV SCH (22:11)
[2020-07-21] MEDS: ENOXAPARIN 40 MG/0.4 ML INJ SUB-Q SCH (22:11)
[2020-07-21] MEDS: SODIUM CHLORIDE 0.9% 50 ML IVPB IV SCH (22:12)
[2020-07-22] MEDS: BENZONATATE 100 MG CAP PO SCH ×3 (07:06→21:42)
[2020-07-22] MEDS: CHOLECALCIFEROL (VIT D3) 1000 UNIT (25 mcg) TAB PO SCH (10:06)
[2020-07-22] MEDS: ASCORBIC ACID 500 MG TAB PO SCH ×2 (10:06→21:42)
[2020-07-22] MEDS: dexAMETHasone 4 MG/ML VIAL IV SCH (10:06)
[2020-07-22] MEDS: FAMOTIDINE 10 MG TAB PO SCH ×2 (10:06→21:42)
[2020-07-22] MEDS: FOLIC ACID 1 MG TAB PO SCH (10:06)
--- NOTE | 2020-07-22 10:07 | Progress Note ---
Assessment and Plan Assessment and plan: #Acute upper respiratory failure Continue oxygen supplementation #Sepsis POA #COVID-19 infection Dexamethasone Antibiotics discontinued as procalcitonin is less than 0.25 Remdesivir ID and pulmonology evaluation Trend inflammatory markers #Elevated LFTs AST/ALT trending up. We will monitor Likely effect of remdesivir # Elevated d-dimer US doppler LE negative for PE #Nicotine dependence Smoking cessation counseling #Alcohol dependence CIMT protocol Folic acid #Hypertension Continue home medications Monitor blood pressure closely #DM mellitus Lantus and lispro Monitor blood glucose as patient is on dexamethasone #Seizure disorder Continue antiepileptic medication #DVT prophylaxis-Lovenox #Discharge planning-Home. Will most likely need oxygen at discharge History Interval history: 07/18. Patient is having coughing spells. awaiting COVID-19 test. Remains on 4 L of oxygen. Pulmonology consulted for respiratory failure. ID on board. May overnight. 07/19. On 6L oxygen. COVID-19 positive. On remdesivir and dexamethasone. Doppler LE ordered. 07/20. Doppler negative. Feels great. No complaints. He is oxygen level desaturated to low 80s with ambulation. 07/21. His oxygen level desaturated to low 80s with ambulation yesterday. Remains on 5 L of oxygen. Pulmonology and ID on board 07/22. He feels great today. Remains on 5 L of oxygen. Pulmonology and ID on board Hospitalist Physical - Physical exam Narrative exam: VITAL SIGNS: Reviewed. GENERAL: Awake HEAD: No signs of head trauma. EYES: Pupils are equal. Extraocular motions intact. MOUTH: Oropharynx is normal. NECK: No adenopathy, no JVD. CHEST: Rales CARDIAC: normal S1 and S2, without murmurs, gallops, or rubs. ABDOMEN: Soft, non tender and non distended. No rebound or guarding, and no masses palpated. Bowel Sounds normal. MUSCULOSKELETAL: No edema NEUROLOGIC EXAM: Alert and oriented x3. No focal neurologic deficits SKIN: No obvious lesions - Constitutional Vitals: Temp Pulse Resp BP Pulse Ox 97.9 F 68 17 110/76 97 07/22/20 04:33 07/22/20 04:33 07/22/20 04:33 07/22/20 04:33 07/22/20 04:33 HEART Score - HEART Score Troponin: Troponin T < 0.010 ng/mL (0.00-0.029) 07/17/20 11:41 Results - Labs CBC & Chem 7: 07/18/20 03:48 07/20/20 05:52 Labs: Laboratory Last Values WBC 4.2 K/mm3 (4.5-11.0) L 07/18/20 03:48 RBC 3.77 M/mm3 (3.65-5.03) 07/18/20 03:48 Hgb 11.8 gm/dl (11.8-15.2) 07/18/20 03:48 Hct 33.0 % (35.5-45.6) L 07/18/20 03:48 MCV 88 fl (84-94) 07/18/20 03:48 MCH 31 pg (28-32) 07/18/20 03:48 MCHC 36 % (32-34) H 07/18/20 03:48 RDW 13.7 % (13.2-15.2) 07/18/20 03:48 Plt Count 249 K/mm3 (140-440) 07/18/20 03:48 Lymph % (Auto) 7.9 % (13.4-35.0) L 07/18/20 03:48 [place] % (Auto) 6.4 % (0.0-7.3) 07/18/20 03:48 Eos % (Auto) 0.0 % (0.0-4.3) 07/18/20 03:48 Baso % (Auto) 0.1 % (0.0-1.8) 07/18/20 03:48 Lymph # (Auto) 0.3 K/mm3 (1.2-5.4) L 07/18/20 03:48 [place] # (Auto) 0.3 K/mm3 (0.0-0.8) 07/18/20 03:48 Eos # (Auto) 0.0 K/mm3 (0.0-0.4) 07/18/20 03:48 Baso # (Auto) 0.0 K/mm3 (0.0-0.1) 07/18/20 03:48 Seg Neutrophils % 85.6 % (40.0-70.0) H 07/18/20 03:48 Seg Neutrophils # 3.6 K/mm3 (1.8-7.7) 07/18/20 03:48 PT 12.9 Sec. (12.2-14.9) 07/17/20 11:41 INR 0.98 (0.87-1.13) 07/17/20 11:41 APTT 35.3 Sec. (24.2-36.6) 07/17/20 11:41 D-Dimer 1081.57 ng/mlDDU (0-234) H 07/21/20 07:24 Sodium 136 mmol/L (137-145) L 07/20/20 05:52 Potassium 3.8 mmol/L (3.6-5.0) 07/20/20 05:52 Chloride 100.9 mmol/L (98-107) 07/20/20 05:52 Carbon Dioxide 25 mmol/L (22-30) 07/20/20 05:52 Anion Gap 14 mmol/L 07/20/20 05:52 BUN 27 mg/dL (9-20) H 07/20/20 05:52 Creatinine 0.9 mg/dL (0.8-1.3) 07/20/20 05:52 Estimated GFR > 60 ml/min 07/20/20 05:52 BUN/Creatinine Ratio 30 % 07/20/20 05:52 Glucose 139 mg/dL (75-100) H 07/20/20 05:52 POC Glucose 153 mg/dL (70-105) H 07/22/20 08:02 Lactic Acid 1.10 mmol/L (0.7-2.0) 07/18/20 03:48 Calcium 9.3 mg/dL (8.4-10.2) 07/20/20 05:52 Phosphorus 3.30 mg/dL (2.5-4.5) 07/17/20 11:41 Magnesium 1.90 mg/dL (1.7-2.3) 07/17/20 11:41 Ferritin 472.5 ng/mL (30.0-300.0) H 07/21/20 07:24 Total Bilirubin 0.40 mg/dL (0.1-1.2) 07/20/20 05:52 AST 134 units/L (5-40) H 07/20/20 05:52 ALT 213 units/L (7-56) H 07/20/20 05:52 Alkaline Phosphatase 72 units/L (35-129) 07/20/20 05:52 Lactate Dehydrogenase 361 units/L (91-180) H 07/21/20 07:24 Troponin T < 0.010 ng/mL (0.00-0.029) 07/17/20 11:41 C-Reactive Protein 3.90 mg/dL (0.00-1.30) H 07/21/20 07:24 NT-Pro-B Natriuret Pep 113.4 pg/mL (0-450) 07/18/20 Unknown Total Protein 6.7 g/dL (6.3-8.2) 07/20/20 05:52 Albumin 3.4 g/dL (3.9-5) L 07/20/20 05:52 Albumin/Globulin Ratio 1.0 % 07/20/20 05:52 Procalcitonin 0.10 ng/mL (<0.15) 07/17/20 11:41 Salicylates < 0.3 mg/dL (2.8-20.0) L 07/17/20 11:41 Acetaminophen 5.0 ug/mL (10.0-30.0) L 07/17/20 11:41 Valproic Acid < 2.8 ug/mL (50-100) L 07/17/20 11:41 [place] 0.1 mmol/L (0.0-1.2) 07/17/20 11:41 Plasma/Serum Alcohol < 0.01 % (0-0.07) 07/17/20 11:41 Coronavirus (PCR) Positive (Negative) A 07/17/20 09:30 Microbiology: Microbiology 07/17/20 11:41 Peripheral/Venous Blood Culture - Preliminary NO GROWTH AFTER 4 DAYS 07/17/20 11:41 Peripheral/Venous Blood Culture - Preliminary NO GROWTH AFTER 4 DAYS Young/IV: Voiding Method Toilet Active Medications - Current Medications Current Medications: Generic Name Dose Route Start Last Admin Trade Name Freq PRN Reason Stop Dose Admin Acetaminophen 650 mg 07/17/20 13:10 07/18/20 01:20 Acetaminophen 325 Mg Tab PO 650 mg Q4H PRN Administration Pain MILD(1-3)/Fever >100.5/RUCKER Albuterol 2.5 mg 07/17/20 13:10 Albuterol 2.5 Mg/3 Ml Nebu IH Q4HRT PRN Shortness Of Breath Ascorbic Acid 500 mg 07/17/20 22:00 07/21/20 22:12 Ascorbic Acid 500 Mg Tab PO 500 mg BID NICOL Administration Benzonatate 100 mg 07/18/20 22:00 07/22/20 07:06 Benzonatate 100 Mg Cap PO 100 mg Q8HR NICOL Administration Chlordiazepoxide HCl 50 mg 07/17/20 11:12 Chlordiazepoxide 25 Mg Cap PO Q1HR PRN CIWA-Ar 8-15 Cholecalciferol 1,000 unit 07/18/20 10:00 07/21/20 09:29 Cholecalciferol (Vit D3) 1000 Unit (25 Mcg) Tab PO 1,000 unit QDAY NICOL Administration Dexamethasone 6 mg 07/18/20 10:00 07/21/20 09:30 Dexamethasone 4 Mg/Ml Vial IV 07/26/20 10:01 6 mg DAILY NICOL Administration Enoxaparin Sodium 40 mg 07/19/20 22:00 07/21/20 22:11 Enoxaparin 40 Mg/0.4 Ml Inj SUB-Q 40 mg QDAY@2200 NICOL Administration Protocol Famotidine 10 mg 07/17/20 22:00 07/21/20 22:12 Famotidine 10 Mg Tab PO 10 mg BID NICOL Administration Folic Acid 1 mg 07/17/20 13:14 07/21/20 09:29 Folic Acid 1 Mg Tab PO 1 mg QDAY NICOL Administration Guaifenesin 10 ml 07/18/20 01:00 07/19/20 16:34 Guaifenesin Dm 200/20 Mg Oral Liqd 10 Ml PO 10 ml Q4H PRN Administration Cough Hydromorphone HCl 0.25 mg 07/17/20 13:10 07/21/20 10:56 Hydromorphone 1 Mg/1 Ml Inj IV 0.25 mg Q4H PRN Administration Pain, Moderate (4-6) Lorazepam 2 mg 07/17/20 11:12 Lorazepam 2 Mg/Ml Vial IV Q1HR PRN CIWA-Ar 8-15 Lorazepam 4 mg 07/17/20 11:12 Lorazepam 2 Mg/Ml Vial IV Q1HR PRN CIWA-Ar 16-25 Lorazepam 4 mg 07/17/20 11:12 Lorazepam 2 Mg/Ml Vial IV Q15MIN PRN CIWA-Ar >25 Ondansetron HCl 4 mg 07/17/20 13:10 Ondansetron 4 Mg/2 Ml Inj IV Q8H PRN Nausea And Vomiting Sodium Chloride 10 ml 07/17/20 22:00 07/21/20 22:12 Sodium Chloride 0.9% 10 Ml Flush Syringe IV 10 ml BID NICOL Administration Sodium Chloride 10 ml 07/17/20 13:10 Sodium Chloride 0.9% 10 Ml Flush Syringe IV PRN PRN LINE FLUSH Zinc Sulfate 220 mg 07/17/20 22:00 07/21/20 22:12 Zinc Sulfate 220 Mg Cap PO 220 mg BID NICOL Administration
[2020-07-22] MEDS: ZINC SULFATE 220 MG CAP PO SCH ×2 (10:08→21:43)
[2020-07-22] MEDS: HYDROmorphone 1 MG/1 ML INJ IV PRN (10:08)
--- NOTE | 2020-07-22 18:23 | Progress Note ---
Assessment and Plan Cultures: Blood culture no growth so far Covid PCR: Positive as outpatient, pending as inpatient. A/P: 50-year-old man past medical history hypertension, hyperlipidemia, alcohol dependence, seizures, diabetes, asthma admitted with COVID-19. #COVID-19 pneumonia: Patient presented with a week of symptoms, chest x-ray with diffuse bilateral infiltrates. Inflammatory markers elevated. #Acute hypoxemic respiratory failure: Likely secondary to COVID-19 infection. Currently on 5L NC #Diabetes: tight glycemic control for best outcomes. #Asthma #Leukopenia: likely secondary to COVID Recs: -Dexamethasone 6 mg IV/PO daily for 10 days -Completed remdesivir. -Obtain q48-72h inflammatory markers - ferritin, Ddimer, CRP, LDH -Anticoagulation per hospital protocol -Proning as able Recommend 6-minute walk test prior to discharge Thank you for the consult, we will sign off. Please call if questions. Huyen Tellez MD [facility] ([facility]) O: [phone] F: [phone] Subjective Date of service: 07/22/20 Interval history: Afebrile, no acute change. Currently on 5 L nasal cannula. Objective - Exam Narrative Exam: Physical exam deferred to reduce risk of transmission of COVID-19. Please refer to primary team's note. - Constitutional Vitals: Vital Signs Temp Pulse Resp BP Pulse Ox 98.5 F 89 19 105/64 95 07/22/20 11:39 07/22/20 11:39 07/22/20 11:39 07/22/20 11:39 07/22/20 11:39 Temperature -Last 24 Hours Temperature 98.5 F Temperature 97.9 F Temperature 98.1 F - Labs CBC & Chem 7: 07/18/20 03:48 07/20/20 05:52 Labs: Abnormal lab results 07/21/20 07/22/20 Range/Units 22:29 08:02 POC Glucose 120 H 153 H (70-105) mg/dL
[2020-07-22] MEDS: ENOXAPARIN 40 MG/0.4 ML INJ SUB-Q SCH (21:43)
[2020-07-23] MEDS: BENZONATATE 100 MG CAP PO SCH ×3 (05:46→21:59)
--- NOTE | 2020-07-23 08:13 | Progress Note ---
Assessment and Plan 50 y/o male with acute respiratory failure secondary to COVID 19 07/23/20: Lasix today. Continue to wean FiO2 for sats >88%. Prone as tolerated during the day and sleep prone at night. Continue steroids for a total of 10 days. 07/21/20: Will give lasix today IV . Prone as tolerated. Continue steroids and Remdesivir. Guarded prognosis. Not ready for discharge. 07/20/20: Hold on any further lasix therapy. Steroids for a total of 10 days to end on the based on MAY. Remdesivir for 5. Prone as tolerated. Will continue to follow. 1. Proning as tolerated during the day and sleep prone at night 2. Agree with steroids for 10 days 3. Remdesivir per ID. 4. Does not appear to be a candidate for Actemra 5. Keep as dry as possible Guarded prognosis. Subjective Date of service: 07/23/20 Interval history: No acute events. Down to 4 liters NC. Objective Vital Signs - 12hr 07/22/20 07/22/20 07/22/20 21:17 22:00 22:06 Temperature 97.9 F Pulse Rate 78 Pulse Rate [ 80 Right Radial] Respiratory 20 Rate Blood Pressure 125/76 O2 Sat by Pulse 96 92 91 Oximetry 07/23/20 03:55 Temperature 97.8 F Pulse Rate Pulse Rate [ Right Radial] Respiratory 16 Rate Blood Pressure 113/75 O2 Sat by Pulse Oximetry CBC and BMP: 07/18/20 03:48 07/20/20 05:52 ABG, PT/INR, D-dimer: PT/INR, D-dimer PT 12.9 Sec. (12.2-14.9) 07/17/20 11:41 INR 0.98 (0.87-1.13) 07/17/20 11:41 D-Dimer 1081.57 ng/mlDDU (0-234) H 07/21/20 07:24 Abnormal lab findings: Abnormal Labs 07/17/20 07/17/20 07/17/20 09:30 11:41 11:41 WBC Hct MCHC Lymph % (Auto) [place] % (Auto) Lymph # (Auto) Seg Neutrophils % D-Dimer Sodium 134 L Chloride Carbon Dioxide 19 L BUN Glucose POC Glucose Ferritin AST ALT Lactate Dehydrogenase C-Reactive Protein Albumin 3.6 L Salicylates < 0.3 L Acetaminophen Valproic Acid < 2.8 L Coronavirus (PCR) Positive A 07/17/20 07/17/20 07/17/20 11:41 11:41 11:41 WBC Hct 34.7 L MCHC Lymph % (Auto) 9.5 L [place] % (Auto) 11.5 H Lymph # (Auto) 0.6 L Seg Neutrophils % 78.7 H D-Dimer 1683.35 H Sodium Chloride Carbon Dioxide BUN Glucose POC Glucose Ferritin AST ALT Lactate Dehydrogenase 391 H C-Reactive Protein 19.10 H Albumin Salicylates Acetaminophen Valproic Acid Coronavirus (PCR) 07/17/20 07/17/20 07/18/20 11:41 11:41 03:48 WBC 4.2 L Hct 33.0 L MCHC 36 H Lymph % (Auto) 7.9 L [place] % (Auto) Lymph # (Auto) 0.3 L Seg Neutrophils % 85.6 H D-Dimer Sodium Chloride Carbon Dioxide BUN Glucose POC Glucose Ferritin 694.9 H AST ALT Lactate Dehydrogenase C-Reactive Protein Albumin Salicylates Acetaminophen 5.0 L Valproic Acid Coronavirus (PCR) 07/18/20 07/18/20 07/19/20 03:48 23:08 06:49 WBC Hct MCHC Lymph % (Auto) [place] % (Auto) Lymph # (Auto) Seg Neutrophils % D-Dimer Sodium Chloride 108.0 H Carbon Dioxide 21 L BUN 21 H Glucose 150 H 126 H POC Glucose 151 H Ferritin AST 41 H 59 H ALT Lactate Dehydrogenase 448 H C-Reactive Protein 10.70 H Albumin 3.8 L 3.2 L Salicylates Acetaminophen Valproic Acid Coronavirus (PCR) 07/19/20 07/19/20 07/19/20 06:49 06:49 08:21 WBC Hct MCHC Lymph % (Auto) [place] % (Auto) Lymph # (Auto) Seg Neutrophils % D-Dimer 1602.42 H Sodium Chloride Carbon Dioxide BUN Glucose POC Glucose 119 H Ferritin 967.0 H AST ALT Lactate Dehydrogenase C-Reactive Protein Albumin Salicylates Acetaminophen Valproic Acid Coronavirus (PCR) 07/19/20 07/19/20 07/19/20 11:20 17:20 21:15 WBC Hct MCHC Lymph % (Auto) [place] % (Auto) Lymph # (Auto) Seg Neutrophils % D-Dimer Sodium Chloride Carbon Dioxide BUN Glucose POC Glucose 117 H 155 H 133 H Ferritin AST ALT Lactate Dehydrogenase C-Reactive Protein Albumin Salicylates Acetaminophen Valproic Acid Coronavirus (PCR) 07/20/20 07/20/20 07/20/20 05:52 11:16 17:07 WBC Hct MCHC Lymph % (Auto) [place] % (Auto) Lymph # (Auto) Seg Neutrophils % D-Dimer Sodium 136 L Chloride Carbon Dioxide BUN 27 H Glucose 139 H POC Glucose 109 H 157 H Ferritin AST 134 H ALT 213 H Lactate Dehydrogenase C-Reactive Protein Albumin 3.4 L Salicylates Acetaminophen Valproic Acid Coronavirus (PCR) 07/20/20 07/21/20 07/21/20 22:02 07:24 07:24 WBC Hct MCHC Lymph % (Auto) [place] % (Auto) Lymph # (Auto) Seg Neutrophils % D-Dimer 1081.57 H Sodium Chloride Carbon Dioxide BUN Glucose POC Glucose 117 H Ferritin 472.5 H AST ALT Lactate Dehydrogenase C-Reactive Protein Albumin Salicylates Acetaminophen Valproic Acid Coronavirus (PCR) 07/21/20 07/21/20 07/21/20 07:24 07:44 11:44 WBC Hct MCHC Lymph % (Auto) [place] % (Auto) Lymph # (Auto) Seg Neutrophils % D-Dimer Sodium Chloride Carbon Dioxide BUN Glucose POC Glucose 114 H 119 H Ferritin AST ALT Lactate Dehydrogenase 361 H C-Reactive Protein 3.90 H Albumin Salicylates Acetaminophen Valproic Acid Coronavirus (PCR) 07/21/20 07/21/20 07/22/20 16:19 22:29 08:02 WBC Hct MCHC Lymph % (Auto) [place] % (Auto) Lymph # (Auto) Seg Neutrophils % D-Dimer Sodium Chloride Carbon Dioxide BUN Glucose POC Glucose 132 H 120 H 153 H Ferritin AST ALT Lactate Dehydrogenase C-Reactive Protein Albumin Salicylates Acetaminophen Valproic Acid Coronavirus (PCR) 07/22/20 07/22/20 07/22/20 11:35 16:24 22:05 WBC Hct MCHC Lymph % (Auto) [place] % (Auto) Lymph # (Auto) Seg Neutrophils % D-Dimer Sodium Chloride Carbon Dioxide BUN Glucose POC Glucose 116 H 178 H 221 H Ferritin AST ALT Lactate Dehydrogenase C-Reactive Protein Albumin Salicylates Acetaminophen Valproic Acid Coronavirus (PCR)
[2020-07-23 08:48] LABS: Hematocrit 35.1 % (35.5-45.6); Hemoglobin 11.6 gm/dl (11.8-15.2); Mean Corpuscular HGB Conc 33 % (32-34); Mean Corpuscular Volume 90 fl (84-94); Platelet Count 591 K/mm3 (140-440); Red Blood Count 3.92 M/mm3 (3.65-5.03)
[2020-07-23] MEDS ORDERED: FUROSEMIDE 20 MG/2 ML INJ IV ONE (09:00)
[2020-07-23] MEDS: FAMOTIDINE 10 MG TAB PO SCH ×2 (10:01→21:59)
[2020-07-23] MEDS: ZINC SULFATE 220 MG CAP PO SCH ×2 (10:01→21:59)
[2020-07-23] MEDS: ASCORBIC ACID 500 MG TAB PO SCH ×2 (10:01→21:59)
[2020-07-23] MEDS: dexAMETHasone 4 MG/ML VIAL IV SCH (10:02)
[2020-07-23] MEDS: FOLIC ACID 1 MG TAB PO SCH (10:02)
[2020-07-23] MEDS: CHOLECALCIFEROL (VIT D3) 1000 UNIT (25 mcg) TAB PO SCH (10:02)
[2020-07-23 11:21] LABS: Total Cells Counted 100
[2020-07-23 11:22] LABS: Platelet Estimate Consistent w Auto; RBC Morphology Normal
[2020-07-23] MEDS: ENOXAPARIN 40 MG/0.4 ML INJ SUB-Q SCH (21:59)
[2020-07-24] MEDS: BENZONATATE 100 MG CAP PO SCH ×3 (05:53→21:53)
--- NOTE | 2020-07-24 09:01 | Progress Note ---
Assessment and Plan Assessment and plan: #Acute upper respiratory failure Continue oxygen supplementation #Sepsis POA #COVID-19 infection Dexamethasone Antibiotics discontinued as procalcitonin is less than 0.25 Remdesivir completed ID and pulmonology evaluation Trend inflammatory markers #Elevated LFTs Monitor Likely effect of remdesivir # Elevated d-dimer US doppler LE negative for PE #Nicotine dependence Smoking cessation counseling #Alcohol dependence CIPR protocol Folic acid #Hypertension Continue home medications Monitor blood pressure closely #DM mellitus Lantus and lispro Monitor blood glucose as patient is on dexamethasone #Seizure disorder Continue antiepileptic medication #DVT prophylaxis-Lovenox #Discharge planning-Home. Will most likely need oxygen at discharge History Interval history: 07/18. Patient is having coughing spells. awaiting COVID-19 test. Remains on 4 L of oxygen. Pulmonology consulted for respiratory failure. ID on board. Febrile overnight. 07/19. On 6L oxygen. COVID-19 positive. On remdesivir and dexamethasone. Doppler LE ordered. 07/20. Doppler negative. Feels great. No complaints. He is oxygen level desaturated to low 80s with ambulation. 07/21. His oxygen level desaturated to low 80s with ambulation yesterday. Remains on 5 L of oxygen. Pulmonology and ID on board 07/22. He feels great today. Remains on 5 L of oxygen. Pulmonology and ID on board 07/23. Has no complaints. On 4 L of oxygen. Getting dexamethasone. Completed remdesivir. ID and pulmonology recommendations appreciated 07/24. Eager to go home. Remains on 4 L of oxygen. Denies any chest pain, cough or shortness of breath. On dexamethasone Hospitalist Physical - Physical exam Narrative exam: VITAL SIGNS: Reviewed. GENERAL: Awake HEAD: No signs of head trauma. EYES: Pupils are equal. Extraocular motions intact. MOUTH: Oropharynx is normal. NECK: No adenopathy, no JVD. CHEST: Rales CARDIAC: normal S1 and S2, without murmurs, gallops, or rubs. ABDOMEN: Soft, non tender and non distended. No rebound or guarding, and no masses palpated. Bowel Sounds normal. MUSCULOSKELETAL: No edema NEUROLOGIC EXAM: Alert and oriented x3. No focal neurologic deficits SKIN: No obvious lesions - Constitutional Vitals: Temp Pulse Resp BP Pulse Ox 97.7 F 84 16 97/70 94 04/26/21 04:17 07/23/20 22:00 07/24/20 04:17 07/24/20 04:17 07/24/20 08:54 HEART Score - HEART Score Troponin: Troponin T < 0.010 ng/mL (0.00-0.029) 07/17/20 11:41 Results - Labs CBC & Chem 7: 07/23/20 07:43 07/20/20 05:52 Labs: Laboratory Last Values WBC 14.9 K/mm3 (4.5-11.0) H 07/23/20 07:43 RBC 3.92 M/mm3 (3.65-5.03) 07/23/20 07:43 Hgb 11.6 gm/dl (11.8-15.2) L 07/23/20 07:43 Hct 35.1 % (35.5-45.6) L 07/23/20 07:43 MCV 90 fl (84-94) 07/23/20 07:43 MCH 30 pg (28-32) 07/23/20 07:43 MCHC 33 % (32-34) 07/23/20 07:43 RDW 14.0 % (13.2-15.2) 07/23/20 07:43 Plt Count 591 K/mm3 (140-440) H 07/23/20 07:43 Lymph % (Auto) 7.9 % (13.4-35.0) L 07/18/20 03:48 [place] % (Auto) 6.4 % (0.0-7.3) 07/18/20 03:48 Eos % (Auto) 0.0 % (0.0-4.3) 07/18/20 03:48 Baso % (Auto) 0.1 % (0.0-1.8) 07/18/20 03:48 Lymph # (Auto) 0.3 K/mm3 (1.2-5.4) L 07/18/20 03:48 [place] # (Auto) 0.3 K/mm3 (0.0-0.8) 07/18/20 03:48 Eos # (Auto) 0.0 K/mm3 (0.0-0.4) 07/18/20 03:48 Baso # (Auto) 0.0 K/mm3 (0.0-0.1) 07/18/20 03:48 Add Manual Diff Complete 07/23/20 07:43 Total Counted 100 07/23/20 07:43 Seg Neutrophils % 85.6 % (40.0-70.0) H 07/18/20 03:48 Seg Neuts % (Manual) 82.0 % (40.0-70.0) H 07/23/20 07:43 Lymphocytes % (Manual) 15.0 % (13.4-35.0) 07/23/20 07:43 Monocytes % (Manual) 3.0 % (0.0-7.3) 07/23/20 07:43 Nucleated RBC % Not Reportable 07/23/20 07:43 Seg Neutrophils # 3.6 K/mm3 (1.8-7.7) 07/18/20 03:48 Seg Neutrophils # Man 12.2 K/mm3 (1.8-7.7) H 07/23/20 07:43 Band Neutrophils # 0.0 K/mm3 07/23/20 07:43 Lymphocytes # (Manual) 2.2 K/mm3 (1.2-5.4) 07/23/20 07:43 Abs React Lymphs (Man) 0.0 K/mm3 07/23/20 07:43 Monocytes # (Manual) 0.4 K/mm3 (0.0-0.8) 07/23/20 07:43 Eosinophils # (Manual) 0.0 K/mm3 (0.0-0.4) 07/23/20 07:43 Basophils # (Manual) 0.0 K/mm3 (0.0-0.1) 07/23/20 07:43 Metamyelocytes # 0.0 K/mm3 07/23/20 07:43 Myelocytes # 0.0 K/mm3 07/23/20 07:43 Promyelocytes # 0.0 K/mm3 07/23/20 07:43 Blast Cells # 0.0 K/mm3 07/23/20 07:43 WBC Morphology Not Reportable 07/23/20 07:43 Hypersegmented Neuts Not Reportable 07/23/20 07:43 Hyposegmented Neuts Not Reportable 07/23/20 07:43 Hypogranular Neuts Not Reportable 07/23/20 07:43 Smudge Cells Not Reportable 07/23/20 07:43 Toxic Granulation Not Reportable 07/23/20 07:43 Toxic Vacuolation Not Reportable 07/23/20 07:43 Dohle Bodies Not Reportable 07/23/20 07:43 Pelger-Huet Anomaly Not Reportable 07/23/20 07:43 Isidoro Rods Not Reportable 07/23/20 07:43 Platelet Estimate Consistent w auto 07/23/20 07:43 Clumped Platelets Not Reportable 07/23/20 07:43 Plt Clumps, EDTA Not Reportable 07/23/20 07:43 Large Platelets Not Reportable 07/23/20 07:43 Giant Platelets Not Reportable 07/23/20 07:43 Platelet Satelliting Not Reportable 07/23/20 07:43 Plt Morphology Comment Not Reportable 07/23/20 07:43 RBC Morphology Normal 07/23/20 07:43 Dimorphic RBCs Not Reportable 07/23/20 07:43 Polychromasia Not Reportable 07/23/20 07:43 Hypochromasia Not Reportable 07/23/20 07:43 Poikilocytosis Not Reportable 07/23/20 07:43 Anisocytosis Not Reportable 07/23/20 07:43 Microcytosis Not Reportable 07/23/20 07:43 Macrocytosis Not Reportable 07/23/20 07:43 Spherocytes Not Reportable 07/23/20 07:43 Pappenheimer Bodies Not Reportable 07/23/20 07:43 Sickle Cells Not Reportable 07/23/20 07:43 Target Cells Not Reportable 07/23/20 07:43 Tear Drop Cells Not Reportable 07/23/20 07:43 Ovalocytes Not Reportable 07/23/20 07:43 Helmet Cells Not Reportable 07/23/20 07:43 Kinsey-Mccune Bodies Not Reportable 07/23/20 07:43 [place] Rings Not Reportable 07/23/20 07:43 Claude Cells Not Reportable 07/23/20 07:43 Bite Cells Not Reportable 07/23/20 07:43 Crenated Cell Not Reportable 07/23/20 07:43 Elliptocytes Not Reportable 07/23/20 07:43 Acanthocytes (Spur) Not Reportable 07/23/20 07:43 Rouleaux Not Reportable 07/23/20 07:43 Hemoglobin C Crystals Not Reportable 07/23/20 07:43 Schistocytes Not Reportable 07/23/20 07:43 Malaria parasites Not Reportable 07/23/20 07:43 [place] Bodies Not Reportable 07/23/20 07:43 Hem Pathologist Commnt No 07/23/20 07:43 PT 12.9 Sec. (12.2-14.9) 07/17/20 11:41 INR 0.98 (0.87-1.13) 07/17/20 11:41 APTT 35.3 Sec. (24.2-36.6) 07/17/20 11:41 D-Dimer 920.62 ng/mlDDU (0-234) H 07/23/20 07:43 Sodium 136 mmol/L (137-145) L 07/20/20 05:52 Potassium 3.8 mmol/L (3.6-5.0) 07/20/20 05:52 Chloride 100.9 mmol/L (98-107) 07/20/20 05:52 Carbon Dioxide 25 mmol/L (22-30) 07/20/20 05:52 Anion Gap 14 mmol/L 07/20/20 05:52 BUN 27 mg/dL (9-20) H 07/20/20 05:52 Creatinine 0.9 mg/dL (0.8-1.3) 07/20/20 05:52 Estimated GFR > 60 ml/min 07/20/20 05:52 BUN/Creatinine Ratio 30 % 07/20/20 05:52 Glucose 139 mg/dL (75-100) H 07/20/20 05:52 POC Glucose 194 mg/dL (70-105) H 07/23/20 21:14 Lactic Acid 1.10 mmol/L (0.7-2.0) 07/18/20 03:48 Calcium 9.3 mg/dL (8.4-10.2) 07/20/20 05:52 Phosphorus 3.30 mg/dL (2.5-4.5) 07/17/20 11:41 Magnesium 1.90 mg/dL (1.7-2.3) 07/17/20 11:41 Ferritin 415.7 ng/mL (30.0-300.0) H 07/23/20 07:43 Total Bilirubin 0.40 mg/dL (0.1-1.2) 07/20/20 05:52 AST 134 units/L (5-40) H 07/20/20 05:52 ALT 213 units/L (7-56) H 07/20/20 05:52 Alkaline Phosphatase 72 units/L (35-129) 07/20/20 05:52 Lactate Dehydrogenase 307 units/L (91-180) H 07/23/20 07:43 Troponin T < 0.010 ng/mL (0.00-0.029) 07/17/20 11:41 C-Reactive Protein 5.00 mg/dL (0.00-1.30) H 07/23/20 07:43 NT-Pro-B Natriuret Pep 113.4 pg/mL (0-450) 07/18/20 Unknown Total Protein 6.7 g/dL (6.3-8.2) 07/20/20 05:52 Albumin 3.4 g/dL (3.9-5) L 07/20/20 05:52 Albumin/Globulin Ratio 1.0 % 07/20/20 05:52 Procalcitonin 0.10 ng/mL (<0.15) 07/17/20 11:41 Salicylates < 0.3 mg/dL (2.8-20.0) L 07/17/20 11:41 Acetaminophen 5.0 ug/mL (10.0-30.0) L 07/17/20 11:41 Valproic Acid < 2.8 ug/mL (50-100) L 07/17/20 11:41 [place] 0.1 mmol/L (0.0-1.2) 07/17/20 11:41 Plasma/Serum Alcohol < 0.01 % (0-0.07) 07/17/20 11:41 Coronavirus (PCR) Positive (Negative) A 07/17/20 09:30 Young/IV: Voiding Method Toilet Active Medications - Current Medications Current Medications: Generic Name Dose Route Start Last Admin Trade Name Freq PRN Reason Stop Dose Admin Acetaminophen 650 mg 07/17/20 13:10 07/18/20 01:20 Acetaminophen 325 Mg Tab PO 650 mg Q4H PRN Administration Pain MILD(1-3)/Fever >100.5/RUCKER Albuterol 2.5 mg 07/17/20 13:10 Albuterol 2.5 Mg/3 Ml Nebu IH Q4HRT PRN Shortness Of Breath Ascorbic Acid 500 mg 07/17/20 22:00 07/23/20 21:59 Ascorbic Acid 500 Mg Tab PO 500 mg BID NICOL Administration Benzonatate 100 mg 07/18/20 22:00 07/24/20 05:53 Benzonatate 100 Mg Cap PO 100 mg Q8HR NICLO Administration Chlordiazepoxide HCl 50 mg 07/17/20 11:12 Chlordiazepoxide 25 Mg Cap PO Q1HR PRN CIWA-Ar 8-15 Cholecalciferol 1,000 unit 07/18/20 10:00 07/23/20 10:02 Cholecalciferol (Vit D3) 1000 Unit (25 Mcg) Tab PO 1,000 unit QDAY NICOL Administration Dexamethasone 6 mg 07/18/20 10:00 07/23/20 10:02 Dexamethasone 4 Mg/Ml Vial IV 07/26/20 10:01 6 mg DAILY NICOL Administration Enoxaparin Sodium 40 mg 07/19/20 22:00 07/23/20 21:59 Enoxaparin 40 Mg/0.4 Ml Inj SUB-Q 40 mg QDAY@2200 NICOL Administration Protocol Famotidine 10 mg 07/17/20 22:00 07/23/20 21:59 Famotidine 10 Mg Tab PO 10 mg BID NICOL Administration Folic Acid 1 mg 07/17/20 13:14 07/23/20 10:02 Folic Acid 1 Mg Tab PO 1 mg QDAY NICOL Administration Guaifenesin 10 ml 07/18/20 01:00 07/19/20 16:34 Guaifenesin Dm 200/20 Mg Oral Liqd 10 Ml PO 10 ml Q4H PRN Administration Cough Hydromorphone HCl 0.25 mg 07/17/20 13:10 07/22/20 10:08 Hydromorphone 1 Mg/1 Ml Inj IV 0.25 mg Q4H PRN Administration Pain, Moderate (4-6) Lorazepam 2 mg 07/17/20 11:12 Lorazepam 2 Mg/Ml Vial IV Q1HR PRN CIWA-Ar 8-15 Lorazepam 4 mg 07/17/20 11:12 Lorazepam 2 Mg/Ml Vial IV Q1HR PRN CIWA-Ar 16-25 Lorazepam 4 mg 07/17/20 11:12 Lorazepam 2 Mg/Ml Vial IV Q15MIN PRN CIWA-Ar >25 Ondansetron HCl 4 mg 07/17/20 13:10 Ondansetron 4 Mg/2 Ml Inj IV Q8H PRN Nausea And Vomiting Sodium Chloride 10 ml 07/17/20 22:00 07/23/20 22:00 Sodium Chloride 0.9% 10 Ml Flush Syringe IV 10 ml BID NICOL Administration Sodium Chloride 10 ml 07/17/20 13:10 Sodium Chloride 0.9% 10 Ml Flush Syringe IV PRN PRN LINE FLUSH Zinc Sulfate 220 mg 07/17/20 22:00 07/23/20 21:59 Zinc Sulfate 220 Mg Cap PO 220 mg BID NICOL Administration
--- NOTE | 2020-07-24 09:58 | Progress Note ---
Assessment and Plan 50 y/o male with acute respiratory failure secondary to COVID 19 07/24/20: Suggest another dose of lasix again today. Needs walk test to assess oxygen needs. Has no funding but maybe would be able to afford oxygen therapy. Hopeful discharge soon. 07/23/20: Lasix today. Continue to wean FiO2 for sats >88%. Prone as tolerated during the day and sleep prone at night. Continue steroids for a total of 10 days. 07/21/20: Will give lasix today IV . Prone as tolerated. Continue steroids and Remdesivir. Guarded prognosis. Not ready for discharge. 07/20/20: Hold on any further lasix therapy. Steroids for a total of 10 days to end on the 28 based on MAY. Remdesivir for 5. Prone as tolerated. Will continue to follow. 1. Proning as tolerated during the day and sleep prone at night 2. Agree with steroids for 10 days 3. Remdesivir per ID. 4. Does not appear to be a candidate for Actemra 5. Keep as dry as possible Guarded prognosis. Subjective Date of service: 07/24/20 Interval history: no acute events. Down to 3 liters. Objective Vital Signs - 12hr 07/23/20 07/24/20 07/24/20 22:00 04:17 08:54 Temperature 97.7 F Pulse Rate [ 84 Right Radial] Respiratory 16 Rate Blood Pressure 97/70 O2 Sat by Pulse 94 94 Oximetry CBC and BMP: 07/23/20 07:43 07/20/20 05:52 ABG, PT/INR, D-dimer: PT/INR, D-dimer PT 12.9 Sec. (12.2-14.9) 07/17/20 11:41 INR 0.98 (0.87-1.13) 07/17/20 11:41 D-Dimer 920.62 ng/mlDDU (0-234) H 07/23/20 07:43 Abnormal lab findings: Abnormal Labs 07/17/20 07/17/20 07/17/20 09:30 11:41 11:41 WBC Hgb Hct MCHC Plt Count Lymph % (Auto) [place] % (Auto) Lymph # (Auto) Seg Neutrophils % Seg Neuts % (Manual) Seg Neutrophils # Man D-Dimer Sodium 134 L Chloride Carbon Dioxide 19 L BUN Glucose POC Glucose Ferritin AST ALT Lactate Dehydrogenase C-Reactive Protein Albumin 3.6 L Salicylates < 0.3 L Acetaminophen Valproic Acid < 2.8 L Coronavirus (PCR) Positive A 07/17/20 07/17/20 07/17/20 11:41 11:41 11:41 WBC Hgb Hct 34.7 L MCHC Plt Count Lymph % (Auto) 9.5 L [place] % (Auto) 11.5 H Lymph # (Auto) 0.6 L Seg Neutrophils % 78.7 H Seg Neuts % (Manual) Seg Neutrophils # Man D-Dimer 1683.35 H Sodium Chloride Carbon Dioxide BUN Glucose POC Glucose Ferritin AST ALT Lactate Dehydrogenase 391 H C-Reactive Protein 19.10 H Albumin Salicylates Acetaminophen Valproic Acid Coronavirus (PCR) 07/17/20 07/17/20 07/18/20 11:41 11:41 03:48 WBC 4.2 L Hgb Hct 33.0 L MCHC 36 H Plt Count Lymph % (Auto) 7.9 L [place] % (Auto) Lymph # (Auto) 0.3 L Seg Neutrophils % 85.6 H Seg Neuts % (Manual) Seg Neutrophils # Man D-Dimer Sodium Chloride Carbon Dioxide BUN Glucose POC Glucose Ferritin 694.9 H AST ALT Lactate Dehydrogenase C-Reactive Protein Albumin Salicylates Acetaminophen 5.0 L Valproic Acid Coronavirus (PCR) 07/18/20 07/18/20 07/19/20 03:48 23:08 06:49 WBC Hgb Hct MCHC Plt Count Lymph % (Auto) [place] % (Auto) Lymph # (Auto) Seg Neutrophils % Seg Neuts % (Manual) Seg Neutrophils # Man D-Dimer Sodium Chloride 108.0 H Carbon Dioxide 21 L BUN 21 H Glucose 150 H 126 H POC Glucose 151 H Ferritin AST 41 H 59 H ALT Lactate Dehydrogenase 448 H C-Reactive Protein 10.70 H Albumin 3.8 L 3.2 L Salicylates Acetaminophen Valproic Acid Coronavirus (PCR) 07/19/20 07/19/20 07/19/20 06:49 06:49 08:21 WBC Hgb Hct MCHC Plt Count Lymph % (Auto) [place] % (Auto) Lymph # (Auto) Seg Neutrophils % Seg Neuts % (Manual) Seg Neutrophils # Man D-Dimer 1602.42 H Sodium Chloride Carbon Dioxide BUN Glucose POC Glucose 119 H Ferritin 967.0 H AST ALT Lactate Dehydrogenase C-Reactive Protein Albumin Salicylates Acetaminophen Valproic Acid Coronavirus (PCR) 07/19/20 07/19/20 07/19/20 11:20 17:20 21:15 WBC Hgb Hct MCHC Plt Count Lymph % (Auto) [place] % (Auto) Lymph # (Auto) Seg Neutrophils % Seg Neuts % (Manual) Seg Neutrophils # Man D-Dimer Sodium Chloride Carbon Dioxide BUN Glucose POC Glucose 117 H 155 H 133 H Ferritin AST ALT Lactate Dehydrogenase C-Reactive Protein Albumin Salicylates Acetaminophen Valproic Acid Coronavirus (PCR) 07/20/20 07/20/20 07/20/20 05:52 11:16 17:07 WBC Hgb Hct MCHC Plt Count Lymph % (Auto) [place] % (Auto) Lymph # (Auto) Seg Neutrophils % Seg Neuts % (Manual) Seg Neutrophils # Man D-Dimer Sodium 136 L Chloride Carbon Dioxide BUN 27 H Glucose 139 H POC Glucose 109 H 157 H Ferritin AST 134 H ALT 213 H Lactate Dehydrogenase C-Reactive Protein Albumin 3.4 L Salicylates Acetaminophen Valproic Acid Coronavirus (PCR) 07/20/20 07/21/20 07/21/20 22:02 07:24 07:24 WBC Hgb Hct MCHC Plt Count Lymph % (Auto) [place] % (Auto) Lymph # (Auto) Seg Neutrophils % Seg Neuts % (Manual) Seg Neutrophils # Man D-Dimer 1081.57 H Sodium Chloride Carbon Dioxide BUN Glucose POC Glucose 117 H Ferritin 472.5 H AST ALT Lactate Dehydrogenase C-Reactive Protein Albumin Salicylates Acetaminophen Valproic Acid Coronavirus (PCR) 07/21/20 07/21/20 07/21/20 07:24 07:44 11:44 WBC Hgb Hct MCHC Plt Count Lymph % (Auto) [place] % (Auto) Lymph # (Auto) Seg Neutrophils % Seg Neuts % (Manual) Seg Neutrophils # Man D-Dimer Sodium Chloride Carbon Dioxide BUN Glucose POC Glucose 114 H 119 H Ferritin AST ALT Lactate Dehydrogenase 361 H C-Reactive Protein 3.90 H Albumin Salicylates Acetaminophen Valproic Acid Coronavirus (PCR) 07/21/20 07/21/20 07/22/20 16:19 22:29 08:02 WBC Hgb Hct MCHC Plt Count Lymph % (Auto) [place] % (Auto) Lymph # (Auto) Seg Neutrophils % Seg Neuts % (Manual) Seg Neutrophils # Man D-Dimer Sodium Chloride Carbon Dioxide BUN Glucose POC Glucose 132 H 120 H 153 H Ferritin AST ALT Lactate Dehydrogenase C-Reactive Protein Albumin Salicylates Acetaminophen Valproic Acid Coronavirus (PCR) 07/22/20 07/22/20 07/22/20 11:35 16:24 22:05 WBC Hgb Hct MCHC Plt Count Lymph % (Auto) [place] % (Auto) Lymph # (Auto) Seg Neutrophils % Seg Neuts % (Manual) Seg Neutrophils # Damian D-Dimer Sodium Chloride Carbon Dioxide BUN Glucose POC Glucose 116 H 178 H 221 H Ferritin AST ALT Lactate Dehydrogenase C-Reactive Protein Albumin Salicylates Acetaminophen Valproic Acid Coronavirus (PCR) 07/23/20 07/23/20 07/23/20 07:40 07:43 07:43 WBC 14.9 H Hgb 11.6 L Hct 35.1 L MCHC Plt Count 591 H Lymph % (Auto) [place] % (Auto) Lymph # (Auto) Seg Neutrophils % Seg Neuts % (Manual) 82.0 H Seg Neutrophils # Damian 12.2 H D-Dimer 920.62 H Sodium Chloride Carbon Dioxide BUN Glucose POC Glucose 108 H Ferritin AST ALT Lactate Dehydrogenase C-Reactive Protein Albumin Salicylates Acetaminophen Valproic Acid Coronavirus (PCR) 07/23/20 07/23/20 07/23/20 07:43 07:43 16:38 WBC Hgb Hct MCHC Plt Count Lymph % (Auto) [place] % (Auto) Lymph # (Auto) Seg Neutrophils % Seg Neuts % (Manual) Seg Neutrophils # Damian D-Dimer Sodium Chloride Carbon Dioxide BUN Glucose POC Glucose 189 H Ferritin 415.7 H AST ALT Lactate Dehydrogenase 307 H C-Reactive Protein 5.00 H Albumin Salicylates Acetaminophen Valproic Acid Coronavirus (PCR) 07/23/20 21:14 WBC Hgb Hct MCHC Plt Count Lymph % (Auto) [place] % (Auto) Lymph # (Auto) Seg Neutrophils % Seg Neuts % (Manual) Seg Neutrophils # Damian D-Dimer Sodium Chloride Carbon Dioxide BUN Glucose POC Glucose 194 H Ferritin AST ALT Lactate Dehydrogenase C-Reactive Protein Albumin Salicylates Acetaminophen Valproic Acid Coronavirus (PCR)
[2020-07-24] MEDS: ZINC SULFATE 220 MG CAP PO SCH ×2 (10:19→21:53)
[2020-07-24] MEDS: dexAMETHasone 4 MG/ML VIAL IV SCH (10:19)
[2020-07-24] MEDS: CHOLECALCIFEROL (VIT D3) 1000 UNIT (25 mcg) TAB PO SCH (10:19)
[2020-07-24] MEDS: ASCORBIC ACID 500 MG TAB PO SCH ×2 (10:19→21:53)
[2020-07-24] MEDS: FAMOTIDINE 10 MG TAB PO SCH ×2 (10:20→21:54)
[2020-07-24] MEDS: FOLIC ACID 1 MG TAB PO SCH (10:20)
[2020-07-24] MEDS: ENOXAPARIN 40 MG/0.4 ML INJ SUB-Q SCH (21:53)
[2020-07-25] MEDS: BENZONATATE 100 MG CAP PO SCH ×2 (05:12→13:37)
[2020-07-25 06:47] VITALS: BP 116/69
[2020-07-25] MEDS: CHOLECALCIFEROL (VIT D3) 1000 UNIT (25 mcg) TAB PO SCH (09:13)
[2020-07-25] MEDS: ZINC SULFATE 220 MG CAP PO SCH (09:13)
[2020-07-25] MEDS: FOLIC ACID 1 MG TAB PO SCH (09:13)
[2020-07-25] MEDS: ASCORBIC ACID 500 MG TAB PO SCH (09:13)
[2020-07-25] MEDS: FAMOTIDINE 10 MG TAB PO SCH (09:13)
[2020-07-25] MEDS: dexAMETHasone 4 MG/ML VIAL IV SCH (09:14)
--- NOTE | 2020-07-25 11:48 | Discharge Summary ---
Providers - Providers Date of Admission: 07/17/20 13:10 Attending physician: WILDER HERRERA MD 07/17/20 11:14 Consult to Physician [CONS] Urgent Comment: Consulting Provider: AVELINA GRULLON Physician Instructions: Reason For Exam: covid, resp failure 07/18/20 07:21 Consult to Physician [CONS] Routine Comment: Consulting Provider: LAMBERTO KHAN Physician Instructions: Reason For Exam: Respiratory failure - Possible COVID PNA Primary care physician: COTTON CLASSER AIDE Hospitalization Reason for admission: Shortness of breath Condition: Serious Hospital course: 50 YO Male with HTN, HLD, ETOH Dependence, Nicotine Dependence, Seizure Disorder, DM, Mild Intermittent Asthma presents to ED for evaluation. Patient reports "I am having problems breathing". Patient states that he had experienced fatigue, malaise, generalized weakness, shortness of breath, decreased exercise tolerance over the past 1 week with persistently worsening symptoms over the same timeframe. Patient is currently in the custody of law enforcement and was transported to [facility] for further care and evaluation of the aforementioned symptoms. The patient was seen and evaluated in the emergency department. All lab and imaging studies reviewed. Patient found to have a pulse oximetry of 86% on room air which is consistent with acute hypoxemic respi ratory failure. Patient underwent chest x-ray which revealed bilateral pneumonia. Patient found to have sepsis. Patient admitted to medical floor and initiated on sepsis protocol as well as pneumonia protocol, as well as coronavirus protocol. Patient knowledges subjective fever but denies chills, chest pain, palpitation, skin rash, recent ill contacts. Patient underwent coronavirus test and was found to be positive. Prior admission on 11/11/2019 reviewed. All medication listed at time of admission has been reconciled. 07/18. Patient is having coughing spells. awaiting COVID-19 test. Remains on 4 L of oxygen. Pulmonology consulted for respiratory failure. ID on board. Febrile overnight. 07/19. On 6L oxygen. COVID-19 positive. On remdesivir and dexamethasone. Doppler LE ordered. 07/20. Doppler negative. Feels great. No complaints. He is oxygen level desaturated to low 80s with ambulation. 07/21. His oxygen level desaturated to low 80s with ambulation yesterday. Remains on 5 L of oxygen. Pulmonology and ID on board 07/22. He feels great today. Remains on 5 L of oxygen. Pulmonology and ID on board 07/23. Has no complaints. On 4 L of oxygen. Getting dexamethasone. Completed remdesivir. ID and pulmonology recommendations appreciated 07/24. Eager to go home. Remains on 4 L of oxygen. Denies any chest pain, cough or shortness of breath. On dexamethasone 07/25: Patient seen this morning doing very well clinically oxygen evaluation after 50 minutes off oxygen and ambulating patient was satting between 92 and 94% with no exertional dyspnea. Patient's hospital course was characterized by management on remdesivir and dexamethasone and also intermittent Lasix. Recommendation at this time is to complete steroid therapy outpatient continue isolation precautions and follow-up with primary care physician enterprise application analyst and also repeat liver function test outpatient. #Acute upper respiratory failure Continue oxygen supplementation #Sepsis POA #COVID-19 infection Dexamethasone Antibiotics discontinued as procalcitonin is less than 0.25 Remdesivir completed ID and pulmonology evaluation Trend inflammatory markers #Elevated LFTs Monitor Likely effect of remdesivir # Elevated d-dimer US doppler LE negative for PE #Nicotine dependence Smoking cessation counseling #Alcohol dependence CIWA protocol Folic acid #Hypertension Continue home medications Monitor blood pressure closely #DM mellitus Lantus and lispro Monitor blood glucose as patient is on dexamethasone #Seizure disorder Continue antiepileptic medication Disposition: - TO HOME OR SELFCARE Final Discharge Diagnosis (Prints w/discharge instructions): Sepsis secondary to COVID-19 Time spent for discharge: 35 minutes Core Measure Documentation - Palliative Care Palliative Care/ Comfort Measures: Not Applicable - Core Measures Any of the following diagnoses?: none Exam - Physical Exam Narrative exam: VITAL SIGNS: Reviewed. GENERAL: Awake HEAD: No signs of head trauma. EYES: Pupils are equal. Extraocular motions intact. MOUTH: Oropharynx is normal. NECK: No adenopathy, no JVD. CHEST: Rales CARDIAC: normal S1 and S2, without murmurs, gallops, or rubs. ABDOMEN: Soft, non tender and non distended. No rebound or guarding, and no masses palpated. Bowel Sounds normal. MUSCULOSKELETAL: No edema NEUROLOGIC EXAM: Alert and oriented x3. No focal neurologic deficits SKIN: No obvious lesions - Constitutional Vitals: Temp Pulse Resp BP Pulse Ox 98.5 F 57 L 18 116/69 98 07/25/20 05:41 07/25/20 05:41 07/25/20 05:41 07/25/20 05:41 07/25/20 05:41 Plan Activity: advance as tolerated, fall precautions Diet: low fat Special Instructions: record daily weights, record daily BP diary Plan of Treatment: Repeat LFT in 1 week Continue isolation for 14 days Follow up with: PRIMARY CARE, [Primary Care Provider] - 3-5 Days LAMBERTO KHAN MD [Staff Physician] - 7 Days Prescriptions: Dexamethasone 6 mg PO DAILY #3 tablet Folic Acid [Folvite] 1 mg PO QDAY #30 tablet Famotidine [Pepcid] 10 mg PO BID #60 tablet Benzonatate [Tessalon Perles] 100 mg PO Q8HR #14 capsule Ascorbic Acid [Vitamin C] 500 mg PO BID #60 tablet Cholecalciferol Vit D3 [Vitamin D3 1,000 UNIT TAB] 1,000 unit PO QDAY #30 tablet Zinc Sulfate 220 mg PO BID #60 capsule
== END 2020-07-25 14:25 | disposition home or self-care (01) | DRG 871 ==
LOC: ED 10:50 → 3A 13:10
PROVIDERS: ADMIT Internal Medicine; ATTEND Internal Medicine
PROC: XW033E5 Introduction of Remdesivir Anti-infective into Peripheral Vein, Percutaneous Approach, New Technology Group 5 (ICD-10-PCS; principal; 2020-07-17)
DX: A41.9 Sepsis, unspecified organism (principal); U07.1 COVID-19; J96.01 Acute respiratory failure with hypoxia; J12.82 Pneumonia due to coronavirus disease 2019; F17.213 Nicotine dependence, cigarettes, with withdrawal; F10.20 Alcohol dependence, uncomplicated; E78.2 Mixed hyperlipidemia; G40.909 Epilepsy, unspecified, not intractable, without status epilepticus; E11.65 Type 2 diabetes mellitus with hyperglycemia; I10 Essential (primary) hypertension; J45.909 Unspecified asthma, uncomplicated; Z83.3 Family history of diabetes mellitus; Z82.49 Family history of ischemic heart disease and other diseases of the circulatory system; Z71.6 Tobacco abuse counseling
CPT/HCPCS: 36415; 71045; 80053; 80164; 80178; 80320; 82140; 82728; 82962; 83615; 83735; 83880; 84100; 84145; 84484; 85007; 85025; 85379; 85610; 85730; 86140; 87040; 93005; 93970; 96374; 96375; 96376; 99406; G0378; G0480; J0696; J1100; J1170; J1644; J1650; J1940; J1953; J2920; J3411; J7030; U0003

== ENCOUNTER 2020-09-02 17:42 | Inpatient (IN) | payer SELFPAY ==
[2020-09-02] MEDS ORDERED: LACTATED RINGERS 1,000 ML IV ONE (17:55)
[2020-09-02] MEDS ORDERED: dexAMETHasone 4 MG/ML VIAL IV ONE (17:55)
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
[2020-09-02] MEDS ORDERED: ALBUTEROL 2.5 MG/3 ML NEBU IH ONE (18:09)
--- NOTE | 2020-09-02 18:53 | XRay Report ---
CHEST 1 VIEW INDICATION: dyspnea, covid. COMPARISON: 07/17/2020 FINDINGS: Support devices: None. Heart: Normal. Lungs/Pleura: No acute pulmonary or pleural findings. IMPRESSION: 1. No acute findings. Signer Name: Danis Rico MD Signed: 09/02/2020 6:49 PM Workstation Name: [id number]
--- NOTE | 2020-09-02 18:59 | XRay Report ---
RIGHT FEMUR 5 IMAGES AP PELVIS INDICATION: Pelvic and right thigh pain after fall. COMPARISON: No relevant prior imaging study available. FINDINGS: AP pelvis: No acute, displaced fracture or dislocation is seen. Phleboliths are noted in the pelvis. Right femur: There is mild joint space narrowing at the right hip. There is also tricompartmental ost eoarthrosis at the right knee. No acute, displaced fracture or dislocation is seen. IMPRESSION: 1. No acute fracture or dislocation. Signer Name: Danis Rico MD Signed: 09/02/2020 6:54 PM Workstation Name: [id number]
[2020-09-02 19:09] LABS: Basophils # (Auto) 0.1 K/mm3 (0.0-0.1); Basophils % (Auto) 1.4 % (0.0-1.8); Eosinophils % (Auto) 0.7 % (0.0-4.3); Hematocrit 39.7 % (35.5-45.6); Hemoglobin 13.4 gm/dl (11.8-15.2); Lymphocytes # (Auto) 1.1 K/mm3 (1.2-5.4); Lymphocytes % (Auto) 27.6 % (13.4-35.0); Mean Corpuscular HGB Conc 34 % (32-34); Mean Corpuscular Volume 98 fl (84-94); Monocytes # (Auto) 0.5 K/mm3 (0.0-0.8); Monocytes % (Auto) 13.3 % (0.0-7.3); Platelet Count 177 K/mm3 (140-440); Red Blood Count 4.06 M/mm3 (3.65-5.03)
[2020-09-02 19:27] LABS: Red Cell Distribution Width 20.6 % (13.2-15.2)
[2020-09-02 19:33] LABS: Alanine Aminotransferase 65 units/L (7-56); Albumin 4.4 g/dL (3.9-5); Blood Urea Nitrogen 6 mg/dL (9-20); Calcium 8.4 mg/dL (8.4-10.2); Creatine Kinase MB 10.2 ng/mL (0.0-4.0); Hemolysis Index 0
[2020-09-02 19:36] LABS: INR 0.85 (0.87-1.13)
[2020-09-02 19:42] LABS: BUN/Creatinine Ratio 9
--- NOTE | 2020-09-02 20:42 | Cat Scan Report ---
CTA CHEST WITH IV CONTRAST INDICATION: Covid 19, Dyspnea, Hypoxia. TECHNIQUE: Axial CT images were obtained through the chest after injection of IV contrast. 3 plane MIP reconstru ctions were produced. All CT scans at this location are performed using CT dose reduction for ALARA b y means of automated exposure control. COMPARISON: None available. FINDINGS: Pulmonary Arteries: No pulmonary emboli. Thoracic Aorta: No acute abnormality. Heart: Normal. Lungs: No acute air space or interstitial disease. Pleura: No pleural effusion. No pneumothorax. Lymph Nodes: No significant adenopathy. Additional Findings: None. Upper Abdomen: No acute findings. Skeletal Structures: No significant osseous abnormality. IMPRESSION: 1. No CT evidence for pulmonary embolism. 2. No acute findings. Signer Name: Danis Rico MD Signed: 09/02/2020 8:37 PM Workstation Name: [id number]
--- NOTE | 2020-09-02 20:47 | Cat Scan Report ---
CT HEAD WITHOUT CONTRAST INDICATION / CLINICAL INFORMATION: Trauma. Patient fell sustaining head injury. TECHNIQUE: All CT scans at this location are performed using CT dose reduction for ALARA by means of automated e xposure control. COMPARISON: Head CT 09/18/2019 FINDINGS: HEMORRHAGE: No evidence of intracranial hemorrhage or extra-axial fluid collection. EXTRA-AXIAL SPACES: Cortical sulci, sylvian fissures and basilar cisterns have an unremarkable appear ance. VENTRICULAR SYSTEM: The third and lateral ventricles are of normal size and configuration. CEREBRAL PARENCHYMA: No areas of abnormal brain parenchymal attenuation are identified. There is no i ndication of recent infarction. MIDLINE SHIFT OR HERNIATION: There is no mass effect. CEREBELLUM / BRAINSTEM: Brainstem and cerebellum have an unremarkable appearance. MIDLINE STRUCTURES:No abnormalities of the pituitary gland or pineal region are identified. INTRACRANIAL VESSELS:No abnormalities are identified on this noncontrast head CT. ORBITS: visualized portions of the orbits have an unremarkable appearance. SOFT TISSUES of HEAD: No significant abnormality. CALVARIUM: Evaluation of bone windows reveals no abnormalities. PARANASAL SINUSES / MASTOID AIR CELLS: Visualized portions of the paranasal sinuses are free from inf lammatory mucosal disease. Mastoid air cells are normally pneumatized. IMPRESSION: 1. No significant intracranial abnormality. No interval change compared to head CT 09/18/2019 Signer Name: Alcon Harmon MD Signed: 09/02/2020 8:42 PM Workstation Name: [id number]
--- NOTE | 2020-09-02 20:50 | Cat Scan Report ---
CT CERVICAL SPINE WITHOUT CONTRAST INDICATION / CLINICAL INFORMATION: Trauma. Patient fell sustaining neck injury. TECHNIQUE: Axial CT images were obtained through the cervical spine. Sagittal and coronal reformatted images wer e produced. All CT scans at this location are performed using CT dose reduction for ALARA by means of automated exposure control. COMPARISON: None available. FINDINGS: ALIGNMENT: Reversal of the cervical lordosis is noted. There is a mild kyphotic curvature in the cerv ical region. There is no indication of traumatic subluxation. VERTEBRAE: No evidence of fracture or bone destruction. Reactive change secondary to degenerative dis c disease is observed at the endplates adjacent to the C5-6 intervertebral disc. DISC SPACES: Loss of disc height is noted throughout the cervical region. DEGENERATIVE CHANGES: Uncovertebral arthropathy is noted at multiple levels contributing to moderate right-sided foraminal narrowing at the C6 nerve root level. Mild facet arthropathy is observed. CRANIOCERVICAL JUNCTION:No significant abnormality. SPINAL CANAL: Central spinal canal is adequately maintained throughout. PARASPINAL SOFT TISSUES: No significant abnormality. LUNG APICES: No significant abnormality of visualized lungs. IMPRESSION: 1. No indication of fracture or traumatic subluxation. 2. Widespread cervical spondylosis. 3. Similar findings were present on previous study. Signer Name: Alcon Harmon MD Signed: 09/02/2020 8:46 PM Workstation Name: [id number]
[2020-09-02] MEDS ORDERED: ACETAMINOPHEN 325 MG TAB PO PRN (22:07)
[2020-09-02] MEDS ORDERED: hydrALAZINE 20 MG/1 ML INJ IV PRN (22:10)
--- NOTE | 2020-09-02 22:15 | History and Physical Report ---
History of Present Illness Date of examination: 09/02/20 Date of admission: 09/02/20 Chief complaint: Dyspnea respiratory distress History of present illness: 10-year-old gentleman with past medical history of COVID-19, hypertension, hyperlipidemia, alcohol dependence, nicotine dependence, seizure disorder, diabetes, mild intermittent asthma, recently admitted to this hospital for symptomatic COVID-19 late June, had negative lower extremity DVT study, started on remdesivir and dexamethasone was brought to the emergency room because of shortness of breath. Thinks it started within the past few days. He denies headache, neck pain, chest pain, abdominal pain. He denies hematemesis of bright red blood per rectum. On review of systems, endorses multiple abrasions from mechanical fall a few days ago, and also a large right sided thigh ecchymosis. In the emergency room patient is found to have acute hypoxic respiratory failure. Chest x-ray shows no acute finding. Past History Past Medical History: diabetes (Asthma), hypertension, hyperlipidemia, seizures, other (Alcohol dependence, tobacco dependence) Medications and Allergies Allergies Allergy/AdvReac Type Severity Reaction Status Date / Time No Known Allergies Allergy Verified 09/02/20 18:28 Home Medications Medication Instructions Recorded Confirmed Last Taken Type FLUoxetine [PROzac] 20 mg PO QDAY #15 capsule 08/18/18 07/18/20 Unknown Rx diazePAM TAB [Valium] 5 mg PO TID PRN #10 tablet 09/27/18 07/18/20 Unknown Rx Lisa Root [Lisa] 250 mg PO QID PRN #30 capsule 03/12/19 07/18/20 Unknown Rx Ondansetron [Zofran ODT TAB] 4 mg PO Q8HR PRN #20 tab.rapdis 03/12/19 07/18/20 Unknown Rx Multivitamin with Folic Acid [[facility]vs 400 mcg PO QDAY #30 tablet 07/24/19 07/18/20 Unknown Rx One Daily Essential Tablet] amLODIPine 5 mg PO DAILY #30 07/24/19 07/18/20 Unknown Rx levETIRAcetam [Keppra TAB] 500 mg PO BID #60 tablet 09/23/19 07/18/20 Unknown Rx Ascorbic Acid [Vitamin C] 500 mg PO BID #60 tablet 07/25/20 Unknown Rx Benzonatate [Tessalon Perles] 100 mg PO Q8HR #14 capsule 07/25/20 Unknown Rx Cholecalciferol Vit D3 [Vitamin D3 1,000 unit PO QDAY #30 tablet 07/25/20 Unknown Rx 1,000 UNIT TAB] Dexamethasone 6 mg PO DAILY #3 tablet 07/25/20 Unknown Rx Famotidine [Pepcid] 10 mg PO BID #60 tablet 07/25/20 Unknown Rx Folic Acid [Folvite] 1 mg PO QDAY #30 tablet 07/25/20 Unknown Rx Zinc Sulfate 220 mg PO BID #60 capsule 07/25/20 Unknown Rx Active Meds: Active Medications Acetaminophen (Acetaminophen 325 Mg Tab) 650 mg PO Q4H PRN PRN Reason: Pain MILD(1-3)/Fever >100.5/RUCKER Albuterol/Ipratropium (Ipratropium/Albuterol Sulfate 3 Ml Ampul.Neb) 1 ampul IH Q6HRT NICOL Amlodipine Besylate (Amlodipine 5 Mg Tab) 5 mg PO DAILY [facility] Ascorbic Acid (Ascorbic Acid 500 Mg Tab) 500 mg PO BID [facility] Benzonatate (Benzonatate 100 Mg Cap) 100 mg PO Q8HR NICOL Cholecalciferol (Cholecalciferol (Vit D3) 1000 Unit (25 Mcg) Tab) 1,000 unit PO QDAY NICOL Famotidine (Famotidine 20 Mg Tab) 20 mg PO BID NICOL Fluoxetine HCl (Fluoxetine 20 Mg Cap) 20 mg PO QDAY [facility] Folic Acid (Folic Acid 1 Mg Tab) 1 mg PO QDAY [facility] Heparin Sodium (Porcine) (Heparin 5,000 Unit/1 Ml Vial) 5,000 unit SUB-Q Q8HR [facility] Hydralazine HCl (Hydralazine 20 Mg/1 Ml Inj) 10 mg IV Q6H PRN PRN Reason: htn Ceftriaxone Sodium (Rocephin/Ns 2 Gm/100 Ml) 2 gm in 100 mls @ 200 mls/hr IV Q24H NICOL; Protocol Azithromycin (Zithromax/Ns) 500 mg in 250 mls @ 250 mls/hr IV Q24H NICOL; Protocol Levetiracetam (Levetiracetam 500 Mg Tab) 500 mg PO BID [facility] Miscellaneous Medication (Dexamethasone [Dexamethasone]) 6 mg PO DAILY [facility] Multivitamins (Multivitamins ,Therapeutic Tab) each PO QDAY [facility] Ondansetron HCl (Ondansetron 4 Mg/2 Ml Inj) 4 mg IV Q8H PRN PRN Reason: Nausea And Vomiting Sodium Chloride (Sodium Chloride 0.9% 10 Ml Flush Syringe) 10 ml IV BID NICOL Sodium Chloride (Sodium Chloride 0.9% 10 Ml Flush Syringe) 10 ml IV PRN PRN PRN Reason: LINE FLUSH Zinc Sulfate (Zinc Sulfate 220 Mg Cap) 220 mg PO BID NICOL Review of Systems Cardiovascular: shortness of breath, dyspnea on exertion Respiratory: shortness of breath, dyspnea on exertion Exam - Constitutional Vitals: Temp Pulse Resp BP Pulse Ox 98.2 F 104 H 16 144/84 93 09/02/20 17:43 09/02/20 17:43 09/02/20 17:43 09/02/20 17:43 09/02/20 17:43 General appearance: Present: no acute distress, well-nourished - EENT Eyes: Present: PERRL ENT: hearing intact, clear oral mucosa - Neck Neck: Present: supple, normal ROM - Respiratory Respiratory effort: normal Respiratory: bilateral: diminished - Cardiovascular Heart Sounds: Present: S1 & S2. Absent: rub, click - Extremities Extremities: pulses symmetrical, No edema Peripheral Pulses: within normal limits - Abdominal General gastrointestinal: Present: soft, non-tender, non-distended, normal bowel sounds Male genitourinary: Present: normal - Integumentary Integumentary: Present: clear, warm, dry - Musculoskeletal Musculoskeletal: gait normal, strength equal bilaterally - Psychiatric Psychiatric: appropriate mood/affect, intact judgment & insight - Neurologic Neurologic: CNII-XII intact, moves all extremities HEART Score - HEART Score Troponin: Troponin T < 0.010 ng/mL (0.00-0.029) 09/02/20 18:51 Results - Labs CBC & Chem 7: 09/02/20 18:51 09/02/20 18:51 Labs: Laboratory Last Values WBC 3.9 K/mm3 (4.5-11.0) L 09/02/20 18:51 RBC 4.06 M/mm3 (3.65-5.03) 09/02/20 18:51 Hgb 13.4 gm/dl (11.8-15.2) 09/02/20 18:51 Hct 39.7 % (35.5-45.6) 09/02/20 18:51 MCV 98 fl (84-94) H 09/02/20 18:51 MCH 33 pg (28-32) H 09/02/20 18:51 MCHC 34 % (32-34) 09/02/20 18:51 RDW 20.6 % (13.2-15.2) H 09/02/20 18:51 Plt Count 177 K/mm3 (140-440) 09/02/20 18:51 Lymph % (Auto) 27.6 % (13.4-35.0) 09/02/20 18:51 [place] % (Auto) 13.3 % (0.0-7.3) H 09/02/20 18:51 Eos % (Auto) 0.7 % (0.0-4.3) 09/02/20 18:51 Baso % (Auto) 1.4 % (0.0-1.8) 09/02/20 18:51 Lymph # (Auto) 1.1 K/mm3 (1.2-5.4) L 09/02/20 18:51 [place] # (Auto) 0.5 K/mm3 (0.0-0.8) 09/02/20 18:51 Eos # (Auto) 0.0 K/mm3 (0.0-0.4) 09/02/20 18:51 Baso # (Auto) 0.1 K/mm3 (0.0-0.1) 09/02/20 18:51 Seg Neutrophils % 57.0 % (40.0-70.0) 09/02/20 18:51 Seg Neutrophils # 2.2 K/mm3 (1.8-7.7) 09/02/20 18:51 PT 12.1 Sec. (12.2-14.9) L 09/02/20 18:51 INR 0.85 (0.87-1.13) L 09/02/20 18:51 D-Dimer 1430.97 ng/mlDDU (0-234) H 09/02/20 18:51 ABG pH 7.409 (7.320-7.450) 09/02/20 18:03 POC ABG pCO2 35.0 mmHg (32.0-48.0) 09/02/20 18:03 POC ABG pO2 79.9 mmHg (83-108) L 09/02/20 18:03 POC ABG HCO3 21.6 09/02/20 18:03 ABG O2 Saturation 94.8 (0-100) 09/02/20 18:03 POC ABG Base Excess -2.4 09/02/20 18:03 ABG Hemoglobin 13.6 (12.0-17.5) 09/02/20 18:03 ABG Oxyhemoglobin 88.7 (94-98) L 09/02/20 18:03 ABG Methemoglobin 0.3 (0.0-1.5) 09/02/20 18:03 ABG Sodium 138.1 mmol/L (136.0-145.0) 09/02/20 18:03 ABG Potassium 4.0 mmol/L (3.40-4.50) 09/02/20 18:03 ABG Chloride 106.0 mmol/L (98-107) 09/02/20 18:03 ABG Glucose 99 mg/dL (65-95) H 09/02/20 18:03 Carboxyhemoglobin 6.1 (0.5-1.5) H 09/02/20 18:03 FiO2 % 21.0 09/02/20 18:03 Sodium 139 mmol/L (137-145) 09/02/20 18:51 Potassium 4.2 mmol/L (3.6-5.0) 09/02/20 18:51 Chloride 99.5 mmol/L (98-107) 09/02/20 18:51 Carbon Dioxide 27 mmol/L (22-30) 09/02/20 18:51 Anion Gap 17 mmol/L 09/02/20 18:51 BUN 6 mg/dL (9-20) L 09/02/20 18:51 Creatinine 0.7 mg/dL (0.8-1.3) L 09/02/20 18:51 Estimated GFR > 60 ml/min 09/02/20 18:51 BUN/Creatinine Ratio 9 % 09/02/20 18:51 Glucose 98 mg/dL (75-100) 09/02/20 18:51 Lactic Acid 1.90 mmol/L (0.7-2.0) 09/02/20 18:51 Calcium 8.4 mg/dL (8.4-10.2) 09/02/20 18:51 Magnesium 2.20 mg/dL (1.7-2.3) 09/02/20 18:51 Ferritin 88.7 ng/mL (30.0-300.0) 09/02/20 18:51 Total Bilirubin 0.30 mg/dL (0.1-1.2) 09/02/20 18:51 AST 127 units/L (5-40) H 09/02/20 18:51 ALT 65 units/L (7-56) H 09/02/20 18:51 Alkaline Phosphatase 106 units/L (35-129) 09/02/20 18:51 Lactate Dehydrogenase 444 units/L (91-180) H 09/02/20 18:51 Total Creatine Kinase 1018 units/L (55-170) H 09/02/20 18:51 CK-MB (CK-2) 10.2 ng/mL (0.0-4.0) H 09/02/20 18:51 CK-MB (CK-2) Rel Index 1.0 (0-4) 09/02/20 18:51 Troponin T < 0.010 ng/mL (0.00-0.029) 09/02/20 18:51 C-Reactive Protein 0.00 mg/dL (0.00-1.30) 09/02/20 18:51 Total Protein 7.3 g/dL (6.3-8.2) 09/02/20 18:51 Albumin 4.4 g/dL (3.9-5) 09/02/20 18:51 Albumin/Globulin Ratio 1.5 % 09/02/20 18:51 TSH 0.454 mlU/mL (0.270-4.200) 09/02/20 18:51 Arterial Blood Glucose 99 mg/dL (65-95) H 09/02/20 18:03 Arterial Blood Ionized Calcium 4.3 mg/dL (4.6-5.3) L 09/02/20 18:03 Salicylates < 0.3 mg/dL (2.8-20.0) L 09/02/20 18:51 Acetaminophen 5.0 ug/mL (10.0-30.0) L 09/02/20 18:51 Plasma/Serum Alcohol 0.39 % (0-0.07) H 09/02/20 18:51 Microbiology: Microbiology 09/02/20 18:45 Peripheral/Venous Blood Culture - Preliminary Culture in Progress 09/02/20 18:51 Peripheral/Venous Blood Culture - Preliminary Culture in Progress - Imaging and Cardiology Chest x-ray: report reviewed CT scan - chest: report reviewed CT Scan - head: report reviewed Assessment and Plan VTE prophylaxis?: Chemical Plan of care discussed with patient/family: Yes - Patient Problems (1) Acute hypoxemic respiratory failure Current Visit: Yes Status: Acute Plan to address problem: Admit the patient to the medical telemetry. Oxygen by nasal cannula 3 L/min. DuoNeb nebulizer every 4 hours as needed. Rocephin 2 g IV daily. Zithromax 500 mg daily. Dexamethasone 6 mg p.o. daily. Vitamin C 500 mg p.o. twice daily. Zinc 1 tablet p.o. daily. We do the blood cultures sputum culture. 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 DuoNeb nebulizer every 4 hours as needed. Rocephin 2 g IV daily. Zithromax 500 mg daily. Dexamethasone 6 mg p.o. daily. Vitamin C 500 mg p.o. twice daily. Zinc 1 tablet p.o. daily. We do the blood cultures sputum culture. Consult pulmonary if needed (3) Alcohol intoxication Current Visit: Yes Status: Acute Plan to address problem: We counseled regarding quit drinking. We put the patient on folic acid 1 mg p.o. daily. We also put the patient on banana bag (4) Elevated CK Current Visit: Yes Status: Acute Plan to address problem: We will repeat the CK in the morning. We will hold the fluid because of Covid . (5) Elevated liver enzymes Current Visit: Yes Status: Acute Plan to address problem: Repeat CMP in the morning. If needed will consult GI in the morning (6) Fall Current Visit: Yes Status: Acute Plan to address problem: Patient is on fall precaution.. Will consult physical therapy for evaluation (7) Hyperlipidemia Current Visit: No Status: Acute Qualifiers: Hyperlipidemia type: mixed hyperlipidemia Qualified Code(s): E78.2 - Mixed hyperlipidemia Plan to address problem: Low-cholesterol diet: Supportive care continue medical management (8) Hypertension Current Visit: No Status: Acute Qualifiers: Hypertension type: essential hypertension Qualified Code(s): I10 - Essential (primary) hypertension Plan to address problem: Generalized and 10 mg IV every 6 hours as needed. We will continue the home medication we will monitor the blood pressure closely (9) DVT prophylaxis Current Visit: No Status: Acute Plan to address problem: Heparin 5000 units subcu every 8 hours for DVT prophylaxis. Pepcid 20 mg p.o. twice daily for GI prophylaxis. Patient is a full code
[2020-09-02] MEDS ORDERED: THIAMINE 100 MG, FOLIC ACID 1 MG, MULTIPLE VITAMIN INJ, ADULT 10 ML in SODIUM CHLORIDE ... IV ONE (22:23)
[2020-09-02] MEDS ORDERED: AZITHROMYCIN/NS 500 MG/250 ML 500 MG/250 ML BAG IV SCH (23:00)
[2020-09-02] MEDS ORDERED: cefTRIAXone/NS 2 GM/100 ML 2 GM/100 ML BAG IV SCH (23:00)
[2020-09-03] MEDS ORDERED: LORazepam 2 MG/ML VIAL IV PRN (01:01)
[2020-09-03] MEDS: LORazepam 2 MG/ML VIAL IV PRN ×6 (01:13→16:04)
[2020-09-03 01:14] LABS: Bilirubin,Urine NEG (Negative); Blood,Urine NEG (Negative); Color,Urine Yellow (Yellow); Mucus,Urine FEW /HPF; Urobilinogen,Urine < 2.0 mg/dL (<2.0); WBC,Urine < 1.0 /HPF (0.0-6.0)
[2020-09-03] MEDS ORDERED: IPRATROPIUM/ALBUTEROL SULFATE 3 ML AMPUL.NEB IH SCH (02:00)
[2020-09-03] MEDS: ONDANSETRON 4 MG/2 ML INJ IV PRN ×2 (04:10→11:51)
[2020-09-03] MEDS: HEPARIN 5,000 UNIT/1 ML VIAL SUB-Q SCH ×2 (05:35→14:34)
[2020-09-03] MEDS: BENZONATATE 100 MG CAP PO SCH ×2 (05:35→14:38)
[2020-09-03] MEDS ORDERED: ALBUTEROL 2.5 MG/3 ML NEBU IH PRN ×2 (06:29→06:33)
[2020-09-03 07:09] LABS: Basophils % (Auto) 0.2 % (0.0-1.8); Hematocrit 36.8 % (35.5-45.6); Hemoglobin 12.1 gm/dl (11.8-15.2); Lymphocytes # (Auto) 0.3 K/mm3 (1.2-5.4); Lymphocytes % (Auto) 5.5 % (13.4-35.0); Mean Corpuscular HGB Conc 33 % (32-34); Mean Corpuscular Volume 98 fl (84-94); Monocytes # (Auto) 0.2 K/mm3 (0.0-0.8); Monocytes % (Auto) 4.5 % (0.0-7.3); Platelet Count 163 K/mm3 (140-440); Red Blood Count 3.75 M/mm3 (3.65-5.03)
[2020-09-03 07:11] LABS: Blood Urea Nitrogen 9 mg/dL (9-20); Calcium 8.5 mg/dL (8.4-10.2); Hemolysis Index 2; Red Cell Distribution Width 20.6 % (13.2-15.2)
[2020-09-03 07:45] LABS: BUN/Creatinine Ratio 15
--- NOTE | 2020-09-03 09:12 | Progress Note ---
Assessment and Plan Assessment and plan: #Acute hypoxic respiratory failure Pulmonary embolism ruled out with a negative CTA chest COVID-19 test ordered Continue oxygen supplementation Antibiotics and steroids #Possible COVID-19 COVID-19 test ordered On antibiotics Steroids ID evaluation if positive #Alcohol intoxication Had a fall while intoxicated Now has elevated CK from rhabdomyolysis Continue CIWA monitoring Librium #Rhabdomyolysis Trend CK IV hydration #Transaminitis Trend liver function tests #Hypertension Hydralazine as needed #DVT prophylaxis Heparin History Interval history: HPI 50-year-old gentleman with past medical history of COVID-19, hypertension, hyperlipidemia, alcohol dependence, nicotine dependence, seizure disorder, diabetes, mild intermittent asthma, recently admitted to this hospital for symptomatic COVID-19 late June, had negative lower extremity DVT study, started on remdesivir and dexamethasone was brought to the emergency room because of shortness of breath. Thinks it started within the past few days. He denies headache, neck pain, chest pain, abdominal pain. He denies hematemesis of bright red blood per rectum. On review of systems, endorses multiple abrasions from mechanical fall a few days ago, and also a large right sided thigh ecchymosis. In the emergency room patient is found to have acute hypoxic respiratory failure. D-dimer was >1k. CTA chest showed no PE. Chest x-ray shows no acute finding. Patient admitted for further management. Hospital course 09/03. Patient seen and examined at bedside this morning. Patient remains on 2 L of oxygen. Denies any shortness of breath. Awaiting COVID-19 test. On antibiotics and steroids. Hospitalist Physical - Physical exam Narrative exam: VITAL SIGNS: Reviewed. GENERAL: Awake HEAD: No signs of head trauma. EYES: Pupils are equal. Extraocular motions intact. MOUTH: Oropharynx is normal. NECK: No adenopathy, no JVD. CHEST: Diminished breath sounds bilaterally CARDIAC: normal S1 and S2, without murmurs, gallops, or rubs. ABDOMEN: Soft, non tender and non distended. No rebound or guarding, and no masses palpated. Bowel Sounds normal. MUSCULOSKELETAL: No edema NEUROLOGIC EXAM: Alert and oriented x3. No focal neurologic deficits SKIN: No obvious lesions - Constitutional Vitals: Temp Pulse Resp BP Pulse Ox 98.5 F 121 H 20 138/96 96 09/03/20 04:32 09/03/20 04:32 09/03/20 04:32 09/03/20 04:32 09/03/20 08:01 HEART Score - HEART Score Troponin: Troponin T < 0.010 ng/mL (0.00-0.029) 09/02/20 18:51 Results - Labs CBC & Chem 7: 09/03/20 06:02 09/03/20 06:02 Labs: Laboratory Last Values WBC 4.7 K/mm3 (4.5-11.0) 09/03/20 06:02 RBC 3.75 M/mm3 (3.65-5.03) 09/03/20 06:02 Hgb 12.1 gm/dl (11.8-15.2) 09/03/20 06:02 Hct 36.8 % (35.5-45.6) 09/03/20 06:02 MCV 98 fl (84-94) H 09/03/20 06:02 MCH 32 pg (28-32) 09/03/20 06:02 MCHC 33 % (32-34) 09/03/20 06:02 RDW 20.6 % (13.2-15.2) H 09/03/20 06:02 Plt Count 163 K/mm3 (140-440) 09/03/20 06:02 Lymph % (Auto) 5.5 % (13.4-35.0) L 09/03/20 06:02 [place] % (Auto) 4.5 % (0.0-7.3) 09/03/20 06:02 Eos % (Auto) 0.0 % (0.0-4.3) 09/03/20 06:02 Baso % (Auto) 0.2 % (0.0-1.8) 09/03/20 06:02 Lymph # (Auto) 0.3 K/mm3 (1.2-5.4) L 09/03/20 06:02 [place] # (Auto) 0.2 K/mm3 (0.0-0.8) 09/03/20 06:02 Eos # (Auto) 0.0 K/mm3 (0.0-0.4) 09/03/20 06:02 Baso # (Auto) 0.0 K/mm3 (0.0-0.1) 09/03/20 06:02 Seg Neutrophils % 89.8 % (40.0-70.0) H 09/03/20 06:02 Seg Neutrophils # 4.2 K/mm3 (1.8-7.7) 09/03/20 06:02 PT 12.1 Sec. (12.2-14.9) L 09/02/20 18:51 INR 0.85 (0.87-1.13) L 09/02/20 18:51 D-Dimer 1430.97 ng/mlDDU (0-234) H 09/02/20 18:51 ABG pH 7.409 (7.320-7.450) 09/02/20 18:03 POC ABG pCO2 35.0 mmHg (32.0-48.0) 09/02/20 18:03 POC ABG pO2 79.9 mmHg (83-108) L 09/02/20 18:03 POC ABG HCO3 21.6 09/02/20 18:03 ABG O2 Saturation 94.8 (0-100) 09/02/20 18:03 POC ABG Base Excess -2.4 09/02/20 18:03 ABG Hemoglobin 13.6 (12.0-17.5) 09/02/20 18:03 ABG Oxyhemoglobin 88.7 (94-98) L 09/02/20 18:03 ABG Methemoglobin 0.3 (0.0-1.5) 09/02/20 18:03 ABG Sodium 138.1 mmol/L (136.0-145.0) 09/02/20 18:03 ABG Potassium 4.0 mmol/L (3.40-4.50) 09/02/20 18:03 ABG Chloride 106.0 mmol/L (98-107) 09/02/20 18:03 ABG Glucose 99 mg/dL (65-95) H 09/02/20 18:03 Carboxyhemoglobin 6.1 (0.5-1.5) H 09/02/20 18:03 FiO2 % 21.0 09/02/20 18:03 Sodium 138 mmol/L (137-145) 09/03/20 06:02 Potassium 3.7 mmol/L (3.6-5.0) 09/03/20 06:02 Chloride 100.5 mmol/L (98-107) 09/03/20 06:02 Carbon Dioxide 24 mmol/L (22-30) 09/03/20 06:02 Anion Gap 17 mmol/L 09/03/20 06:02 BUN 9 mg/dL (9-20) 09/03/20 06:02 Creatinine 0.6 mg/dL (0.8-1.3) L 09/03/20 06:02 Estimated GFR > 60 ml/min 09/03/20 06:02 BUN/Creatinine Ratio 15 % 09/03/20 06:02 Glucose 145 mg/dL (75-100) H 09/03/20 06:02 Lactic Acid 1.90 mmol/L (0.7-2.0) 09/02/20 18:51 Calcium 8.5 mg/dL (8.4-10.2) 09/03/20 06:02 Magnesium 2.20 mg/dL (1.7-2.3) 09/02/20 18:51 Ferritin 88.7 ng/mL (30.0-300.0) 09/02/20 18:51 Total Bilirubin 0.30 mg/dL (0.1-1.2) 09/02/20 18:51 AST 127 units/L (5-40) H 09/02/20 18:51 ALT 65 units/L (7-56) H 09/02/20 18:51 Alkaline Phosphatase 106 units/L (35-129) 09/02/20 18:51 Lactate Dehydrogenase 444 units/L (91-180) H 09/02/20 18:51 Total Creatine Kinase 1018 units/L (55-170) H 09/02/20 18:51 CK-MB (CK-2) 10.2 ng/mL (0.0-4.0) H 09/02/20 18:51 CK-MB (CK-2) Rel Index 1.0 (0-4) 09/02/20 18:51 Troponin T < 0.010 ng/mL (0.00-0.029) 09/02/20 18:51 C-Reactive Protein 0.00 mg/dL (0.00-1.30) 09/02/20 18:51 Total Protein 7.3 g/dL (6.3-8.2) 09/02/20 18:51 Albumin 4.4 g/dL (3.9-5) 09/02/20 18:51 Albumin/Globulin Ratio 1.5 % 09/02/20 18:51 TSH 0.454 mlU/mL (0.270-4.200) 09/02/20 18:51 Arterial Blood Glucose 99 mg/dL (65-95) H 09/02/20 18:03 Arterial Blood Ionized Calcium 4.3 mg/dL (4.6-5.3) L 09/02/20 18:03 Urine Color Yellow (Yellow) 09/03/20 00:45 Urine Turbidity Clear (Clear) 09/03/20 00:45 Urine pH 6.0 (5.0-7.0) 09/03/20 00:45 Ur Specific [place] 1.028 (1.003-1.030) 09/03/20 00:45 Urine Protein 100 mg/dl mg/dL (Negative) 09/03/20 00:45 Urine Glucose (UA) >=500 mg/dL (Negative) 09/03/20 00:45 Urine Ketones Tr mg/dL (Negative) 09/03/20 00:45 Urine Blood Neg (Negative) 09/03/20 00:45 Urine Nitrite Neg (Negative) 09/03/20 00:45 Urine Bilirubin Neg (Negative) 09/03/20 00:45 Urine Urobilinogen < 2.0 mg/dL (<2.0) 09/03/20 00:45 Ur Leukocyte Esterase Neg (Negative) 09/03/20 00:45 Urine WBC (Auto) < 1.0 /HPF (0.0-6.0) 09/03/20 00:45 Urine RBC (Auto) 3.0 /HPF (0.0-6.0) 09/03/20 00:45 Urine Mucus Few /HPF 09/03/20 00:45 Salicylates < 0.3 mg/dL (2.8-20.0) L 09/02/20 18:51 Acetaminophen 5.0 ug/mL (10.0-30.0) L 09/02/20 18:51 Plasma/Serum Alcohol 0.39 % (0-0.07) H 09/02/20 18:51 Microbiology: Microbiology 09/02/20 18:45 Peripheral/Venous Blood Culture - Preliminary Culture in Progress 09/02/20 18:51 Peripheral/Venous Blood Culture - Preliminary Culture in Progress Young/IV: Voiding Method Toilet Active Medications - Current Medications Current Medications: Generic Name Dose Route Start Last Admin Trade Name Freq PRN Reason Stop Dose Admin Acetaminophen 650 mg 09/02/20 22:07 Acetaminophen 325 Mg Tab PO Q4H PRN Pain MILD(1-3)/Fever >100.5/RUCKER Albuterol 2.5 mg 09/03/20 06:33 Albuterol 2.5 Mg/3 Ml Nebu IH Q4HRT PRN Shortness Of Breath Amlodipine Besylate 5 mg 09/03/20 10:00 Amlodipine 5 Mg Tab PO DAILY REPLACED BY [facility] Ascorbic Acid 500 mg 09/03/20 10:00 Ascorbic Acid 500 Mg Tab PO BID REPLACED BY [facility] Azithromycin 500 mg 09/03/20 22:00 Azithromycin 250 Mg Tab PO 09/06/20 22:01 QHS REPLACED BY [facility] Benzonatate 100 mg 09/03/20 06:00 09/03/20 05:35 Benzonatate 100 Mg Cap PO 100 mg Q8HR NICOL Administration Cholecalciferol 1,000 unit 09/03/20 10:00 Cholecalciferol (Vit D3) 1000 Unit (25 Mcg) Tab PO QDAY REPLACED BY [facility] Dexamethasone 6 mg 09/03/20 10:00 Dexamethasone 2 Mg Tab PO 09/11/20 10:01 DAILY REPLACED BY [facility] Famotidine 20 mg 09/03/20 10:00 Famotidine 20 Mg Tab PO BID REPLACED BY [facility] Fluoxetine HCl 20 mg 09/03/20 10:00 Fluoxetine 20 Mg Cap PO QDAY REPLACED BY [facility] Folic Acid 1 mg 09/03/20 10:00 Folic Acid 1 Mg Tab PO QDAY REPLACED BY [facility] Heparin Sodium (Porcine) 5,000 unit 09/03/20 06:00 09/03/20 05:35 Heparin 5,000 Unit/1 Ml Vial SUB-Q 5,000 unit Q8HR NICOL Administration Hydralazine HCl 10 mg 09/02/20 22:10 Hydralazine 20 Mg/1 Ml Inj IV Q6H PRN htn Ceftriaxone Sodium 2 gm in 100 mls @ 200 mls/hr 09/02/20 23:00 09/03/20 00:22 Rocephin/Ns 2 Gm/100 Ml IV 09/06/20 22:29 200 mls/hr Q24HR@2200 NICOL Administration Protocol Levetiracetam 500 mg 09/03/20 10:00 Levetiracetam 500 Mg Tab PO BID NICOL Lorazepam 2 mg 09/03/20 01:01 09/03/20 08:08 Lorazepam 2 Mg/Ml Vial IV 2 mg Q1HR PRN Administration [facility]ANCE-Rustam 8-15 Lorazepam 4 mg 09/03/20 01:01 Lorazepam 2 Mg/Ml Vial IV Q1HR PRN [facility]ANCE-Rustam 16-25 Multivitamins 1 each 09/03/20 10:00 Multivitamins ,Therapeutic Tab PO QDAY REPLACED BY [facility] Ondansetron HCl 4 mg 09/02/20 22:07 09/03/20 04:10 Ondansetron 4 Mg/2 Ml Inj IV 4 mg Q8H PRN Administration Nausea And Vomiting Sodium Chloride 10 ml 09/03/20 10:00 Sodium Chloride 0.9% 10 Ml Flush Syringe IV BID NICOL Sodium Chloride 10 ml 09/02/20 22:07 Sodium Chloride 0.9% 10 Ml Flush Syringe IV PRN PRN LINE FLUSH Zinc Sulfate 220 mg 09/03/20 10:00 Zinc Sulfate 220 Mg Cap PO BID NICOL
[2020-09-03 09:25] VITALS: BP 134/79
[2020-09-03] MEDS: chlordiazePOXIDE 25 MG CAP PO SCH ×2 (09:30→14:35)
[2020-09-03] MEDS ORDERED: amLODIPine 5 MG TAB PO SCH (10:00)
[2020-09-03] MEDS ORDERED: levETIRAcetam 500 MG TAB PO SCH (10:00)
[2020-09-03] MEDS ORDERED: FLUoxetine 20 MG CAP PO SCH (10:00)
[2020-09-03] MEDS ORDERED: ASCORBIC ACID 500 MG TAB PO SCH (10:00)
[2020-09-03] MEDS ORDERED: MULTIVITAMINS ,THERAPEUTIC TAB PO SCH (10:00)
[2020-09-03] MEDS ORDERED: CHOLECALCIFEROL (VIT D3) 1000 UNIT (25 mcg) TAB PO SCH (10:00)
[2020-09-03] MEDS ORDERED: NON-FORMULARY EACH (Dexamethasone [Dexamethasone] 6 MG Tablet) PO SCH (10:00)
[2020-09-03] MEDS ORDERED: FAMOTIDINE 20 MG TAB PO SCH (10:00)
[2020-09-03] MEDS ORDERED: DEXAMETHASONE 2 MG TAB PO SCH (10:00)
[2020-09-03] MEDS ORDERED: ZINC SULFATE 220 MG CAP PO SCH (10:00)
[2020-09-03] MEDS ORDERED: FOLIC ACID 1 MG TAB PO SCH (10:00)
[2020-09-03] MEDS ORDERED: NICOTINE 21 MG/24 HR PATCH TD SCH (15:00)
[2020-09-03] MEDS ORDERED: AZITHROMYCIN 250 MG TAB PO SCH (22:00)
--- NOTE | 2020-09-04 07:30 | Discharge Summary ---
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 Thinks it started within the past few days. He denies headache, neck pain, chest pain, abdominal pain. He denies hematemesis of bright red blood per rectum. On review of systems, endorses multiple abrasions from mechanical fall a few days ago, and also a large right sided thigh ecchymosis. In the emergency room patient is found to have acute hypoxic respiratory failure. D-dimer was >1k. CTA chest showed no PE. Chest x-ray shows no acute finding. Patient admitted for further management. Hospital course 09/03. Patient seen and examined at bedside this morning. Patient remains on 2 L of oxygen. Denies any shortness of breath. Awaiting COVID-19 test. On antibiotics and steroids. Called by RN that patient wants to leave AMA. He is alert, oriented x4. He understands the risk associated with leaving the hospital without getting complete medical treatment and he still refuses to stay in the hospital. Disposition: DC-07 LEFT AGAINST MED ADVICE Final Discharge Diagnosis (Prints w/discharge instructions): Acute hypoxic respiratory failure Time spent for discharge: 35 mins Core Measure Documentation - Palliative Care Palliative Care/ Comfort Measures: Not Applicable - Core Measures Any of the following diagnoses?: none Exam - Physical Exam Narrative exam: VITAL SIGNS: Reviewed. GENERAL: Awake HEAD: No signs of head trauma. EYES: Pupils are equal. Extraocular motions intact. MOUTH: Oropharynx is normal. NECK: No adenopathy, no JVD. CHEST: Diminished breath sounds bilaterally CARDIAC: normal S1 and S2, without murmurs, gallops, or rubs. ABDOMEN: Soft, non tender and non distended. No rebound or guarding, and no masses palpated. Bowel Sounds normal. MUSCULOSKELETAL: No edema NEUROLOGIC EXAM: Alert and oriented x3. No focal neurologic deficits SKIN: No obvious lesions - Constitutional Vitals: Temp Pulse Resp BP Pulse Ox 98.5 F 112 H 20 134/79 99 09/03/20 04:32 09/03/20 09:19 09/03/20 04:32 09/03/20 09:19 09/03/20 10:05 Plan Follow up with: PRIMARY CAREMD [Primary Care Provider] - 3-5 Days
--- NOTE | 2020-09-04 10:38 | Electrocardiograph Report ---
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
== END 2020-09-03 18:17 | disposition left against medical advice (07) | DRG 189 ==
LOC: ED 17:42 → 3A 22:03
PROVIDERS: ADMIT Hospitalist; ATTEND Internal Medicine
PROC: 4A033R1 Measurement of Arterial Saturation, Peripheral, Percutaneous Approach (ICD-10-PCS; principal; 2020-09-02)
DX: J96.01 Acute respiratory failure with hypoxia (principal); M62.82 Rhabdomyolysis; Z86.16 Personal history of COVID-19; Z20.822 Contact with and (suspected) exposure to COVID-19; S70.11XA Contusion of right thigh, initial encounter; I10 Essential (primary) hypertension; E78.5 Hyperlipidemia, unspecified; G40.909 Epilepsy, unspecified, not intractable, without status epilepticus; E11.9 Type 2 diabetes mellitus without complications; J45.909 Unspecified asthma, uncomplicated; E78.00 Pure hypercholesterolemia, unspecified; F17.200 Nicotine dependence, unspecified, uncomplicated; F10.129 Alcohol abuse with intoxication, unspecified; R79.89 Other specified abnormal findings of blood chemistry; W18.39XA Other fall on same level, initial encounter; Y93.89 Activity, other specified; Z79.899 Other long term (current) drug therapy; Z79.891 Long term (current) use of opiate analgesic; Z79.01 Long term (current) use of anticoagulants; Y92.89 Other specified places as the place of occurrence of the external cause; Y99.8 Other external cause status
CPT/HCPCS: 36415; 70450; 71045; 71275; 72125; 72170; 80048; 80053; 80320; 81001; 82140; 82550; 82553; 82728; 82805; 83615; 83735; 84145; 84443; 84484; 85025; 85379; 85610; 86140; 87040; 93005; 94640; 96374; G0378; G0480; J0456; J0696; J1100; J1644; J2060; J2405; J3411; J7030; J7120; J8540; Q9967; U0003

== ENCOUNTER 2020-09-18 17:37 | Emergency (ER) | payer SELFPAY ==
[2020-09-18 18:05] VITALS: BP 120/79
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
[2020-09-18 20:35] LABS: Bilirubin,Urine NEG (Negative); Blood,Urine SM (Negative); Color,Urine Straw (Yellow); RBC,Urine < 1.0 /HPF (0.0-6.0); Urobilinogen,Urine < 2.0 mg/dL (<2.0)
[2020-09-18 20:43] LABS: Amphetamine Screen,Urine PRESUMPTIVE NEGATIVE; Benzodiazepines Screen,Urine PRESUMPTIVE NEGATIVE; Cannabinoid Screen,Urine PRESUMPTIVE NEGATIVE; Cocaine Screen,Urine PRESUMPTIVE NEGATIVE; Methadone Screen,Urine PRESUMPTIVE NEGATIVE; Opiate Screen,Urine PRESUMPTIVE NEGATIVE
[2020-09-18 20:51] LABS: Basophils # (Auto) 0.1 K/mm3 (0.0-0.1); Basophils % (Auto) 1.4 % (0.0-1.8); Eosinophils # (Auto) 0.1 K/mm3 (0.0-0.4); Hematocrit 41.1 % (35.5-45.6); Hemoglobin 13.8 gm/dl (11.8-15.2); Lymphocytes # (Auto) 1.7 K/mm3 (1.2-5.4); Lymphocytes % (Auto) 29.9 % (13.4-35.0); Mean Corpuscular HGB Conc 34 % (32-34); Mean Corpuscular Volume 100 fl (84-94); Monocytes # (Auto) 0.5 K/mm3 (0.0-0.8); Monocytes % (Auto) 8.6 % (0.0-7.3); Platelet Count 247 K/mm3 (140-440); Red Blood Count 4.13 M/mm3 (3.65-5.03); Red Cell Distribution Width 18.6 % (13.2-15.2)
[2020-09-18 21:11] LABS: Alanine Aminotransferase 61 units/L (7-56); Albumin 4.6 g/dL (3.9-5); Blood Urea Nitrogen 9 mg/dL (9-20); Calcium 8.9 mg/dL (8.4-10.2); Hemolysis Index 6
[2020-09-18 21:12] LABS: BUN/Creatinine Ratio 13
[2020-09-18] MEDS ORDERED: THIAMINE 100 MG, FOLIC ACID 1 MG, MULTIPLE VITAMIN INJ, ADULT 10 ML in SODIUM CHLORIDE ... IV ONE (21:24)
== END 2020-09-18 20:30 ==
LOC: ED 17:37
DX: E86.0 Dehydration (principal); F10.129 Alcohol abuse with intoxication, unspecified; Z53.21 Procedure and treatment not carried out due to patient leaving prior to being seen by health care provider; Z79.899 Other long term (current) drug therapy; Y90.9 Presence of alcohol in blood, level not specified
CPT/HCPCS: 36415; 80053; 80307; 81001; 82550; 83690; 83735; 85025; J3411; J7030; 80320; G0480

== ENCOUNTER 2020-09-29 22:24 | Emergency (ER) | payer SELFPAY ==
[2020-09-30 01:32] VITALS: BP 115/68
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
== END 2020-09-30 02:00 | disposition home or self-care (01) ==
LOC: ED 22:24
DX: F10.129 Alcohol abuse with intoxication, unspecified (principal); I10 Essential (primary) hypertension; E11.9 Type 2 diabetes mellitus without complications; J45.909 Unspecified asthma, uncomplicated; E78.00 Pure hypercholesterolemia, unspecified; Z79.899 Other long term (current) drug therapy; Z86.69 Personal history of other diseases of the nervous system and sense organs; Z98.890 Other specified postprocedural states
CPT/HCPCS: 99282